=== PATIENT | male | born 1960 | race Caucasian/White ===

== ENCOUNTER 2018-10-09 14:29 | Inpatient (IN) | payer MEDICARE ==
[2018-10-09 15:14] LABS: Influenza A Molecular POSITIVE (Negative)
[2018-10-09] MEDS ORDERED: Ondansetron ODT TAB* 4 MG SL ONE (16:23)
[2018-10-09] MEDS ORDERED: Acetaminophen TAB* 325 MG PO ONE (16:23)
[2018-10-09] MEDS ORDERED: Oseltamivir CAP* 75 MG CAP PO ONE (16:23)
[2018-10-09 17:51] LABS: ABS Basophils 0 10^3/ul (0-0.2); ABS Eosinophils 0 10^3/ul (0-0.6); ABS Lymphocytes 0.5 10^3/ul (1.0-4.8); ABS Monocytes 0.5 10^3/ul (0-0.8); ABS Neutrophils 2.5 10^3/ul (1.5-7.7); ABS Nucleated RBC 0 10^3/ul; Eosinophil % 0 %; Hematocrit 50 % (42-52); Hemoglobin 17.3 g/dl (14.0-18.0); Lymphocyte % 14.4 %; Mean Corpuscular HGB Conc 35 g/dl (31-36); Mean Corpuscular Hemoglobin 32 pg (27-31); Mean Corpuscular Volume 93 fL (80-94); Mean Platelet Volume 8.9 fL (7.4-10.4); Nucleated Red Blood Cells % 0.2; Platelet Count 100 10^3/ul (150-450); Red Cell Distribution Width 14 % (10.5-15); White Blood Count 3.6 10^3/ul (3.5-10.8)
[2018-10-09] MEDS ORDERED: NS 0.9% 1000 ML** 1,000 ML IV ONE (17:59)
[2018-10-09] MEDS ORDERED: LORazepam TAB(*) 1 MG PO ONE (17:59)
[2018-10-09 18:01] LABS: Activated Partial Thrombo Time 34.2 seconds (26.0-36.3); INR 0.93 (0.77-1.02)
[2018-10-09 18:04] LABS: Albumin 4.7 g/dL (3.2-5.2); Albumin/Globulin Ratio 1.2 (1-3); BUN/Creatinine Ratio 9.1 (8-20); C Reactive Protein 59.81 mg/L (<8.01); Calcium 9.3 mg/dL (8.6-10.3); EGFR African American 94.6 (>60); EGFR Non-African American 78.2 (>60); Globulin 3.8 g/dL (2-4); Potassium 3.8 mmol/L (3.5-5.0); Total Bilirubin 0.6 mg/dL (0.2-1.0); Total Protein 8.5 g/dL (6.4-8.9); Troponin I 0.01 ng/mL (<0.04)
[2018-10-09 18:06] LABS: CKMB ng/mL 2.7 ng/mL (0.6-6.3)
[2018-10-09] MEDS ORDERED: Thiamine IV* 100 MG, Folic Acid IV* 1 MG, Multiple Vitamin IV ADULT* 10 ML in NS 0.9% 1... IV ONE (18:19)
[2018-10-09] MEDS ORDERED: LORazepam INJ* 2 MG/ML 1 ML VIAL IV PUSH ONE (18:21)
[2018-10-09] MEDS ORDERED: Multiple Vitamin IV ADULT* 10 ML VIAL ONE (18:27)
[2018-10-09] MEDS ORDERED: Folic Acid IV* 50 MG/10 ML VIAL ONE (18:27)
[2018-10-09] MEDS ORDERED: NS 0.9% 1000 ML** 1,000 ML ONE (18:27)
[2018-10-09] MEDS ORDERED: cefTRIAXone(*) 1 GM in NS 0.9% 50 ML* 50 ML IVPB ONE (18:31)
[2018-10-09] MEDS ORDERED: Albuterol/Ipratropium NEB.SOL* Albuterol 2.5 MG/Ipratropium 0.5 MG 3 ML INH ONE (18:33)
[2018-10-09] MEDS ORDERED: Azithromycin IV(*) 500 MG in NS 0.9% 250 ML* 250 ML IVPB SCH (19:00)
[2018-10-09] MEDS ORDERED: ED Azithromycn 500 mg/250 ml 500 MG/250 ML PREMIX.SET IVPB ONE (19:37)
[2018-10-09] MEDS: LORazepam INJ* 2 MG/ML 1 ML VIAL IV PUSH ONE ×2 (19:51→22:30)
--- NOTE | 2018-10-09 19:55 | ED ---
Respiratory - HPI Summary HPI Summary: 58 year old male presents with cough and shortness of breath for the past week. He admits to fever, tremors, and diaphoresis. He states today was not able to drink his normal amount of ETOH which claims 4-6 drinks a day. has history of ETOH withdrawal seizures. He states his chest feels tight but denies any chest pain. He denies any bowel pain. No sore throat. Denies any headache. States that he feels very weak. He is a smoker. He denies any history asthma or COPD. states that his symptoms have become worst over the past week. - History of Current Complaint Chief Complaint: EDFluSymptoms Stated Complaint: FLU Time Seen by Provider: 10/09/18 17:58 Pain Intensity: 8 Sputum Amount: None - Allergy/Home Medications Allergies/Adverse Reactions: Allergies Allergy/AdvReac Type Severity Reaction Status Date / Time No Known Allergies Allergy Verified 09/04/14 13:22 Home Medications: Home Medications Ibuprofen TAB* [Motrin TAB* 400 MG] 400 mg PO Q6H PRN 10/09/18 [History Confirmed 10/09/18] Multivitamins/Minerals TAB* [Theragran/minerals TAB*] 1 tab PO DAILY 10/09/18 [ History Confirmed 10/09/18] PMH/Surg Hx/FS Hx/Imm Hx Endocrine/Hematology History: Denies: Hx Anticoagulant Therapy, Hx Diabetes, Hx Thyroid Disease Cardiovascular History: Denies: Hx Hypertension, Hx Pacemaker/ICD Respiratory History: Denies: Hx Asthma, Hx Chronic Obstructive Pulmonary Disease (COPD) History: Reports: Hx Kidney Stones - RIGHT URETERAL CALCULUS 08/2014, RT URETERAL STENT Denies: Hx Renal Disease Neurological History: Denies: Hx Dementia, Hx Seizures Infectious Disease History: No Infectious Disease History: Denies: Hx Hepatitis, Hx Human Immunodeficiency Virus (HIV), Traveled Outside the [place] in Last 30 Days - Social History Alcohol Use: Daily Alcohol Amount: 3-4 daily Substance Use Type: Reports: None Smoking Status (MU): Current Every Day Smoker Review of Systems Positive: Fever, Chills, Skin Diaphoresis Positive: Chest Pain Positive: Shortness Of Breath, Cough Negative: Abdominal Pain All Other Systems Reviewed And Are Negative: Yes Physical Exam Triage Information Reviewed: Yes Vital Signs On Initial Exam: Initial Vitals Temp Pulse Resp BP Pulse Ox 99.9 F 128 24 164/95 96 10/09/18 14:33 10/09/18 14:33 10/09/18 14:33 10/09/18 14:33 10/09/18 14:33 Vital Signs Reviewed: Yes Appearance: Positive: Ill-Appearing Skin: Positive: Warm, Dry Head/Face: Positive: Normal Head/Face Inspection Eyes: Positive: Normal, EOMI, FRANCES, Conjunctiva Clear ENT: Positive: Normal ENT inspection, Pharynx normal, TMs normal Respiratory/Lung Sounds: Positive: Breath Sounds Present, Decreased Breath Sounds Cardiovascular: Positive: Normal, RRR Abdomen Description: Positive: Nontender, Soft Bowel Sounds: Positive: Present Musculoskeletal: Positive: Normal Neurological: Positive: Normal Psychiatric: Positive: Normal Diagnostics - Vital Signs Vital Signs Temp Pulse Resp BP Pulse Ox 10/09/18 19:51 17 10/09/18 19:00 120 25 99 10/09/18 18:55 102 20 99 10/09/18 18:49 102 21 161/98 97 10/09/18 18:32 16 10/09/18 18:19 107 28 140/91 91 10/09/18 18:11 16 10/09/18 18:10 91 10/09/18 18:00 105 20 88 10/09/18 17:50 115 23 118/81 91 10/09/18 17:48 112 19 91 10/09/18 16:29 99.8 F 114 24 144/103 98 10/09/18 14:33 99.9 F 128 24 164/95 96 - Laboratory Lab Results: Lab Results 10/09/18 10/09/18 10/09/18 Range/Units 15:08 17:24 17:24 WBC 3.6 (3.5-10.8) 10^3/ul RBC 5.40 (4.00-5.40) 10^6/ul Hgb 17.3 (14.0-18.0) g/dl Hct 50 (42-52) % MCV 93 (80-94) fL MCH 32 H (27-31) pg MCHC 35 (31-36) g/dl RDW 14 (10.5-15) % Plt Count 100 L (150-450) 10^3/ul MPV 8.9 (7.4-10.4) fL Neut % (Auto) 69.7 % Lymph % (Auto) 14.4 % [place] % (Auto) 15.1 % Eos % (Auto) 0 % Baso % (Auto) 0.8 % Absolute Neuts (auto) 2.5 (1.5-7.7) 10^3/ul Absolute Lymphs (auto) 0.5 L (1.0-4.8) 10^3/ul Absolute Monos (auto) 0.5 (0-0.8) 10^3/ul Absolute Eos (auto) 0 (0-0.6) 10^3/ul Absolute Basos (auto) 0 (0-0.2) 10^3/ul Absolute Nucleated RBC 0 10^3/ul Nucleated RBC % 0.2 INR (Anticoag Therapy) (0.77-1.02) APTT (26.0-36.3) seconds Sodium 130 L (135-145) mmol/L Potassium 3.8 (3.5-5.0) mmol/L Chloride 92 L (101-111) mmol/L Carbon Dioxide 26 (22-32) mmol/L Anion Gap 12 H (2-11) mmol/L BUN 9 (6-24) mg/dL Creatinine 0.99 (0.67-1.17) mg/dL Est GFR ( Amer) 94.6 (>60) Est GFR (Non-Af Amer) 78.2 (>60) BUN/Creatinine Ratio 9.1 (8-20) Glucose 116 H (70-100) mg/dL Lactic Acid (0.5-2.0) mmol/L Calcium 9.3 (8.6-10.3) mg/dL Total Bilirubin 0.60 (0.2-1.0) mg/dL AST 265 H (13-39) U/L ALT 138 H (7-52) U/L Alkaline Phosphatase 130 H (34-104) U/L Total Creatine Kinase 1204 H (10-223) U/L CK-MB (CK-2) 2.7 (0.6-6.3) ng/mL Troponin I 0.01 (<0.04) ng/mL C-Reactive Protein 59.81 H (<8.01) mg/L B-Natriuretic Peptide (<=100) pg/mL Total Protein 8.5 (6.4-8.9) g/dL Albumin 4.7 (3.2-5.2) g/dL Globulin 3.8 (2-4) g/dL Albumin/Globulin Ratio 1.2 (1-3) Influenza A (Rapid) Positive A (Negative) 10/09/18 10/09/18 10/09/18 Range/Units 17:24 17:25 17:25 WBC (3.5-10.8) 10^3/ul RBC (4.00-5.40) 10^6/ul Hgb (14.0-18.0) g/dl Hct (42-52) % MCV (80-94) fL MCH (27-31) pg MCHC (31-36) g/dl RDW (10.5-15) % Plt Count (150-450) 10^3/ul MPV (7.4-10.4) fL Neut % (Auto) % Lymph % (Auto) % [place] % (Auto) % Eos % (Auto) % Baso % (Auto) % Absolute Neuts (auto) (1.5-7.7) 10^3/ul Absolute Lymphs (auto) (1.0-4.8) 10^3/ul Absolute Monos (auto) (0-0.8) 10^3/ul Absolute Eos (auto) (0-0.6) 10^3/ul Absolute Basos (auto) (0-0.2) 10^3/ul Absolute Nucleated RBC 10^3/ul Nucleated RBC % INR (Anticoag Therapy) 0.93 (0.77-1.02) APTT 34.2 (26.0-36.3) seconds Sodium (135-145) mmol/L Potassium (3.5-5.0) mmol/L Chloride (101-111) mmol/L Carbon Dioxide (22-32) mmol/L Anion Gap (2-11) mmol/L BUN (6-24) mg/dL Creatinine (0.67-1.17) mg/dL Est GFR ( Amer) (>60) Est GFR (Non-Af Amer) (>60) BUN/Creatinine Ratio (8-20) Glucose (70-100) mg/dL Lactic Acid 1.5 (0.5-2.0) mmol/L Calcium (8.6-10.3) mg/dL Total Bilirubin (0.2-1.0) mg/dL AST (13-39) U/L ALT (7-52) U/L Alkaline Phosphatase (34-104) U/L Total Creatine Kinase (10-223) U/L CK-MB (CK-2) (0.6-6.3) ng/mL Troponin I (<0.04) ng/mL C-Reactive Protein (<8.01) mg/L B-Natriuretic Peptide 64 (<=100) pg/mL Total Protein (6.4-8.9) g/dL Albumin (3.2-5.2) g/dL Globulin (2-4) g/dL Albumin/Globulin Ratio (1-3) Influenza A (Rapid) (Negative) Result Diagrams: 10/09/18 17:24 10/09/18 17:24 Lab Statement: Any lab studies that have been ordered have been reviewed, and results considered in the medical decision making process. - Radiology chest Radiology Interpretation Completed By: Radiologist Summary of Radiographic Findings: IMPRESSION: #. Bronchopneumonia. - EKG No standard instances Cardiac Rate: Tachycardia EKG Rhythm: Sinus Tachycardia Re-Evaluation - Re-Evaluation First Eval Re-Evaluation Time: 19:59 Change: Worse Comment: again is tremolous, tachycardia and o2 dropped to 88 required oxygen Disposition - Course Course Of Treatment: 58 year old male presents with cough and shortness of breath for the past week. He admits to fever, tremors, and diaphoresis. He states today was not able to drink his normal amount of ETOH which claims 4-6 drinks a day. has history of ETOH withdrawal seizures. On exam decreased breath sounds heard. Abdomen soft nontender. Patient is tremulous. He gave dosed Ativan and patient's tremors improved. Flu A was positive. White blood cell count normal. Chest x-ray shows pneumonia. LFTs elevated likely due to alcohol. Gave banana bag. Will treat pneumonia with Rocephin and azithromycin. Patient became tremulous and O2 sats dropped required further dose Ativan and supplementary oxygen. Discussed patient feels too weak to go home. Discussed with Dr. Powell who agrees to admit patient. - Differential Dx - Cardiopulmonary Differential Diagnoses - Cardiopulmonary: Bronchitis, Laryngitis, Lower Resp Infection - Diagnoses Provider Diagnoses: Influenza, Pneumonia, Alcohol withdrawal Discharge - Sign-Out/Discharge Documenting (check all that apply): Patient Departure - Discharge Plan Condition: Stable Disposition: ADMITTED TO [facility] Referrals: No Primary Care Phys,NOPCP [Primary Care Provider] - - Billing Disposition and Condition Condition: STABLE Disposition: Admitted to [facility]
[2018-10-09] MEDS ORDERED: LORazepam TAB(*) 0.5 MG PO PRN (21:46)
[2018-10-09] MEDS ORDERED: Ondansetron INJ* 2 MG/ML VIAL IV PRN (21:46)
[2018-10-09] MEDS ORDERED: Morphine INJ* 2 MG/ML 1 ML SYRINGE (TWO MG - NEW SYRINGE VERSION) IV PRN (21:46)
[2018-10-09] MEDS ORDERED: Albuterol 2.5 MG/3 ML NEB.SOL* (0.083%) INH PRN (21:54)
[2018-10-09] MEDS ORDERED: LORazepam INJ* 2 MG/ML 1 ML VIAL ONE (22:29)
[2018-10-09] MEDS: Pantoprazole IV* 40 MG IV SCH (23:12)
[2018-10-09] MEDS: Oseltamivir CAP* 75 MG CAP PO SCH (23:12)
[2018-10-09] MEDS: NS 0.9% 1000 ML** 1,000 ML IV SCH (23:16)
--- NOTE | 2018-10-09 23:53 | HP ---
HISTORY AND PHYSICAL: DATE OF ADMISSION: 10/09/18 PRIMARY CARE PROVIDER: None. CHIEF COMPLAINT: Shortness of breath, cough, and weakness. HISTORY OF PRESENT ILLNESS: Mr. Gill is a 58-year-old male who is a poor historian and not able to provide any specific details regarding his symptoms. He does state that his symptoms were very similar to his granddaughter who was diagnosed with strep throat last week. He thought perhaps that is what he had and therefore he presented to the emergency room. He complains of feeling run down, short of breath, having increased cough, but no sputum production, drenching sweats and fevers over the last few days at least, though again he is unable to tell me how long this has been going on. He also states that he has had mild chest discomfort with coughing as well as upper abdominal pain that hurts all the time in the left upper quadrant, epigastrium and slightly in the right upper quadrant, though this pain is dramatically worse with coughing. The patient also typically drinks 15 beers per day, however, has cut back with being ill. He has noticed increased shaking in his arms and hands as of today. He did not have a flu shot. PAST MEDICAL HISTORY: History of nephrolithiasis. PAST SURGICAL HISTORY: 1. Ureteral stent placement. 2. Right foot surgery. MEDICATIONS: 1. Multivitamin one tab p.o. daily. 2. Ibuprofen 400 mg p.o. twice daily p.r.n. pain. ALLERGIES: No known drug allergies. FAMILY HISTORY: Mom is living. She reportedly has no medical problems. Dad of complications from diabetes. SOCIAL HISTORY: The patient smokes one pack per day, but has again cut back over the last few days. He drinks alcohol as above. 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 He is not . He does have a termite treater helper girlfriend, though he does not live with her. He has no children of his own. REVIEW OF SYSTEMS: The patient admits to fevers, and drenching sweats as above. He states that he has not eaten anything since last Saturday. He has chest discomfort as noted above. No lower extremity edema. He admits to cough and shortness of breath as above. He has vomited three times in the emergency room. He states he has had 15 episodes of diarrhea just today. He admits to the abdominal pain as above. No blood in the stool though. He was not specifically looking for it. No hematuria, no dysuria. 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 No sudden change or loss of vision. He does complain of dysphagia intermittently. He feels achy all over. He has no rashes, no anxiety, no depression. PHYSICAL EXAMINATION GENERAL: The patient is a well-developed, middle age male, seen lying in a stretcher, appearing to be acutely ill, but in no acute distress. VITAL SIGNS: Blood pressure is 106/76, pulse 109, respirations 12, temp 99.8, O2 sat 93% on 3 L. HEENT: There is anisocoria with the right pupil being greater than the left. Both react to light. . Extraocular muscles are intact. Oropharynx is clear. The posterior pharynx is generally erythematous. There is no exudate. There is no submandibular, cervical or supraclavicular adenopathy. Thyroid not enlarged. No thyroid nodules noted. NECK: Exam is unrevealing due to the patient having very thick neck. PULMONARY: Breath sounds are diminished throughout. I do not appreciate any wheezing or crackles at this time. CARDIAC: Normal S1, S2. Heart rate is tachycardiac and regular. There is no lower extremity edema. ABDOMEN: Bowel sounds are present. Abdomen is soft, nondistended. He is mildly tender to palpation in the left upper quadrant and epigastrium. MUSCULOSKELETAL: There is no cyanosis or clubbing of the digits except for the left first finger which had trauma, now appears to be a clubbed digit. There is full active range of motion of all 4 extremities. NEURO: Cranial nerves II through XII are grossly intact. Sensation is intact to light touch throughout. Strength is 5/5 and symmetric in both upper and lower extremities bilaterally. PSYCH: The patient is alert. He is oriented x3. Again, he is a poor historian. He is tremulous and appears to potentially be in alcohol withdrawal. SKIN: Warm and dry. There are no rashes. He does have a scabbed over lesions on the right anterior leg, which was result of an injury. DIAGNOSTIC STUDIES/LAB DATA: WBC 3.6, hemoglobin 17.3, hematocrit 50, platelets 100. INR 0.93. Sodium 130, potassium 3.8, chloride 92, CO2 26, BUN 9 , creatinine 0.99. Glucose 116, lactic acid 1.5, calcium 9.3, bilirubin 0.6, AST 265, ALT 138, alk phos 130. CPK 1204, CK-MB 2.7. Troponin 0.01. CRP 59.81. BNP 64. Albumin 4.7. Influenza A positive. EKG reveals sinus tachycardia without any acute ST-T wave abnormalities. Chest x-ray reveals patchy bilateral alveolar opacities superimposed on mild chronic prominence of the interstitial markings. This is suboptimal inspiration for this patient compared with prior exam documenting hyperinflation. The impression is bronchopneumonia. ASSESSMENT AND PLAN: Mr. Gill is a 58-year-old male with a history of alcoholism, who presents to the emergency room with complaints of being rundown , short of breath and coughing and is diagnosed with influenza. 1. Sepsis secondary to influenza. The patient has been tachycardiac and tachypneic related to being positive for influenza A. I do not believe he has a bacterial pneumonia superimposed on this. The patient again has had increased cough, but there has been no sputum production. At this point, I am going to hold off on any further antibiotic therapy. He did receive ceftriaxone and azithromycin in the emergency room. He will continue on Tamiflu 75 mg p.o. twice daily. He has received 1 L of normal saline and 1 L of banana bag in the emergency room. He will continue on normal saline at 125 mL per hour. 2. Alcohol withdrawal. At this point, the patient does appear to be in alcohol withdrawal likely from cutting back on the amount of alcohol he has been taking in over the last few days. He will be placed on the [place] protocol every two hours. 3. Abdominal pain. I suspect this is possibly a combination of gastritis, given the location of his pain and alcohol intake as well as musculoskeletal pain from the harsh coughing that he has been doing recently. The patient will be started on Protonix 40 mg IV twice daily. He will have Tylenol and morphine available for pain control. I am going to hold off on ibuprofen which he had been using on routine basis at home. 4. Alcoholic hepatitis. The patient's LFTs are elevated in a roughly 2:1 ratio. I suspect this is from his alcohol intake. These can be followed intermittently. I am not going to obtain right upper quadrant ultrasound at this point. 5. Mild rhabdomyolysis. The patient's CPK level is mildly elevated at 1204. We have no priors to compare to. I suspect this is just from being acutely ill. I will get a follow up level tomorrow. 6. Hyponatremia. The patient is mildly hyponatremic with a sodium of 130. This is likely from being acutely ill from the flu and possibly related to his alcohol intake. Followup basic metabolic panel will be obtained tomorrow morning. 7. DVT prophylaxis. According to the Adult Thrombosis Prophylaxis Risk Factor Assessment Guide, the patient has a total risk factor score of 1, making him low risk. Heparin 5000 units subcutaneous q.12 hours will be utilized as DVT prophylaxis. 8. Code status is DNR. The patient indicates that his girlfriend, Shaneka, is his healthcare proxy. TIME SPENT: 65 minutes was spent admitting this patient. [id number]/CPS #: [id number] MTDD
[2018-10-10] MEDS: LORazepam INJ* 2 MG/ML 1 ML VIAL IV PUSH PRN ×8 (03:43→23:17)
[2018-10-10] MEDS ORDERED: Albuterol 2.5 MG/3 ML NEB.SOL* (0.083%) INH PRN (07:34)
[2018-10-10] MEDS: Albuterol 2.5 MG/3 ML NEB.SOL* (0.083%) INH SCH ×2 (07:34→08:11)
[2018-10-10] MEDS: NS 0.9% 1000 ML** 1,000 ML IV SCH ×2 (07:35→15:50)
[2018-10-10] MEDS: Pantoprazole IV* 40 MG IV SCH ×2 (07:37→20:08)
[2018-10-10] MEDS: Heparin VIAL(*) 5000 UNITS/ML VIAL (FIVE THOUSAND) SUBCUT SCH ×2 (07:38→20:08)
[2018-10-10] MEDS: Folic Acid TAB* 1 MG PO SCH (07:42)
[2018-10-10] MEDS: predniSONE TAB* 20 MG PO SCH (07:42)
[2018-10-10] MEDS: Thiamine TAB* 100 MG TAB PO SCH (07:42)
[2018-10-10] MEDS: Oseltamivir CAP* 75 MG CAP PO SCH ×2 (07:42→20:08)
[2018-10-10 08:19] LABS: Calcium 8.3 mg/dL (8.6-10.3); EGFR African American 124.6 (>60); Potassium 3.3 mmol/L (3.5-5.0)
--- NOTE | 2018-10-10 12:12 | PN ---
Subjective Date of Service: 10/10/18 Interval History: Pt seen and examined. Meds and labs reviewed. CC: N/A ROS: Unable to obtain a reliable 14 point ROS given pt is actively withdrawing PHYSICAL EXAM: GEN APPEARANCE: Asleep, arousable, but mumbles unintelligible words, then goes right back to sleep, not in acute distress HEENT: NC/AT, PERRLA, moist oral mucosa, (-) throat erythema NECK: Soft, supple, (-) cervical LAD, (-)JVD HEART: S1S2 WNL, RRR, No MRG CHEST: CTA, BL, GAE, No W/R/R ABD: Soft, ND/NT, NABS 4x Q EXT: No C/C/E SKIN: Warm to touch PSYCH: No active psychosis, hallucinations, depression, SI/HI Objective Active Medications: Acetaminophen (Tylenol Tab*) 650 mg PO Q4H PRN PRN Reason: PAIN Albuterol (Ventolin 2.5 Mg/3 Ml Neb.Janessa*) 2.5 mg INH [id number] AWAKE PRN PRN Reason: SOB/WHEEZING Folic Acid (Folvite Tab*) 1 mg PO DAILY [facility] Last Admin: 10/10/18 07:42 Dose: 1 mg Heparin Sodium (Porcine) (Heparin Vial(*)) 5,000 units SUBCUT Q12HR [facility] Last Admin: 10/10/18 07:38 Dose: 5,000 units Sodium Chloride (Ns 0.9% 1000 Ml) 1,000 mls @ 125 mls/hr IV PER RATE [facility] Last Admin: 10/10/18 07:35 Dose: 125 mls/hr Azithromycin 500 mg/ Sodium (Chloride) 250 mls @ 250 mls/hr IVPB 1800 [facility] Lorazepam (Ativan Inj*) 0 mg IV PUSH Q2H PRN; Protocol PRN Reason: alcohol withdrawal Last Admin: 10/10/18 11:44 Dose: 2 mg Morphine Sulfate (Morphine Inj ((Syringe))*) 4 mg IV Q4H PRN PRN Reason: PAIN - MILD Ondansetron HCl (Zofran Inj*) 4 mg IV Q6H PRN PRN Reason: NAUSEA Oseltamivir Phosphate (Tamiflu Cap*) 75 mg PO BID [facility] Stop: 10/14/18 09:01 Last Admin: 10/10/18 07:42 Dose: 75 mg Pantoprazole Sodium (Protonix Iv*) 40 mg IV BID [facility] Last Admin: 10/10/18 07:37 Dose: 40 mg Prednisone (Deltasone Tab*) 40 mg PO DAILY [facility] Last Admin: 10/10/18 07:42 Dose: 40 mg Thiamine HCl (Vitamin B-1 Tab*) 100 mg PO DAILY [facility] Last Admin: 10/10/18 07:42 Dose: 100 mg Vital Signs - 8 hr 10/10/18 10/10/18 10/10/18 05:05 05:09 05:32 Temperature 100.3 F Pulse Rate 113 Respiratory 20 20 Rate Blood Pressure 154/89 (mmHg) O2 Sat by Pulse 99 Oximetry 10/10/18 10/10/18 10/10/18 05:38 07:09 07:37 Temperature 98.9 F Pulse Rate 116 Respiratory 18 32 Rate Blood Pressure 144/80 (mmHg) O2 Sat by Pulse Oximetry 10/10/18 10/10/18 10/10/18 08:00 09:05 09:42 Temperature 101.5 F Pulse Rate 110 Respiratory 32 30 30 Rate Blood Pressure 149/98 (mmHg) O2 Sat by Pulse 97 Oximetry 10/10/18 10/10/18 10/10/18 10:55 11:02 11:44 Temperature 101.0 F Pulse Rate 99 Respiratory 30 30 30 Rate Blood Pressure 160/92 (mmHg) O2 Sat by Pulse 93 Oximetry Oxygen Devices in Use Now: None Result Diagrams: 10/09/18 17:24 10/10/18 07:48 Additional Lab and Data: Lab Results 10/09/18 10/09/18 10/09/18 Range/Units 15:08 17:24 17:24 WBC 3.6 (3.5-10.8) 10^3/ul RBC 5.40 (4.00-5.40) 10^6/ul Hgb 17.3 (14.0-18.0) g/dl Hct 50 (42-52) % MCV 93 (80-94) fL MCH 32 H (27-31) pg MCHC 35 (31-36) g/dl RDW 14 (10.5-15) % Plt Count 100 L (150-450) 10^3/ul MPV 8.9 (7.4-10.4) fL Neut % (Auto) 69.7 % Lymph % (Auto) 14.4 % [place] % (Auto) 15.1 % Eos % (Auto) 0 % Baso % (Auto) 0.8 % Absolute Neuts (auto) 2.5 (1.5-7.7) 10^3/ul Absolute Lymphs (auto) 0.5 L (1.0-4.8) 10^3/ul Absolute Monos (auto) 0.5 (0-0.8) 10^3/ul Absolute Eos (auto) 0 (0-0.6) 10^3/ul Absolute Basos (auto) 0 (0-0.2) 10^3/ul Absolute Nucleated RBC 0 10^3/ul Nucleated RBC % 0.2 INR (Anticoag Therapy) (0.77-1.02) APTT (26.0-36.3) seconds Sodium 130 L (135-145) mmol/L Potassium 3.8 (3.5-5.0) mmol/L Chloride 92 L (101-111) mmol/L Carbon Dioxide 26 (22-32) mmol/L Anion Gap 12 H (2-11) mmol/L BUN 9 (6-24) mg/dL Creatinine 0.99 (0.67-1.17) mg/dL Est GFR ( Amer) 94.6 (>60) Est GFR (Non-Af Amer) 78.2 (>60) BUN/Creatinine Ratio 9.1 (8-20) Glucose 116 H (70-100) mg/dL Lactic Acid (0.5-2.0) mmol/L Calcium 9.3 (8.6-10.3) mg/dL Total Bilirubin 0.60 (0.2-1.0) mg/dL AST 265 H (13-39) U/L ALT 138 H (7-52) U/L Alkaline Phosphatase 130 H (34-104) U/L Total Creatine Kinase 1204 H (10-223) U/L CK-MB (CK-2) 2.7 (0.6-6.3) ng/mL Troponin I 0.01 (<0.04) ng/mL C-Reactive Protein 59.81 H (<8.01) mg/L B-Natriuretic Peptide (<=100) pg/mL Total Protein 8.5 (6.4-8.9) g/dL Albumin 4.7 (3.2-5.2) g/dL Globulin 3.8 (2-4) g/dL Albumin/Globulin Ratio 1.2 (1-3) Influenza A (Rapid) Positive A (Negative) 10/09/18 10/09/18 10/09/18 Range/Units 17:24 17:25 17:25 WBC (3.5-10.8) 10^3/ul RBC (4.00-5.40) 10^6/ul Hgb (14.0-18.0) g/dl Hct (42-52) % MCV (80-94) fL MCH (27-31) pg MCHC (31-36) g/dl RDW (10.5-15) % Plt Count (150-450) 10^3/ul MPV (7.4-10.4) fL Neut % (Auto) % Lymph % (Auto) % [place] % (Auto) % Eos % (Auto) % Baso % (Auto) % Absolute Neuts (auto) (1.5-7.7) 10^3/ul Absolute Lymphs (auto) (1.0-4.8) 10^3/ul Absolute Monos (auto) (0-0.8) 10^3/ul Absolute Eos (auto) (0-0.6) 10^3/ul Absolute Basos (auto) (0-0.2) 10^3/ul Absolute Nucleated RBC 10^3/ul Nucleated RBC % INR (Anticoag Therapy) 0.93 (0.77-1.02) APTT 34.2 (26.0-36.3) seconds Sodium (135-145) mmol/L Potassium (3.5-5.0) mmol/L Chloride (101-111) mmol/L Carbon Dioxide (22-32) mmol/L Anion Gap (2-11) mmol/L BUN (6-24) mg/dL Creatinine (0.67-1.17) mg/dL Est GFR ( Amer) (>60) Est GFR (Non-Af Amer) (>60) BUN/Creatinine Ratio (8-20) Glucose (70-100) mg/dL Lactic Acid 1.5 (0.5-2.0) mmol/L Calcium (8.6-10.3) mg/dL Total Bilirubin (0.2-1.0) mg/dL AST (13-39) U/L ALT (7-52) U/L Alkaline Phosphatase (34-104) U/L Total Creatine Kinase (10-223) U/L CK-MB (CK-2) (0.6-6.3) ng/mL Troponin I (<0.04) ng/mL C-Reactive Protein (<8.01) mg/L B-Natriuretic Peptide 64 (<=100) pg/mL Total Protein (6.4-8.9) g/dL Albumin (3.2-5.2) g/dL Globulin (2-4) g/dL Albumin/Globulin Ratio (1-3) Influenza A (Rapid) (Negative) Microbiology and Other Data: Microbiology 10/09/18 14:47 Influenza Types A,B Antigen - Final Nasal Specimen received for Influenza A/B Molecular testing Assess/Plan/Problems-Billing Assessment: - Patient Problems (1) Influenza Current Visit: Yes Status: Acute Code(s): J11.1 - FLU DUE TO UNIDENTIFIED INFLUENZA VIRUS W OTH RESP MANIFEST SNOMED Code(s): 7779475 Comment: -With sepsis -Continue Tamiflu as ordered -Continue IVFs and supportive therapy -Received Rocephin and Azithromycin last night and was not continued due to low suspicion of bacterial PNA -Continue to follow CRP (2) Alcohol withdrawal Current Visit: Yes Status: Acute Code(s): F10.239 - ALCOHOL DEPENDENCE WITH WITHDRAWAL, UNSPECIFIED SNOMED Code(s): 359022955 Comment: -Continue [place] protocol (3) Abdominal pain Current Visit: Yes Status: Acute Code(s): R10.9 - UNSPECIFIED ABDOMINAL PAIN SNOMED Code(s): 58670337 Comment: -Unclear if persistent given pt lethargic and confused today -Likely multifactorial from ETOH hepatitis, flu, and presumed gastritis -Continue Protonix and PRN Tylenol (4) Alcoholic hepatitis Current Visit: Yes Status: Acute Code(s): K70.10 - ALCOHOLIC HEPATITIS WITHOUT ASCITES SNOMED Code(s): 206432070 Comment: -Mild -Continue watchful waiting (5) Rhabdomyolysis Current Visit: Yes Status: Acute Code(s): M62.82 - RHABDOMYOLYSIS SNOMED Code(s): 758545562 Comment: #Mild rhabdomyolysis: -Continue IVFs (6) DVT prophylaxis Current Visit: Yes Status: Acute Code(s): ENB7623 - SNOMED Code(s): 670268510 Comment: -Continue Heparin [id number] Status and Disposition: -As above
[2018-10-10 12:25] LABS: C Reactive Protein 30.97 mg/L (<8.01)
[2018-10-10] MEDS: Azithromycin IV(*) 500 MG in NS 0.9% 250 ML* 250 ML IVPB SCH (17:10)
[2018-10-11] MEDS: NS 0.9% 1000 ML** 1,000 ML IV SCH ×3 (01:23→21:34)
[2018-10-11] MEDS: Acetaminophen TAB* 325 MG PO PRN ×2 (03:06→07:41)
[2018-10-11] MEDS: LORazepam INJ* 2 MG/ML 1 ML VIAL IV PUSH PRN ×6 (03:07→13:31)
[2018-10-11 07:21] LABS: ABS Basophils 0 10^3/ul (0-0.2); ABS Eosinophils 0 10^3/ul (0-0.6); ABS Lymphocytes 1.5 10^3/ul (1.0-4.8); ABS Monocytes 0.9 10^3/ul (0-0.8); ABS Neutrophils 2.8 10^3/ul (1.5-7.7); ABS Nucleated RBC 0 10^3/ul; Eosinophil % 0.1 %; Hematocrit 43 % (42-52); Hemoglobin 14.7 g/dl (14.0-18.0); Lymphocyte % 28.1 %; Mean Corpuscular HGB Conc 34 g/dl (31-36); Mean Corpuscular Hemoglobin 32 pg (27-31); Mean Corpuscular Volume 92 fL (80-94); Mean Platelet Volume 8.3 fL (7.4-10.4); Nucleated Red Blood Cells % 0.1; Platelet Count 87 10^3/ul (150-450); Red Blood Count 4.62 10^6/ul (4.00-5.40); Red Cell Distribution Width 14 % (10.5-15); White Blood Count 5.2 10^3/ul (3.5-10.8)
[2018-10-11 07:27] LABS: Albumin 3.4 g/dL (3.2-5.2); Albumin/Globulin Ratio 1.2 (1-3); BUN/Creatinine Ratio 16.7 (8-20); Calcium 8.2 mg/dL (8.6-10.3); EGFR African American 151.1 (>60); EGFR Non-African American 124.9 (>60); Globulin 2.9 g/dL (2-4); HDL Cholesterol 30.2 mg/dL; Magnesium 1.8 mg/dL (1.9-2.7); Phosphorus 1.9 mg/dL (2.5-5.0); Total Bilirubin 0.5 mg/dL (0.2-1.0); Total Protein 6.3 g/dL (6.4-8.9)
[2018-10-11] MEDS: Pantoprazole IV* 40 MG IV SCH ×2 (07:37→20:18)
[2018-10-11 07:38] LABS: TSH (Thyroid Stimulating Horm) 2.11 mcIU/mL (0.34-5.60)
[2018-10-11] MEDS: Heparin VIAL(*) 5000 UNITS/ML VIAL (FIVE THOUSAND) SUBCUT SCH ×2 (07:38→20:19)
[2018-10-11] MEDS: Oseltamivir CAP* 75 MG CAP PO SCH ×2 (07:41→20:22)
[2018-10-11] MEDS: predniSONE TAB* 20 MG PO SCH (07:41)
[2018-10-11] MEDS: Folic Acid TAB* 1 MG PO SCH (07:42)
[2018-10-11] MEDS: Thiamine TAB* 100 MG TAB PO SCH (07:42)
[2018-10-11] MEDS ORDERED: Albuterol 2.5 MG/3 ML NEB.SOL* (0.083%) INH PRN ×2 (11:43→19:49)
[2018-10-11] MEDS: Albuterol 2.5 MG/3 ML NEB.SOL* (0.083%) INH SCH ×2 (12:37→19:33)
--- NOTE | 2018-10-11 14:52 | PN ---
Subjective Date of Service: 10/11/18 Interval History: Pt seen and examined. Pt reported to be delirius and got up and mentioned to the RN that he is going home early afternoon. Tmax = 100.2 o/n. RN reported pt to have intermittent tachypnea. Meds and labs reviewed. CC: N/A ROS: Denied ROBLEDO/dizziness, F/C, N/V, CP, SOB, increased cough, sputum production , abd pain, diarrhea, constipation, dysuria, myalgias, arthralgias, throat pain , and new skin lesions. The rest of the 14 point ROS are unremarkable. PHYSICAL EXAM: GEN APPEARANCE: Asleep, more arousable and more interactive today than yesterday , not in acute distress, not oriented x 3 HEENT: NC/AT, PERRLA, moist oral mucosa, (-) throat erythema NECK: Soft, supple, (-) cervical LAD, (-)JVD HEART: S1S2 WNL, RRR, No MRG CHEST: Minor wheezing, GAE, No W/R/R ABD: Soft, ND/NT, NABS 4x Q EXT: No C/C/E SKIN: Warm to touch PSYCH: No active psychosis, hallucinations, depression, SI/HI Objective Active Medications: Acetaminophen (Tylenol Tab*) 650 mg PO Q4H PRN PRN Reason: PAIN Last Admin: 10/11/18 07:41 Dose: 650 mg Albuterol (Ventolin 2.5 Mg/3 Ml Neb.Janessa*) 2.5 mg INH Q2H PRN PRN Reason: SOB/WHEEZING Albuterol (Ventolin 2.5 Mg/3 Ml Neb.Janessa*) 2.5 mg INH RT.S8MG-M[facility] Last Admin: 10/11/18 12:37 Dose: 2.5 mg Folic Acid (Folvite Tab*) 1 mg PO DAILY [facility] Last Admin: 10/11/18 07:42 Dose: 1 mg Heparin Sodium (Porcine) (Heparin Vial(*)) 5,000 units SUBCUT Q12HR [facility] Last Admin: 10/11/18 07:38 Dose: 5,000 units Sodium Chloride (Ns 0.9% 1000 Ml) 1,000 mls @ 125 mls/hr IV PER RATE [facility] Last Admin: 10/11/18 11:39 Dose: 125 mls/hr Azithromycin 500 mg/ Sodium (Chloride) 250 mls @ 250 mls/hr IVPB 1800 [facility] Last Admin: 10/10/18 17:10 Dose: 250 mls/hr Lorazepam (Ativan Inj*) 0 - [address] .[address] [facility] PROTOCOL JANINA; Protocol Morphine Sulfate (Morphine Inj ((Syringe))*) 4 mg IV Q4H PRN PRN Reason: PAIN - MILD Ondansetron HCl (Zofran Inj*) 4 mg IV Q6H PRN PRN Reason: NAUSEA Oseltamivir Phosphate (Tamiflu Cap*) 75 mg PO BID [facility] Stop: 10/14/18 09:01 Last Admin: 10/11/18 07:41 Dose: 75 mg Pantoprazole Sodium (Protonix Iv*) 40 mg IV BID [facility] Last Admin: 10/11/18 07:37 Dose: 40 mg Prednisone (Deltasone Tab*) 40 mg PO DAILY [facility] Last Admin: 10/11/18 07:41 Dose: 40 mg Thiamine HCl (Vitamin B-1 Tab*) 100 mg PO DAILY [facility] Last Admin: 10/11/18 07:42 Dose: 100 mg Vital Signs - 8 hr 10/11/18 10/11/18 10/11/18 07:00 07:07 07:37 Temperature 100.1 F Pulse Rate 97 Respiratory 30 20 30 Rate Blood Pressure 150/98 (mmHg) O2 Sat by Pulse 93 Oximetry 10/11/18 10/11/18 10/11/18 08:58 09:00 09:03 Temperature 99.6 F Pulse Rate 92 Respiratory 24 24 24 Rate Blood Pressure 140/89 (mmHg) O2 Sat by Pulse 93 Oximetry 10/11/18 10/11/18 10/11/18 09:27 11:15 11:38 Temperature 98.5 F Pulse Rate 85 Respiratory 24 30 28 Rate Blood Pressure 159/101 (mmHg) O2 Sat by Pulse 93 Oximetry 10/11/18 10/11/18 10/11/18 11:39 12:39 13:00 Temperature Pulse Rate 94 Respiratory 28 17 28 Rate Blood Pressure (mmHg) O2 Sat by Pulse 96 Oximetry 10/11/18 10/11/18 10/11/18 13:14 13:31 13:32 Temperature 98.3 F Pulse Rate 90 Respiratory 28 24 24 Rate Blood Pressure 134/78 (mmHg) O2 Sat by Pulse 94 Oximetry 10/11/18 14:44 Temperature Pulse Rate Respiratory 24 Rate Blood Pressure (mmHg) O2 Sat by Pulse Oximetry Oxygen Devices in Use Now: None Result Diagrams: 10/11/18 06:16 10/11/18 06:16 Additional Lab and Data: Lab Results 10/09/18 10/09/18 10/09/18 Range/Units 15:08 17:24 17:24 WBC 3.6 (3.5-10.8) 10^3/ul RBC 5.40 (4.00-5.40) 10^6/ul Hgb 17.3 (14.0-18.0) g/dl Hct 50 (42-52) % MCV 93 (80-94) fL MCH 32 H (27-31) pg MCHC 35 (31-36) g/dl RDW 14 (10.5-15) % Plt Count 100 L (150-450) 10^3/ul MPV 8.9 (7.4-10.4) fL Neut % (Auto) 69.7 % Lymph % (Auto) 14.4 % [place] % (Auto) 15.1 % Eos % (Auto) 0 % Baso % (Auto) 0.8 % Absolute Neuts (auto) 2.5 (1.5-7.7) 10^3/ul Absolute Lymphs (auto) 0.5 L (1.0-4.8) 10^3/ul Absolute Monos (auto) 0.5 (0-0.8) 10^3/ul Absolute Eos (auto) 0 (0-0.6) 10^3/ul Absolute Basos (auto) 0 (0-0.2) 10^3/ul Absolute Nucleated RBC 0 10^3/ul Nucleated RBC % 0.2 INR (Anticoag Therapy) (0.77-1.02) APTT (26.0-36.3) seconds Sodium 130 L (135-145) mmol/L Potassium 3.8 (3.5-5.0) mmol/L Chloride 92 L (101-111) mmol/L Carbon Dioxide 26 (22-32) mmol/L Anion Gap 12 H (2-11) mmol/L BUN 9 (6-24) mg/dL Creatinine 0.99 (0.67-1.17) mg/dL Est GFR ( Amer) 94.6 (>60) Est GFR (Non-Af Amer) 78.2 (>60) BUN/Creatinine Ratio 9.1 (8-20) Glucose 116 H (70-100) mg/dL Lactic Acid (0.5-2.0) mmol/L Calcium 9.3 (8.6-10.3) mg/dL Total Bilirubin 0.60 (0.2-1.0) mg/dL AST 265 H (13-39) U/L ALT 138 H (7-52) U/L Alkaline Phosphatase 130 H (34-104) U/L Total Creatine Kinase 1204 H (10-223) U/L CK-MB (CK-2) 2.7 (0.6-6.3) ng/mL Troponin I 0.01 (<0.04) ng/mL C-Reactive Protein 59.81 H (<8.01) mg/L B-Natriuretic Peptide (<=100) pg/mL Total Protein 8.5 (6.4-8.9) g/dL Albumin 4.7 (3.2-5.2) g/dL Globulin 3.8 (2-4) g/dL Albumin/Globulin Ratio 1.2 (1-3) Influenza A (Rapid) Positive A (Negative) 10/09/18 10/09/18 10/09/18 Range/Units 17:24 17:25 17:25 WBC (3.5-10.8) 10^3/ul RBC (4.00-5.40) 10^6/ul Hgb (14.0-18.0) g/dl Hct (42-52) % MCV (80-94) fL MCH (27-31) pg MCHC (31-36) g/dl RDW (10.5-15) % Plt Count (150-450) 10^3/ul MPV (7.4-10.4) fL Neut % (Auto) % Lymph % (Auto) % [place] % (Auto) % Eos % (Auto) % Baso % (Auto) % Absolute Neuts (auto) (1.5-7.7) 10^3/ul Absolute Lymphs (auto) (1.0-4.8) 10^3/ul Absolute Monos (auto) (0-0.8) 10^3/ul Absolute Eos (auto) (0-0.6) 10^3/ul Absolute Basos (auto) (0-0.2) 10^3/ul Absolute Nucleated RBC 10^3/ul Nucleated RBC % INR (Anticoag Therapy) 0.93 (0.77-1.02) APTT 34.2 (26.0-36.3) seconds Sodium (135-145) mmol/L Potassium (3.5-5.0) mmol/L Chloride (101-111) mmol/L Carbon Dioxide (22-32) mmol/L Anion Gap (2-11) mmol/L BUN (6-24) mg/dL Creatinine (0.67-1.17) mg/dL Est GFR ( Amer) (>60) Est GFR (Non-Af Amer) (>60) BUN/Creatinine Ratio (8-20) Glucose (70-100) mg/dL Lactic Acid 1.5 (0.5-2.0) mmol/L Calcium (8.6-10.3) mg/dL Total Bilirubin (0.2-1.0) mg/dL AST (13-39) U/L ALT (7-52) U/L Alkaline Phosphatase (34-104) U/L Total Creatine Kinase (10-223) U/L CK-MB (CK-2) (0.6-6.3) ng/mL Troponin I (<0.04) ng/mL C-Reactive Protein (<8.01) mg/L B-Natriuretic Peptide 64 (<=100) pg/mL Total Protein (6.4-8.9) g/dL Albumin (3.2-5.2) g/dL Globulin (2-4) g/dL Albumin/Globulin Ratio (1-3) Influenza A (Rapid) (Negative) Microbiology and Other Data: Microbiology 10/09/18 14:47 Influenza Types A,B Antigen - Final Nasal Specimen received for Influenza A/B Molecular testing Assess/Plan/Problems-Billing Assessment: - Patient Problems (1) Influenza Current Visit: Yes Status: Acute Code(s): J11.1 - FLU DUE TO UNIDENTIFIED INFLUENZA VIRUS W OTH RESP MANIFEST SNOMED Code(s): 5374091 Comment: #Influenza: -Likely cause of mild temp elevation last night -With sepsis -Continue Tamiflu as ordered -Continue IVFs and supportive therapy -Continue to follow CRP -Likely causing RAD causing wheezing -Will place pt on Duonebs q6H ATC WA and q2H OF Albuterol PRN (2) Alcohol withdrawal Current Visit: Yes Status: Acute Code(s): F10.239 - ALCOHOL DEPENDENCE WITH WITHDRAWAL, UNSPECIFIED SNOMED Code(s): 972290237 Comment: -Adjusted IV WAM protocol given increasing needs (3) Abdominal pain Current Visit: Yes Status: Acute Code(s): R10.9 - UNSPECIFIED ABDOMINAL PAIN SNOMED Code(s): 72339954 Comment: -Likely multifactorial from ETOH hepatitis, flu, and presumed gastritis -Continue Protonix and PRN Tylenol (4) Alcoholic hepatitis Current Visit: Yes Status: Acute Code(s): K70.10 - ALCOHOLIC HEPATITIS WITHOUT ASCITES SNOMED Code(s): 002393648 Comment: -Mild -Continues to improve -Continue watchful waiting (5) Rhabdomyolysis Current Visit: Yes Status: Acute Code(s): M62.82 - RHABDOMYOLYSIS SNOMED Code(s): 317543812 Comment: #Mild rhabdomyolysis: -Will check CPKs in AM; likely WNL -Continue IVFs (6) DVT prophylaxis Current Visit: Yes Status: Acute Code(s): GTV8292 - SNOMED Code(s): 284175934 Comment: -Continue Heparin SQq12H Status and Disposition: -As above
[2018-10-11] MEDS ORDERED: LORazepam INJ* 2 MG/ML 1 ML VIAL IV PUSH SCH (15:00)
[2018-10-11] MEDS: LORazepam INJ* 2 MG/ML 1 ML VIAL IV PUSH SCH ×6 (15:40→23:58)
[2018-10-11] MEDS: Azithromycin IV(*) 500 MG in NS 0.9% 250 ML* 250 ML IVPB SCH (17:27)
[2018-10-11] MEDS ORDERED: Mouth Piece, Nicotine* 1 EACH CARTRIDGE INH ONE (23:00)
[2018-10-11] MEDS ORDERED: Nicotine Inhaler* 10 MG AMP INH PRN (23:30)
[2018-10-12] MEDS ORDERED: Haloperidol INJ IV/IM* 5 MG/ML AMP IV SLOW PU PRN (01:07)
[2018-10-12] MEDS: LORazepam INJ* 2 MG/ML 1 ML VIAL IV PUSH SCH ×10 (01:59→22:28)
[2018-10-12 07:28] LABS: ABS Basophils 0 10^3/ul (0-0.2); ABS Eosinophils 0 10^3/ul (0-0.6); ABS Lymphocytes 1.8 10^3/ul (1.0-4.8); ABS Monocytes 1.3 10^3/ul (0-0.8); ABS Nucleated RBC 0 10^3/ul; Eosinophil % 0.1 %; Hematocrit 44 % (42-52); Hemoglobin 15.2 g/dl (14.0-18.0); Lymphocyte % 24.9 %; Mean Corpuscular HGB Conc 35 g/dl (31-36); Mean Corpuscular Hemoglobin 32 pg (27-31); Mean Corpuscular Volume 92 fL (80-94); Mean Platelet Volume 7.9 fL (7.4-10.4); Nucleated Red Blood Cells % 0.1; Platelet Count 99 10^3/ul (150-450); Red Blood Count 4.77 10^6/ul (4.00-5.40); Red Cell Distribution Width 14 % (10.5-15)
[2018-10-12 07:40] LABS: Albumin 3.5 g/dL (3.2-5.2); Albumin/Globulin Ratio 1.2 (1-3); BUN/Creatinine Ratio 13.2 (8-20); Calcium 8.6 mg/dL (8.6-10.3); EGFR Non-African American 120.6 (>60); Magnesium 1.7 mg/dL (1.9-2.7); Potassium 2.9 mmol/L (3.5-5.0); Total Bilirubin 0.7 mg/dL (0.2-1.0); Total Protein 6.5 g/dL (6.4-8.9)
[2018-10-12] MEDS: Acetaminophen TAB* 325 MG PO PRN (07:41)
[2018-10-12] MEDS: D5W 1/2 NS KCl 20 Meq 1000 ML* 1,000 ML IV SCH (08:37)
[2018-10-12] MEDS: Thiamine TAB* 100 MG TAB PO SCH (08:38)
[2018-10-12] MEDS: Folic Acid TAB* 1 MG PO SCH (08:38)
[2018-10-12] MEDS: Heparin VIAL(*) 5000 UNITS/ML VIAL (FIVE THOUSAND) SUBCUT SCH ×2 (08:38→22:03)
[2018-10-12] MEDS: Oseltamivir CAP* 75 MG CAP PO SCH (08:38)
[2018-10-12] MEDS: Pantoprazole IV* 40 MG IV SCH ×2 (08:38→22:03)
[2018-10-12] MEDS: predniSONE TAB* 20 MG PO SCH (08:39)
[2018-10-12 08:48] LABS: C Reactive Protein 16.21 mg/L (<8.01)
[2018-10-12] MEDS ORDERED: Potassium Chlor TAB* 20 MEQ TAB.ER PO STA (09:21)
[2018-10-12 09:23] LABS: INR 0.9 (0.77-1.02)
[2018-10-12] MEDS ORDERED: Dexmedetomidine* 400 MCG in NS 0.9% 100 ML* 96 ML IVPB SCH (09:30)
[2018-10-12] MEDS ORDERED: Magnesium Sulfate IV* 3 GM in NS 0.9% 100 ML* 100 ML IVPB ONE (09:30)
[2018-10-12] MEDS ORDERED: Potassium Phosphate IV* 15 MMOLE in NS 0.9% 250 ML* 250 ML IVPB ONE (09:30)
[2018-10-12] MEDS ORDERED: Potassium Chloride LIQUID* 20 MEQ PACKET PO ONE (11:00)
[2018-10-12] MEDS: Albuterol 2.5 MG/3 ML NEB.SOL* (0.083%) INH PRN (12:22)
--- NOTE | 2018-10-12 14:26 | PN ---
Subjective Date of Service: 10/12/18 Interval History: Pt seen and examined. Meds and labs reviewed. D/W Dr. Toussaint who mentioned that pts WAMs score>14. A few minutes later, RN called me for another high WAM score and is getting harder to re-direct pt and to keep calm. Pt transferred to ICU for Precedex gtt protocol ordered. TMax = 100.3 CC: N/A ROS: Unable to obtain reliable ROS given pt is actively withdrawing, confused, and agitated PHYSICAL EXAM: GEN APPEARANCE: Lethargic, arousable, agitated and confused HEENT: NC/AT, PERRLA, moist oral mucosa, (-) throat erythema NECK: Soft, supple, (-) cervical LAD, (-)JVD HEART: S1S2 WNL, RRR, No MRG CHEST: CTA, BL, GAE, No W/R/R ABD: Soft, ND/NT, NABS 4x Q EXT: No C/C/E SKIN: Warm to touch PSYCH: No active psychosis, hallucinations, depression, SI/HI Objective Active Medications: Acetaminophen (Tylenol Tab*) 650 mg PO Q4H PRN PRN Reason: PAIN Last Admin: 10/12/18 07:41 Dose: 650 mg Albuterol (Ventolin 2.5 Mg/3 Ml Neb.Janessa*) 2.5 mg INH Q2H PRN PRN Reason: SOB/WHEEZING Last Admin: 10/12/18 12:22 Dose: 2.5 mg Folic Acid (Folvite Tab*) 1 mg PO DAILY [facility] Last Admin: 10/12/18 08:38 Dose: Not Given Heparin Sodium (Porcine) (Heparin Vial(*)) 5,000 units SUBCUT Q12HR [facility] Last Admin: 10/12/18 08:38 Dose: 5,000 units Azithromycin 500 mg/ Sodium (Chloride) 250 mls @ 250 mls/hr IVPB 1800 [facility] Last Admin: 10/11/18 17:27 Dose: 250 mls/hr Potassium Chloride/Dextrose (D5w 1/2 Ns Kcl 20 Meq 1000 Ml*) 1,000 mls @ 75 mls /hr IV PER RATE [facility] Stop: 10/13/18 22:19 Last Admin: 10/12/18 08:37 Dose: 75 mls/hr Dexmedetomidine HCl 400 mcg/ (Sodium Chloride) 100 mls @ 3.78 mls/hr IVPB Q24H ON [facility] OF [facility]; Protocol Last Admin: 10/12/18 10:14 Dose: 7.5 mls/hr Potassium Phosphate 15 mmole/ (Sodium Chloride) 255 mls @ 42 mls/hr IVPB ONCE ONE Stop: 10/12/18 15:34 Last Admin: 10/12/18 10:18 Dose: 42 mls/hr Lorazepam (Ativan Inj*) 0 - 10 mg IV PUSH .PER [facility] PROTOCOL ON LICENSE OF [facility]; Protocol Last Admin: 10/12/18 10:58 Dose: 6 mg Morphine Sulfate (Morphine Inj ((Syringe))*) 4 mg IV Q4H PRN PRN Reason: PAIN - MILD Nicotine (Nicotine Inhaler*) 10 mg INH Q2H PRN PRN Reason: CRAVING Last Admin: 10/12/18 00:06 Dose: 10 mg Ondansetron HCl (Zofran Inj*) 4 mg IV Q6H PRN PRN Reason: NAUSEA Last Admin: 10/12/18 05:19 Dose: 4 mg Oseltamivir Phosphate (Tamiflu Cap*) 75 mg PO BID [facility] Stop: 10/14/18 09:01 Last Admin: 10/12/18 08:38 Dose: 75 mg Pantoprazole Sodium (Protonix Iv*) 40 mg IV BID [facility] Last Admin: 10/12/18 08:38 Dose: 40 mg Prednisone (Deltasone Tab*) 40 mg PO DAILY [facility] Last Admin: 10/12/18 08:39 Dose: 40 mg Thiamine HCl (Vitamin B-1 Tab*) 100 mg PO DAILY [facility] Last Admin: 10/12/18 08:38 Dose: Not Given Vital Signs - 8 hr 10/12/18 10/12/18 10/12/18 06:45 07:00 07:22 Temperature 100.3 F Pulse Rate 124 Respiratory 30 20 24 Rate Blood Pressure 119/70 (mmHg) O2 Sat by Pulse 92 Oximetry 10/12/18 10/12/18 10/12/18 07:41 08:00 09:00 Temperature Pulse Rate Respiratory 28 30 30 Rate Blood Pressure (mmHg) O2 Sat by Pulse Oximetry 10/12/18 10/12/18 10/12/18 09:09 09:11 09:23 Temperature 99.6 F Pulse Rate 87 Respiratory 24 28 26 Rate Blood Pressure 144/76 (mmHg) O2 Sat by Pulse 93 Oximetry 10/12/18 10/12/18 10/12/18 09:57 10:00 10:01 Temperature Pulse Rate 86 83 81 Respiratory 33 27 29 Rate Blood Pressure 144/95 145/95 (mmHg) O2 Sat by Pulse 89 89 93 Oximetry 10/12/18 10/12/18 10/12/18 10:16 10:21 10:31 Temperature 99.9 F Pulse Rate 82 78 91 Respiratory 37 28 20 Rate Blood Pressure 134/82 134/82 131/112 (mmHg) O2 Sat by Pulse 94 94 93 Oximetry 10/12/18 10/12/18 10/12/18 10:45 10:58 11:00 Temperature Pulse Rate 79 72 Respiratory 28 30 24 Rate Blood Pressure 133/85 (mmHg) O2 Sat by Pulse 92 95 Oximetry 10/12/18 10/12/18 10/12/18 11:02 11:16 11:31 Temperature Pulse Rate 97 70 64 Respiratory 31 30 28 Rate Blood Pressure 147/98 165/99 179/100 (mmHg) O2 Sat by Pulse 92 93 92 Oximetry 10/12/18 10/12/18 10/12/18 11:47 11:57 12:00 Temperature 99.1 F Pulse Rate 72 61 Respiratory 27 25 33 Rate Blood Pressure 166/111 (mmHg) O2 Sat by Pulse 91 93 Oximetry 10/12/18 10/12/18 10/12/18 12:01 12:15 12:16 Temperature Pulse Rate 59 61 54 Respiratory 23 25 20 Rate Blood Pressure 153/114 178/102 (mmHg) O2 Sat by Pulse 93 95 92 Oximetry 10/12/18 10/12/18 10/12/18 12:31 13:00 13:02 Temperature Pulse Rate 60 60 58 Respiratory 24 22 21 Rate Blood Pressure 150/96 161/93 (mmHg) O2 Sat by Pulse 93 91 91 Oximetry 10/12/18 10/12/18 13:15 13:31 Temperature Pulse Rate 59 58 Respiratory 22 19 Rate Blood Pressure 164/88 160/95 (mmHg) O2 Sat by Pulse 91 91 Oximetry Oxygen Devices in Use Now: Nasal Cannula Result Diagrams: 10/12/18 06:56 10/12/18 06:56 Additional Lab and Data: Lab Results 10/09/18 10/09/18 10/09/18 Range/Units 15:08 17:24 17:24 WBC 3.6 (3.5-10.8) 10^3/ul RBC 5.40 (4.00-5.40) 10^6/ul Hgb 17.3 (14.0-18.0) g/dl Hct 50 (42-52) % MCV 93 (80-94) fL MCH 32 H (27-31) pg MCHC 35 (31-36) g/dl RDW 14 (10.5-15) % Plt Count 100 L (150-450) 10^3/ul MPV 8.9 (7.4-10.4) fL Neut % (Auto) 69.7 % Lymph % (Auto) 14.4 % [place] % (Auto) 15.1 % Eos % (Auto) 0 % Baso % (Auto) 0.8 % Absolute Neuts (auto) 2.5 (1.5-7.7) 10^3/ul Absolute Lymphs (auto) 0.5 L (1.0-4.8) 10^3/ul Absolute Monos (auto) 0.5 (0-0.8) 10^3/ul Absolute Eos (auto) 0 (0-0.6) 10^3/ul Absolute Basos (auto) 0 (0-0.2) 10^3/ul Absolute Nucleated RBC 0 10^3/ul Nucleated RBC % 0.2 INR (Anticoag Therapy) (0.77-1.02) APTT (26.0-36.3) seconds Sodium 130 L (135-145) mmol/L Potassium 3.8 (3.5-5.0) mmol/L Chloride 92 L (101-111) mmol/L Carbon Dioxide 26 (22-32) mmol/L Anion Gap 12 H (2-11) mmol/L BUN 9 (6-24) mg/dL Creatinine 0.99 (0.67-1.17) mg/dL Est GFR ( Amer) 94.6 (>60) Est GFR (Non-Af Amer) 78.2 (>60) BUN/Creatinine Ratio 9.1 (8-20) Glucose 116 H (70-100) mg/dL Lactic Acid (0.5-2.0) mmol/L Calcium 9.3 (8.6-10.3) mg/dL Total Bilirubin 0.60 (0.2-1.0) mg/dL AST 265 H (13-39) U/L ALT 138 H (7-52) U/L Alkaline Phosphatase 130 H (34-104) U/L Total Creatine Kinase 1204 H (10-223) U/L CK-MB (CK-2) 2.7 (0.6-6.3) ng/mL Troponin I 0.01 (<0.04) ng/mL C-Reactive Protein 59.81 H (<8.01) mg/L B-Natriuretic Peptide (<=100) pg/mL Total Protein 8.5 (6.4-8.9) g/dL Albumin 4.7 (3.2-5.2) g/dL Globulin 3.8 (2-4) g/dL Albumin/Globulin Ratio 1.2 (1-3) Influenza A (Rapid) Positive A (Negative) 10/09/18 10/09/18 10/09/18 Range/Units 17:24 17:25 17:25 WBC (3.5-10.8) 10^3/ul RBC (4.00-5.40) 10^6/ul Hgb (14.0-18.0) g/dl Hct (42-52) % MCV (80-94) fL MCH (27-31) pg MCHC (31-36) g/dl RDW (10.5-15) % Plt Count (150-450) 10^3/ul MPV (7.4-10.4) fL Neut % (Auto) % Lymph % (Auto) % [place] % (Auto) % Eos % (Auto) % Baso % (Auto) % Absolute Neuts (auto) (1.5-7.7) 10^3/ul Absolute Lymphs (auto) (1.0-4.8) 10^3/ul Absolute Monos (auto) (0-0.8) 10^3/ul Absolute Eos (auto) (0-0.6) 10^3/ul Absolute Basos (auto) (0-0.2) 10^3/ul Absolute Nucleated RBC 10^3/ul Nucleated RBC % INR (Anticoag Therapy) 0.93 (0.77-1.02) APTT 34.2 (26.0-36.3) seconds Sodium (135-145) mmol/L Potassium (3.5-5.0) mmol/L Chloride (101-111) mmol/L Carbon Dioxide (22-32) mmol/L Anion Gap (2-11) mmol/L BUN (6-24) mg/dL Creatinine (0.67-1.17) mg/dL Est GFR ( Amer) (>60) Est GFR (Non-Af Amer) (>60) BUN/Creatinine Ratio (8-20) Glucose (70-100) mg/dL Lactic Acid 1.5 (0.5-2.0) mmol/L Calcium (8.6-10.3) mg/dL Total Bilirubin (0.2-1.0) mg/dL AST (13-39) U/L ALT (7-52) U/L Alkaline Phosphatase (34-104) U/L Total Creatine Kinase (10-223) U/L CK-MB (CK-2) (0.6-6.3) ng/mL Troponin I (<0.04) ng/mL C-Reactive Protein (<8.01) mg/L B-Natriuretic Peptide 64 (<=100) pg/mL Total Protein (6.4-8.9) g/dL Albumin (3.2-5.2) g/dL Globulin (2-4) g/dL Albumin/Globulin Ratio (1-3) Influenza A (Rapid) (Negative) Microbiology and Other Data: Microbiology 10/09/18 14:47 Influenza Types A,B Antigen - Final Nasal Specimen received for Influenza A/B Molecular testing Assess/Plan/Problems-Billing Assessment: - Patient Problems (1) Alcohol withdrawal Current Visit: Yes Status: Acute Code(s): F10.239 - ALCOHOL DEPENDENCE WITH WITHDRAWAL, UNSPECIFIED SNOMED Code(s): 096665869 Comment: -Continue Lorazepam IV PRN -Placed pt on Precedex gtt protocol and transferred to ICU for closer monitoring (2) Influenza Current Visit: Yes Status: Acute Code(s): J11.1 - FLU DUE TO UNIDENTIFIED INFLUENZA VIRUS W OTH RESP MANIFEST SNOMED Code(s): 4862576 Comment: #Influenza: -With sepsis -Continue Tamiflu, day #3/5 -Continue IVFs and supportive therapy -CRP continues to improve -Likely causing RAD causing wheezing -Continue Albuterol PRN (3) Abdominal pain Current Visit: Yes Status: Acute Code(s): R10.9 - UNSPECIFIED ABDOMINAL PAIN SNOMED Code(s): 31068194 Comment: -Likely multifactorial from ETOH hepatitis, flu, and presumed gastritis -Continue Protonix and PRN Tylenol (4) Alcoholic hepatitis Current Visit: Yes Status: Acute Code(s): K70.10 - ALCOHOLIC HEPATITIS WITHOUT ASCITES SNOMED Code(s): 702143844 Comment: -Mild; stable -Continue watchful waiting (5) Rhabdomyolysis Current Visit: Yes Status: Acute Code(s): M62.82 - RHABDOMYOLYSIS SNOMED Code(s): 079570820 Comment: #Mild rhabdomyolysis: -CPKs continue to decrease -D/C previous IVF and place pt on D5W 1/2NS (6) DVT prophylaxis Current Visit: Yes Status: Acute Code(s): JDA0207 - SNOMED Code(s): 268801521 Comment: -Continue Heparin SQq12H Status and Disposition: -Corrected Magnesium and phosphate levels; continue to follow -As above
[2018-10-12] MEDS: KCL 20 MEQ/100 ML IVPREMIX* 20 MEQ/100 ML BAG IV SCH ×2 (15:36→17:54)
[2018-10-12] MEDS ORDERED: hydrALAZINE IV* 20 MG/ML VIAL IV SLOW PU PRN ×2 (16:16→19:04)
[2018-10-12] MEDS: Dexmedetomidine* 400 MCG in NS 0.9% 100 ML* 96 ML IVPB SCH ×2 (16:48→22:09)
[2018-10-12] MEDS ORDERED: Piperacillin/Tazobac ADVAN(*) 3.375 GM in NS 0.9% 100 ML* 100 ML IVPB ONE (17:22)
[2018-10-12] MEDS ORDERED: Zosyn per Pharmacy* NOTE FOLLOW UP SCH (18:00)
[2018-10-12] MEDS: Azithromycin IV(*) 500 MG in NS 0.9% 250 ML* 250 ML IVPB SCH (19:59)
[2018-10-12] MEDS: ZOSYN 3.375 GM Q8H per EXTENDED INFUSION IVPB SCH ×2 (22:14)
[2018-10-12] MEDS ORDERED: niCARdipine 0.1MG/ML IVPREMIX* 20 MG/200 ML BAG IV ONE (23:17)
[2018-10-12 23:24] LABS: Albumin 3.8 g/dL (3.2-5.2); Albumin/Globulin Ratio 1.2 (1-3); BUN/Creatinine Ratio 17.5 (8-20); Calcium 8.3 mg/dL (8.6-10.3); EGFR African American 178.9 (>60); EGFR Non-African American 147.9 (>60); Globulin 3.3 g/dL (2-4); Magnesium 2.2 mg/dL (1.9-2.7); Potassium 3.9 mmol/L (3.5-5.0); Total Protein 7.1 g/dL (6.4-8.9)
[2018-10-12] MEDS ORDERED: Midazolam IV for DRIP* 100 MG in NS 0.9% 100 ML* 80 ML IV SCH (23:45)
[2018-10-12] MEDS ORDERED: niCARdipine 0.1MG/ML IVPREMIX* 20 MG/200 ML BAG IV SCH (23:45)
[2018-10-12] MEDS: Midazolam BAG 1 MG/ML* 100 MG/100 ML BAG IV ONE (23:55)
[2018-10-13] MEDS: Oseltamivir CAP* 75 MG CAP PO SCH ×2 (00:05→09:03)
[2018-10-13] MEDS: D5W 1/2 NS KCl 20 Meq 1000 ML* 1,000 ML IV SCH (00:06)
[2018-10-13] MEDS: Midazolam BAG 1 MG/ML* 100 MG/100 ML BAG IV ONE (00:11)
[2018-10-13] MEDS ORDERED: PHENOBARBITAL IVPB ONE (02:00)
[2018-10-13] MEDS ORDERED: NS 0.9% IVPB ONE ×2 (02:00→10:00)
[2018-10-13] MEDS: Albuterol 2.5 MG/3 ML NEB.SOL* (0.083%) INH PRN (04:18)
[2018-10-13 05:24] LABS: ABS Basophils 0 10^3/ul (0-0.2); ABS Eosinophils 0 10^3/ul (0-0.6); ABS Lymphocytes 0.8 10^3/ul (1.0-4.8); ABS Monocytes 1.1 10^3/ul (0-0.8); ABS Neutrophils 3.1 10^3/ul (1.5-7.7); ABS Nucleated RBC 0 10^3/ul; Eosinophil % 0 %; Hematocrit 46 % (42-52); Hemoglobin 15.6 g/dl (14.0-18.0); Lymphocyte % 16.4 %; Mean Corpuscular HGB Conc 34 g/dl (31-36); Mean Corpuscular Hemoglobin 32 pg (27-31); Mean Corpuscular Volume 93 fL (80-94); Mean Platelet Volume 8.3 fL (7.4-10.4); Nucleated Red Blood Cells % 0.1; Platelet Count 126 10^3/ul (150-450); Red Blood Count 4.88 10^6/ul (4.00-5.40); Red Cell Distribution Width 15 % (10.5-15)
[2018-10-13 05:46] LABS: Albumin 3.7 g/dL (3.2-5.2); Albumin/Globulin Ratio 1.2 (1-3); BUN/Creatinine Ratio 20.3 (8-20); Calcium 8.3 mg/dL (8.6-10.3); EGFR African American 143.5 (>60); EGFR Non-African American 118.6 (>60); Phosphorus 2.8 mg/dL (2.5-5.0); Potassium 3.6 mmol/L (3.5-5.0); Total Bilirubin 0.9 mg/dL (0.2-1.0); Total Protein 6.7 g/dL (6.4-8.9)
[2018-10-13 05:53] LABS: INR 0.91 (0.77-1.02)
[2018-10-13] MEDS: ZOSYN 3.375 GM Q8H per EXTENDED INFUSION IVPB SCH ×6 (06:06→23:25)
[2018-10-13] MEDS: Azithromycin IV(*) 500 MG in NS 0.9% 250 ML* 250 ML IVPB SCH ×2 (07:50→19:43)
[2018-10-13] MEDS: Heparin VIAL(*) 5000 UNITS/ML VIAL (FIVE THOUSAND) SUBCUT SCH ×2 (08:11→22:17)
[2018-10-13] MEDS: Pantoprazole IV* 40 MG IV SCH ×2 (08:11→22:17)
[2018-10-13] MEDS: Folic Acid TAB* 1 MG PO SCH (09:02)
[2018-10-13] MEDS: predniSONE TAB* 20 MG PO SCH (09:03)
[2018-10-13] MEDS: Thiamine TAB* 100 MG TAB PO SCH (09:03)
[2018-10-13] MEDS ORDERED: Vancomycin(*) 1,000 MG in NS 0.9% 250 ML* 250 ML IVPB ONE (09:14)
[2018-10-13] MEDS ORDERED: Calcium Gluconate INJ* 2 GM in NS 0.9% 100 ML* 100 ML IV ONE (09:15)
[2018-10-13] MEDS ORDERED: Thiamine IV 100 MG, Folic Acid IV* 1 MG, Multiple Vitamin IV ADULT* 10 ML in D5NS 0.9% ... IV ONE (09:22)
[2018-10-13] MEDS ORDERED: Vancomycin per Pharmacy* NOTE FOLLOW UP PRN (09:27)
[2018-10-13] MEDS ORDERED: Midazolam* 1 MG/ML 2 ML VIAL (2 MG) IV ONE (10:00)
[2018-10-13] MEDS ORDERED: DEXMEDETOMIDINE IVPB ONE (10:00)
[2018-10-13] MEDS ORDERED: Dexmedetomidine* 400 MCG in NS 0.9% 100 ML* 96 ML IVPB SCH (10:00)
[2018-10-13] MEDS ORDERED: Midazolam IV for DRIP* 100 MG in NS 0.9% 100 ML* 80 ML IV SCH (10:00)
[2018-10-13] MEDS ORDERED: LORazepam INJ* 2 MG/ML 1 ML VIAL ONE (10:08)
[2018-10-13] MEDS: LORazepam INJ* 2 MG/ML 1 ML VIAL IV PUSH ONE ×2 (11:22→14:16)
[2018-10-13] MEDS ORDERED: LORazepam VIAL (for drip)* 200 MG in D5W 100 ML BAG* 100 ML IVPB SCH (12:00)
[2018-10-13] MEDS ORDERED: LORazepam INJ* 2 MG/ML 1 ML VIAL IV PUSH ONE (12:00)
[2018-10-13] MEDS ORDERED: Lidocaine 2% JELLY* 6 ML JELLY TOPICAL ONE ×2 (13:35→14:00)
[2018-10-13] MEDS ORDERED: fentaNYL* 50 MCG/ML 2 ML VIAL (100 MCG VIAL) ONE (14:02)
[2018-10-13] MEDS ORDERED: Succinylcholine* 20 MG/ML 10 ML VIAL ONE (14:05)
[2018-10-13] MEDS ORDERED: Propofol* 100 ML ONE (14:11)
[2018-10-13] MEDS ORDERED: fentaNYL* 50 MCG/ML 5 ML VIAL (250 MCG VIAL) ONE (14:30)
[2018-10-13] MEDS ORDERED: Etomidate* 2 MG/ML 20 ML VIAL (40 MG) ONE (14:30)
[2018-10-13] MEDS ORDERED: Midazolam* 1 MG/ML 10 ML VIAL (10 MG) ONE (14:30)
[2018-10-13] MEDS: Propofol* 1000 MG (10 MG/ML 100 ml) @ Per Protocol (in ICU Pyxis) IV SCH (16:57)
[2018-10-13] MEDS: Chlorhexidine MOUTHWASH 0.12%* 15 ML UDC SWISH SPIT SCH ×2 (17:38→22:17)
--- NOTE | 2018-10-13 17:42 | PN ---
Date of Service: 10/13/18 Critical Care Services: Patient was transferred to the ICU service overnight for treatment of alcohol withdrawal. In the morning when I evaluated the patient he was agitated and had withdrawal symptoms. He was also diagnosed with influenza. During the course of the daypatient continues to require higher amount of sedation, subsequently requiring intubation. Prior to intubation he was following some commands and moving all 4 extremities. There was no focal deficits noted. Vital Signs: Temp Pulse Resp BP SpO2 FiO2 98 F 58 16 171/104 98 50 10/13/18 15:50 10/13/18 17:01 10/13/18 17:00 10/13/18 17:00 10/13/18 17:01 10/13 17:25 Physical Exam: Gen: Middle-aged male in obvious distress and agitation HEENT: mucous membranes with his were dry Lungs: rhonchi bilaterally Cardiac: S1 and S2 regular Abdomen: soft nontender Extremities: no edema Neuro: moving all extremitieshowever agitated Fluid Balance (Past 24 Hours): I= O= Net Intake & Output 10/11/18 10/12/18 10/13/18 10/14/18 06:59 06:59 06:59 06:59 Intake Total 3620 1119 2538.4 1521 Output Total 375 800 675 Balance 3620 744 1738.4 846 Weight 154 lb 12.232 oz Intake: IV Fluids 3140 999 1489.8 1411 Banana bag 981 D5W 1/2 NS 20 meq KCL 1446 NS (0.9%) 3140 999 43.8 430 IVPB 925 ABX - AZITHROMYCIN 591 Magnesium sulfate 110 Potassium Phosphate 224 Medicated IV 123.6 93 CC - Dexmedetomidine/ 123.6 83 Precedex CC - Propofol/Diprivan 10 IV Narcotic Infusion 17 Versed 17 Oral 480 120 0 0 Output: Urine 375 800 400 [place] 275 Other: Estimated Void Large Medium Large Large # Bowel Movements 0 1 Estimated Stool Amount Medium Small # Voids 1 5 1 1 Labs: Laboratory Results - last 24 hr 10/12/18 10/12/18 10/13/18 22:39 22:54 05:05 WBC 5.0 RBC 4.88 Hgb 15.6 Hct 46 MCV 93 MCH 32 H MCHC 34 RDW 15 Plt Count 126 L MPV 8.3 Neut % (Auto) 61.6 Lymph % (Auto) 16.4 [place] % (Auto) 21.8 Eos % (Auto) 0 Baso % (Auto) 0.2 Absolute Neuts (auto) 3.1 Absolute Lymphs (auto) 0.8 L Absolute Monos (auto) 1.1 H Absolute Eos (auto) 0 Absolute Basos (auto) 0 Absolute Nucleated RBC 0 Nucleated RBC % 0.1 INR (Anticoag Therapy) Patient Temperature ABG pH ABG pH (Temp Correct) ABG pCO2 ABG pCO2 (Temp Corrct ABG pO2 ABG pO2 (Temp Correct ABG HCO3 ABG O2 Saturation ABG Base Excess Respiration Rate O2 Delivery Device Ventilator Type Vent Mode FiO2 Inspiratory Time PEEP Pressure Support Pressure Control EPAP IPAP BiPAP Sodium 138 Potassium 3.9 Chloride 107 Carbon Dioxide 23 Anion Gap 8 BUN 10 Creatinine 0.57 L Est GFR ( Amer) 178.9 Est GFR (Non-Af Amer) 147.9 BUN/Creatinine Ratio 17.5 Glucose 170 H Calcium 8.3 L Phosphorus Magnesium 2.2 Total Bilirubin 1.00 AST 195 H ALT 169 H Alkaline Phosphatase 86 Ammonia 89 H B-Natriuretic Peptide Total Protein 7.1 Albumin 3.8 Globulin 3.3 Albumin/Globulin Ratio 1.2 10/13/18 10/13/18 10/13/18 05:05 05:20 05:20 WBC RBC Hgb Hct MCV MCH MCHC RDW Plt Count MPV Neut % (Auto) Lymph % (Auto) [place] % (Auto) Eos % (Auto) Baso % (Auto) Absolute Neuts (auto) Absolute Lymphs (auto) Absolute Monos (auto) Absolute Eos (auto) Absolute Basos (auto) Absolute Nucleated RBC Nucleated RBC % INR (Anticoag Therapy) 0.91 Patient Temperature ABG pH ABG pH (Temp Correct) ABG pCO2 ABG pCO2 (Temp Corrct ABG pO2 ABG pO2 (Temp Correct ABG HCO3 ABG O2 Saturation ABG Base Excess Respiration Rate O2 Delivery Device Ventilator Type Vent Mode FiO2 Inspiratory Time PEEP Pressure Support Pressure Control EPAP IPAP BiPAP Sodium 139 Potassium 3.6 Chloride 108 Carbon Dioxide 22 Anion Gap 9 BUN 14 Creatinine 0.69 Est GFR ( Amer) 143.5 Est GFR (Non-Af Amer) 118.6 BUN/Creatinine Ratio 20.3 H Glucose 138 H Calcium 8.3 L Phosphorus 2.8 Magnesium 2.0 Total Bilirubin 0.90 AST 156 H ALT 154 H Alkaline Phosphatase 82 Ammonia B-Natriuretic Peptide 518 H Total Protein 6.7 Albumin 3.7 Globulin 3.0 Albumin/Globulin Ratio 1.2 10/13/18 15:55 WBC RBC Hgb Hct MCV MCH MCHC RDW Plt Count MPV Neut % (Auto) Lymph % (Auto) [place] % (Auto) Eos % (Auto) Baso % (Auto) Absolute Neuts (auto) Absolute Lymphs (auto) Absolute Monos (auto) Absolute Eos (auto) Absolute Basos (auto) Absolute Nucleated RBC Nucleated RBC % INR (Anticoag Therapy) Patient Temperature Not Reportable ABG pH 7.39 ABG pH (Temp Correct) Not Reportable ABG pCO2 41 ABG pCO2 (Temp Corrct Not Reportable ABG pO2 157 H ABG pO2 (Temp Correct Not Reportable ABG HCO3 24.8 ABG O2 Saturation 100.0 H ABG Base Excess -0.2 Respiration Rate Not Reportable O2 Delivery Device vent Ventilator Type Not Reportable Vent Mode Not Reportable FiO2 50 Inspiratory Time Not Reportable PEEP Not Reportable Pressure Support Not Reportable Pressure Control Not Reportable EPAP Not Reportable IPAP Not Reportable BiPAP Not Reportable Sodium Potassium Chloride Carbon Dioxide Anion Gap BUN Creatinine Est GFR ( Amer) Est GFR (Non-Af Amer) BUN/Creatinine Ratio Glucose Calcium Phosphorus Magnesium Total Bilirubin AST ALT Alkaline Phosphatase Ammonia B-Natriuretic Peptide Total Protein Albumin Globulin Albumin/Globulin Ratio Studies: chest x-ray consistent with bilateral airspace Nutrition: will initiate tube feeds Impression: 1.Acute Alcohol Withdrawal patient known to drink heavily, presented to the hospital with increasing shortness of breath, found to have influenza and pneumonia. Continue treatment with IV Ativan, and Precedex. When necessarypropofol added in case of extreme agitation. We'll initiate chlordiazepoxide via NG continue banana bag daily 2.pneumonia/sepsis continue Tamiflu, vancomycin and initiated Zosyn alcoholic hepatitis continue to follow LFTs rhabdomyolysis continue follow CPK andadequate urine output Delgado placed GI and DVT prophylaxis respiratory failure continue vent support with sedation ABG with adequate ventilation and oxygenation Plan: Critical Care Time: 70
[2018-10-13] MEDS ORDERED: NS 0.9% 250 ML* 250 ML ONE ×2 (19:34→19:52)
[2018-10-13] MEDS: Dexmedetomidine* 400 MCG in NS 0.9% 100 ML* 96 ML IVPB SCH (19:41)
[2018-10-13] MEDS: Vancomycin(*) 1,000 MG in NS 0.9% 250 ML* 250 ML IVPB SCH (19:58)
[2018-10-13] MEDS: Oseltamivir SUSP 75 MG dose* 75 MG/12.5 ML ORAL.SYRIN PO SCH (22:17)
[2018-10-14] MEDS: Propofol* 1000 MG (10 MG/ML 100 ml) @ Per Protocol (in ICU Pyxis) IV SCH ×3 (01:13→17:58)
[2018-10-14] MEDS: LORazepam VIAL (for drip)* 200 MG in D5W 100 ML BAG* 100 ML IVPB SCH ×2 (02:26→16:42)
[2018-10-14] MEDS: Dexmedetomidine* 400 MCG in NS 0.9% 100 ML* 96 ML IVPB SCH ×3 (03:39→19:54)
[2018-10-14] MEDS: Vancomycin(*) 1,000 MG in NS 0.9% 250 ML* 250 ML IVPB SCH ×3 (04:05→19:55)
[2018-10-14] MEDS: ZOSYN 3.375 GM Q8H per EXTENDED INFUSION IVPB SCH ×6 (06:08→21:46)
[2018-10-14 06:48] LABS: Hematocrit 48 % (42-52); Hemoglobin 16.2 g/dl (14.0-18.0); Mean Corpuscular HGB Conc 34 g/dl (31-36); Mean Corpuscular Hemoglobin 32 pg (27-31); Mean Corpuscular Volume 95 fL (80-94); Mean Platelet Volume 8.6 fL (7.4-10.4); Platelet Count 133 10^3/ul (150-450); Red Blood Count 5.01 10^6/ul (4.00-5.40); Red Cell Distribution Width 15 % (10.5-15); White Blood Count 6.2 10^3/ul (3.5-10.8)
[2018-10-14 07:12] LABS: Albumin 3.2 g/dL (3.2-5.2); BUN/Creatinine Ratio 12.2 (8-20); Calcium 8.2 mg/dL (8.6-10.3); EGFR African American 132.4 (>60); EGFR Non-African American 109.4 (>60); Globulin 3.1 g/dL (2-4); Potassium 3.1 mmol/L (3.5-5.0); Total Bilirubin 0.9 mg/dL (0.2-1.0); Total Protein 6.3 g/dL (6.4-8.9)
[2018-10-14] MEDS ORDERED: Thiamine IV 100 MG, Folic Acid IV* 1 MG, Multiple Vitamin IV ADULT* 10 ML in NS 0.9% 10... IV ONE (08:18)
--- NOTE | 2018-10-14 08:21 | PN ---
Date of Service: 10/14/18 Critical Care Services: pt was examined in am moving all ext off sedation not follow in commands Vital Signs: Temp Pulse Resp BP SpO2 FiO2 99.7 F 68 21 130/86 95 40 10/14/18 07:45 10/14/18 07:45 10/14/18 07:00 10/14/18 07:45 10/14/18 07:45 10/14 04:00 Physical Exam: Gen: No acute distress on sedation and vent support HEENT: poor oral dent MM moist Lungs: good air entry Cardiac: s1 s2 regular Abdomen: soft NT ND +BS Extremities: No edema Neuro: sedated, pupils are slugish off sedation moving all ext Fluid Balance (Past 24 Hours): I= O= Net Intake & Output 10/12/18 10/13/18 10/14/18 10/15/18 06:59 06:59 06:59 06:59 Intake Total 1119 2538.4 2805.4 0 Output Total 385 446 9465 Balance 744 1738.4 1405.4 0 Weight 154 lb 12.232 oz 161 lb 6.054 oz Intake: IV Fluids 999 1489.8 1411 Banana bag 981 D5W 1/2 NS 20 meq KCL 1446 NS (0.9%) 999 43.8 430 IVPB 925 1083 ABX - AZITHROMYCIN 591 1083 Magnesium sulfate 110 Potassium Phosphate 224 Medicated IV 123.6 294.4 CC - Dexmedetomidine/ 123.6 185 Precedex CC - Propofol/Diprivan 109.4 IV Narcotic Infusion 17 Versed 17 Oral 120 0 0 0 Output: Urine 375 800 400 Delgado 1000 Other: Estimated Void Medium Large Large # Bowel Movements 1 Estimated Stool Amount Small # Voids 5 1 1 Albuterol (Ventolin 2.5 Mg/3 Ml Neb.Janessa*) 2.5 mg INH Q2H PRN PRN Reason: SOB/WHEEZING Last Admin: 10/13/18 04:18 Dose: 2.5 mg Chlorhexidine Gluconate (Peridex Mouth Wash 0.12%*) 15 ml SWISH SPIT QID [facility] Last Admin: 10/14/18 12:27 Dose: 15 ml Heparin Sodium (Porcine) (Heparin Vial(*)) 5,000 units SUBCUT Q12HR [facility] Last Admin: 10/14/18 09:31 Dose: 5,000 units Piperacillin Sod/Tazobactam (Sod 3.375 gm/ Sodium Chloride) 100 mls @ 25 mls/ hr IVPB Q8H [facility] Last Admin: 10/14/18 14:17 Dose: 25 mls/hr Azithromycin 500 mg/ Sodium (Chloride) 250 mls @ 250 mls/hr IVPB Q24HR@2000 [facility] Last Admin: 10/13/18 19:43 Dose: 250 mls/hr Vancomycin HCl 1,000 mg/ (Sodium Chloride) 250 mls @ 166.667 mls/hr IVPB Q8H [facility] Last Admin: 10/14/18 12:25 Dose: 166.667 mls/hr Propofol (Diprivan*) 100 mls @ 0 mls/hr IV .(Initial Rate) [facility]; Protocol Last Admin: 10/14/18 12:34 Dose: 16.8 mls/hr Dexmedetomidine HCl 400 mcg/ (Sodium Chloride) 100 mls @ 0 mls/hr IVPB Q8H [facility] ; Protocol Last Admin: 10/14/18 12:17 Dose: 12.3 mls/hr Lorazepam 200 mg/ Dextrose 200 mls @ 14 mls/hr IVPB Q14H [facility]; Protocol Last Admin: 10/14/18 02:26 Dose: 14 mls/hr Potassium Chloride (Potassium Chloride 20 Meq/100 Ml Ivpremix*) 20 meq in 100 mls @ 50 mls/hr IV Q2H [facility] Stop: 10/14/18 16:44 Last Admin: 10/14/18 14:45 Dose: 50 mls/hr Thiamine HCl 100 mg/ Folic Acid 1 mg/ Multivitamins 10 ml / Sodium Chloride 1, 011.2 mls @ 100 mls/hr IV ONCE ONE Stop: 10/14/18 18:24 Last Admin: 10/14/18 09:25 Dose: 100 mls/hr Multivitamins 10 ml/ Folic Acid 1 mg/ Dextrose/Sodium Chloride 1,010.2 mls @ 100 mls/hr IVPB Q24H [facility] Lactulose (Lactulose*) 30 ml NG TUBE TID [facility] Stop: 10/15/18 23:59 Last Admin: 10/14/18 12:27 Dose: 30 ml Ondansetron HCl (Zofran Inj*) 4 mg IV Q6H PRN PRN Reason: NAUSEA Last Admin: 10/12/18 05:19 Dose: 4 mg Oseltamivir Phosphate (Tamiflu Susp 75 Mg Dose*) 75 mg PO BID [facility] Stop: 10/15/18 09:01 Last Admin: 10/14/18 09:31 Dose: 75 mg Oxazepam (Serax Cap*) 30 mg PO TID [facility] Last Admin: 10/14/18 14:58 Dose: 30 mg Pantoprazole Sodium (Protonix Iv*) 40 mg IV BID [facility] Last Admin: 10/14/18 09:31 Dose: 40 mg Pharmacy Consult (Zosyn Per Pharmacy*) 1 note FOLLOW UP .ZOSYN PER PHARMACY [facility] Pharmacy Consult (Vancomycin Per Pharmacy*) 1 note FOLLOW UP . PRN PRN Reason: PER PROTOCOL Pharmacy Profile Note (Vancomycin Trough Check) 1 note FOLLOW UP ONCE ONE Stop: 10/15/18 11:31 Thiamine HCl (Vitamin B-1 Tab*) 100 mg G TUBE DAILY [facility] Labs: Laboratory Results - last 24 hr 10/13/18 10/14/18 10/14/18 15:55 06:15 06:15 WBC 6.2 RBC 5.01 Hgb 16.2 Hct 48 MCV 95 H MCH 32 H MCHC 34 RDW 15 Plt Count 133 L MPV 8.6 Patient Temperature Not Reportable ABG pH 7.39 ABG pH (Temp Correct) Not Reportable ABG pCO2 41 ABG pCO2 (Temp Corrct Not Reportable ABG pO2 157 H ABG pO2 (Temp Correct Not Reportable ABG HCO3 24.8 ABG O2 Saturation 100.0 H ABG Base Excess -0.2 Respiration Rate Not Reportable O2 Delivery Device vent Ventilator Type Not Reportable Vent Mode Not Reportable FiO2 50 Inspiratory Time Not Reportable PEEP Not Reportable Pressure Support Not Reportable Pressure Control Not Reportable EPAP Not Reportable IPAP Not Reportable BiPAP Not Reportable Sodium 141 Potassium 3.1 L Chloride 110 Carbon Dioxide 23 Anion Gap 8 BUN 9 Creatinine 0.74 Est GFR ( Amer) 132.4 Est GFR (Non-Af Amer) 109.4 BUN/Creatinine Ratio 12.2 Glucose 118 H Calcium 8.2 L Total Bilirubin 0.90 AST 308 H ALT 292 H Alkaline Phosphatase 83 Ammonia Total Creatine Kinase 430 H Total Protein 6.3 L Albumin 3.2 Globulin 3.1 Albumin/Globulin Ratio 1.0 10/14/18 06:15 WBC RBC Hgb Hct MCV MCH MCHC RDW Plt Count MPV Patient Temperature ABG pH ABG pH (Temp Correct) ABG pCO2 ABG pCO2 (Temp Corrct ABG pO2 ABG pO2 (Temp Correct ABG HCO3 ABG O2 Saturation ABG Base Excess Respiration Rate O2 Delivery Device Ventilator Type Vent Mode FiO2 Inspiratory Time PEEP Pressure Support Pressure Control EPAP IPAP BiPAP Sodium Potassium Chloride Carbon Dioxide Anion Gap BUN Creatinine Est GFR ( Amer) Est GFR (Non-Af Amer) BUN/Creatinine Ratio Glucose Calcium Total Bilirubin AST ALT Alkaline Phosphatase Ammonia 100 H Total Creatine Kinase Total Protein Albumin Globulin Albumin/Globulin Ratio Nutrition: tube feeds started Impression: ETOH withdrawal Currently sedated ativan and precedex Propofol being titrated down started on oxazepam 30 tid and will con't to taper iv meds Banana Bag with multivit Hepatic encephalopathy elevation in ammonia likely due to alcohol hepatitis start lactulose and correct hypokalemia Influenza Con't tamiful Pneumonia sputum cult pending con't zosyn and vanco Respiratory failure current on vent attempt weaning once more awake hypokalemia IV potassium replacememt GI Start tube feeds. protonix for prophylaxis DVT Prophylaxis Renal stable Disposition spoke to the patients family and updated them on his condition Plan: Critical Care Time:
[2018-10-14] MEDS: Heparin VIAL(*) 5000 UNITS/ML VIAL (FIVE THOUSAND) SUBCUT SCH ×2 (09:31→20:49)
[2018-10-14] MEDS: Chlorhexidine MOUTHWASH 0.12%* 15 ML UDC SWISH SPIT SCH ×4 (09:31→20:50)
[2018-10-14] MEDS: Pantoprazole IV* 40 MG IV SCH ×2 (09:31→20:49)
[2018-10-14] MEDS: Oseltamivir SUSP 75 MG dose* 75 MG/12.5 ML ORAL.SYRIN PO SCH ×2 (09:31→20:49)
[2018-10-14] MEDS: Thiamine TAB* 100 MG TAB PO SCH (09:41)
[2018-10-14] MEDS ORDERED: Oxazepam CAP* 15 MG PO SCH (10:00)
[2018-10-14] MEDS: KCL 20 MEQ/100 ML IVPREMIX* 20 MEQ/100 ML BAG IV SCH ×3 (10:27→14:45)
[2018-10-14] MEDS ORDERED: fentaNYL* 50 MCG/ML 2 ML VIAL (100 MCG VIAL) ONE (10:53)
[2018-10-14] MEDS: Oxazepam CAP* 10 MG PO SCH ×3 (12:22→20:50)
[2018-10-14] MEDS ORDERED: fentaNYL* 50 MCG/ML 2 ML VIAL (100 MCG VIAL) IV STA (13:33)
[2018-10-14 17:20] LABS: BUN/Creatinine Ratio 9.6 (8-20); Blood Urea Nitrogen 9 mg/dL (6-24); CO2 Carbon Dioxide 23 mmol/L (22-32); Calcium 7.5 mg/dL (8.6-10.3); EGFR African American 100.5 (>60); Glucose 119 mg/dL (70-100); Sodium 139 mmol/L (135-145)
[2018-10-14 17:22] LABS: Chloride 112 mmol/L (101-111)
[2018-10-14 18:40] LABS: Anion Gap 4 mmol/L (2-11)
[2018-10-14] MEDS: Azithromycin IV(*) 500 MG in NS 0.9% 250 ML* 250 ML IVPB SCH (19:55)
[2018-10-15] MEDS: Propofol* 1000 MG (10 MG/ML 100 ml) @ Per Protocol (in ICU Pyxis) IV SCH ×3 (02:36→20:02)
[2018-10-15] MEDS: Vancomycin(*) 1,000 MG in NS 0.9% 250 ML* 250 ML IVPB SCH ×2 (03:43→12:55)
[2018-10-15] MEDS: Dexmedetomidine* 400 MCG in NS 0.9% 100 ML* 96 ML IVPB SCH ×4 (03:43→20:02)
[2018-10-15 06:36] LABS: ABS Basophils 0 10^3/ul (0-0.2); ABS Eosinophils 0.1 10^3/ul (0-0.6); ABS Lymphocytes 1.6 10^3/ul (1.0-4.8); ABS Monocytes 1.1 10^3/ul (0-0.8); ABS Neutrophils 3.5 10^3/ul (1.5-7.7); ABS Nucleated RBC 0 10^3/ul; Eosinophil % 0.8 %; Hematocrit 46 % (42-52); Hemoglobin 15.3 g/dl (14.0-18.0); Lymphocyte % 25.9 %; Mean Corpuscular HGB Conc 33 g/dl (31-36); Mean Corpuscular Hemoglobin 32 pg (27-31); Mean Corpuscular Volume 95 fL (80-94); Mean Platelet Volume 8.4 fL (7.4-10.4); Nucleated Red Blood Cells % 0.1; Platelet Count 174 10^3/ul (150-450); Red Blood Count 4.83 10^6/ul (4.00-5.40); Red Cell Distribution Width 15 % (10.5-15); White Blood Count 6.2 10^3/ul (3.5-10.8)
[2018-10-15 06:41] LABS: INR 0.96 (0.77-1.02)
[2018-10-15] MEDS: LORazepam VIAL (for drip)* 200 MG in D5W 100 ML BAG* 100 ML IVPB SCH ×2 (06:42→21:23)
[2018-10-15 06:51] LABS: Albumin/Globulin Ratio 1.1 (1-3); BUN/Creatinine Ratio 8.4 (8-20); Calcium 7.9 mg/dL (8.6-10.3); EGFR Non-African American 95.8 (>60); Globulin 2.7 g/dL (2-4); Indirect Bilirubin 0.4 mg/dL (0.3-1.0); Potassium 3.4 mmol/L (3.5-5.0); Total Bilirubin 0.6 mg/dL (0.2-1.0); Total Protein 5.7 g/dL (6.4-8.9)
[2018-10-15] MEDS: ZOSYN 3.375 GM Q8H per EXTENDED INFUSION IVPB SCH ×6 (07:50→23:02)
[2018-10-15] MEDS: Pantoprazole IV* 40 MG IV SCH ×2 (07:52→21:15)
[2018-10-15] MEDS: Chlorhexidine MOUTHWASH 0.12%* 15 ML UDC SWISH SPIT SCH ×4 (07:52→21:13)
[2018-10-15] MEDS: Thiamine TAB* 100 MG TAB G TUBE SCH (07:53)
[2018-10-15] MEDS: Heparin VIAL(*) 5000 UNITS/ML VIAL (FIVE THOUSAND) SUBCUT SCH ×2 (07:53→21:19)
[2018-10-15] MEDS: Oseltamivir SUSP 75 MG dose* 75 MG/12.5 ML ORAL.SYRIN PO SCH (07:54)
[2018-10-15] MEDS: [UNRECOGNIZED DRUG - OTHER] IVPB SCH (08:04)
[2018-10-15] MEDS: MULTIPLE VITAMIN IVPB SCH (08:04)
[2018-10-15] MEDS: FOLIC ACID IVPB SCH (08:04)
[2018-10-15 08:43] LABS: Magnesium 1.8 mg/dL (1.9-2.7)
[2018-10-15 08:49] LABS: Phosphorus 3.1 mg/dL (2.5-5.0)
[2018-10-15] MEDS: Oxazepam CAP* 10 MG PO SCH ×3 (09:46→21:26)
[2018-10-15] MEDS ORDERED: Vancomycin Trough Check NOTE FOLLOW UP ONE (11:30)
--- NOTE | 2018-10-15 14:32 | PN ---
Date of Service: 10/15/18 Critical Care Services: overnight con't to be sedated on meds Vital Signs: Temp Pulse Resp BP SpO2 FiO2 98.1 F 71 20 166/103 95 30 10/15/18 12:00 10/15/18 12:00 10/15/18 12:00 10/15/18 12:00 10/15/18 12:00 10/15 12:00 Physical Exam: Gen: sedated HEENT: mm pink Lungs: good air entry b/l Cardiac: s1 s2 rrr Abdomen: soft Extremities: no edema or cynosis neuro moving all ext off sedation still not following commands Fluid Balance (Past 24 Hours): I= O= Net Intake & Output 10/13/18 10/14/18 10/15/18 10/16/18 06:59 06:59 06:59 06:59 Intake Total 2538.4 2805.4 4060.5 285 Output Total 800 1400 1430 1320 Balance 1738.4 1405.4 2630.5 -1035 Weight 154 lb 12.232 oz 161 lb 6.054 oz 163 lb 12.855 oz Intake: IV Fluids 1489.8 1411 2159 Banana bag 981 1124 D5W 1/2 NS 20 meq KCL 1446 NS (0.9%) 43.8 430 1035 IVPB 925 1083 719 ABX - AZITHROMYCIN 591 1083 D5W 1/2 NS 20 meq KCL 189 Magnesium sulfate 110 NS (0.9%) 530 Potassium Phosphate 224 Medicated IV 123.6 294.4 564.5 CC - Dexmedetomidine/ 123.6 185 292.5 Precedex CC - Propofol/Diprivan 109.4 272 IV Narcotic Infusion 17 388 Ativan 388 Versed 17 Oral 0 0 0 0 Tube Feeding 150 224 Tube Feeding Flush Amount 20 61 NG Tube Irrigate Amount 60 Output: Urine 800 400 100 Delgado 1000 1330 645 Tube Feeding Residual 675 Amount Wasted Other: Estimated Void Large Large Date of Last Bowel 10/14/17 Movement # Bowel Movements 1 Estimated Stool Amount Large # Voids 1 1 Albuterol (Ventolin 2.5 Mg/3 Ml Neb.Janessa*) 2.5 mg INH Q2H PRN PRN Reason: SOB/WHEEZING Last Admin: 10/13/18 04:18 Dose: 2.5 mg Chlorhexidine Gluconate (Peridex Mouth Wash 0.12%*) 15 ml SWISH SPIT QID [facility] Last Admin: 10/15/18 07:52 Dose: 15 ml Heparin Sodium (Porcine) (Heparin Vial(*)) 5,000 units SUBCUT Q12HR [facility] Last Admin: 10/15/18 07:53 Dose: 5,000 units Piperacillin Sod/Tazobactam (Sod 3.375 gm/ Sodium Chloride) 100 mls @ 25 mls/ hr IVPB Q8H [facility] Last Admin: 10/15/18 07:50 Dose: 25 mls/hr Azithromycin 500 mg/ Sodium (Chloride) 250 mls @ 250 mls/hr IVPB Q24HR@2000 [facility] Last Admin: 10/14/18 19:55 Dose: 250 mls/hr Vancomycin HCl 1,000 mg/ (Sodium Chloride) 250 mls @ 166.667 mls/hr IVPB Q8H [facility] Last Admin: 10/15/18 12:55 Dose: 166.667 mls/hr Propofol (Diprivan*) 100 mls @ 0 mls/hr IV .(Initial Rate) [facility]; Protocol Last Admin: 10/15/18 09:27 Dose: 8.4 mls/hr Dexmedetomidine HCl 400 mcg/ (Sodium Chloride) 100 mls @ 0 mls/hr IVPB Q8H [facility] ; Protocol Last Admin: 10/15/18 11:33 Dose: 17.6 mls/hr Lorazepam 200 mg/ Dextrose 200 mls @ 14 mls/hr IVPB Q14H [facility]; Protocol Last Admin: 10/15/18 06:42 Dose: 14 mls/hr Multivitamins 10 ml/ Folic Acid 1 mg/ Dextrose/Sodium Chloride 1,010.2 mls @ 100 mls/hr IVPB Q24H [facility] Last Admin: 10/15/18 08:04 Dose: 100 mls/hr Lactulose (Lactulose*) 30 ml NG TUBE TID [facility] Stop: 10/15/18 23:59 Last Admin: 10/15/18 07:54 Dose: 30 ml Ondansetron HCl (Zofran Inj*) 4 mg IV Q6H PRN PRN Reason: NAUSEA Last Admin: 10/12/18 05:19 Dose: 4 mg Oxazepam (Serax Cap*) 30 mg PO TID [facility] Last Admin: 10/15/18 09:46 Dose: 30 mg Pantoprazole Sodium (Protonix Iv*) 40 mg IV BID [facility] Last Admin: 10/15/18 07:52 Dose: 40 mg Pharmacy Consult (Zosyn Per Pharmacy*) 1 note FOLLOW UP .ZOSYN PER PHARMACY [facility] Pharmacy Consult (Vancomycin Per Pharmacy*) 1 note FOLLOW UP . PRN PRN Reason: PER PROTOCOL Thiamine HCl (Vitamin B-1 Tab*) 100 mg G TUBE DAILY [facility] Last Admin: 10/15/18 07:53 Dose: 100 mg Labs: Laboratory Results - last 24 hr 10/14/18 10/15/18 10/15/18 16:51 06:00 06:10 WBC RBC Hgb Hct MCV MCH MCHC RDW Plt Count MPV Neut % (Auto) Lymph % (Auto) [place] % (Auto) Eos % (Auto) Baso % (Auto) Absolute Neuts (auto) Absolute Lymphs (auto) Absolute Monos (auto) Absolute Eos (auto) Absolute Basos (auto) Absolute Nucleated RBC Nucleated RBC % INR (Anticoag Therapy) Sodium 139 Potassium TNP Chloride 112 H Carbon Dioxide 23 Anion Gap 4 BUN 9 Creatinine 0.94 Est GFR ( Amer) 100.5 Est GFR (Non-Af Amer) 83.0 BUN/Creatinine Ratio 9.6 Glucose 119 H Calcium 7.5 L Ionized Calcium 1.02 L Phosphorus Magnesium Total Bilirubin Direct Bilirubin Indirect Bilirubin AST ALT Alkaline Phosphatase Ammonia 71 H Total Protein Albumin Globulin Albumin/Globulin Ratio Vancomycin Trough 10/15/18 10/15/18 10/15/18 06:10 06:10 06:10 WBC 6.2 RBC 4.83 Hgb 15.3 Hct 46 MCV 95 H MCH 32 H MCHC 33 RDW 15 Plt Count 174 MPV 8.4 Neut % (Auto) 55.6 Lymph % (Auto) 25.9 [place] % (Auto) 17.0 Eos % (Auto) 0.8 Baso % (Auto) 0.7 Absolute Neuts (auto) 3.5 Absolute Lymphs (auto) 1.6 Absolute Monos (auto) 1.1 H Absolute Eos (auto) 0.1 Absolute Basos (auto) 0 Absolute Nucleated RBC 0 Nucleated RBC % 0.1 INR (Anticoag Therapy) 0.96 Sodium 142 Potassium 3.4 L Chloride 114 H Carbon Dioxide 22 Anion Gap 6 BUN 7 Creatinine 0.83 Est GFR ( Amer) 116.0 Est GFR (Non-Af Amer) 95.8 BUN/Creatinine Ratio 8.4 Glucose 118 H Calcium 7.9 L Ionized Calcium Phosphorus 3.1 Magnesium 1.8 L Total Bilirubin 0.60 Direct Bilirubin 0.20 H Indirect Bilirubin 0.4 AST 95 H ALT 191 H Alkaline Phosphatase 79 Ammonia Total Protein 5.7 L Albumin 3.0 L Globulin 2.7 Albumin/Globulin Ratio 1.1 Vancomycin Trough 10/15/18 11:33 WBC RBC Hgb Hct MCV MCH MCHC RDW Plt Count MPV Neut % (Auto) Lymph % (Auto) [place] % (Auto) Eos % (Auto) Baso % (Auto) Absolute Neuts (auto) Absolute Lymphs (auto) Absolute Monos (auto) Absolute Eos (auto) Absolute Basos (auto) Absolute Nucleated RBC Nucleated RBC % INR (Anticoag Therapy) Sodium Potassium Chloride Carbon Dioxide Anion Gap BUN Creatinine Est GFR ( Amer) Est GFR (Non-Af Amer) BUN/Creatinine Ratio Glucose Calcium Ionized Calcium Phosphorus Magnesium Total Bilirubin Direct Bilirubin Indirect Bilirubin AST ALT Alkaline Phosphatase Ammonia Total Protein Albumin Globulin Albumin/Globulin Ratio Vancomycin Trough 11.4 Studies: abd xray no obstruction or ileus Nutrition: cont tube feeds Impression: ETOH withdrawal Currently sedated ativan and precedex Propofol being titrated down started on oxazepam 30 tid and will con't to taper iv meds Banana Bag with multivit Hepatic encephalopathy elevation in ammonia likely due to alcohol hepatitis start lactulose and correct hypokalemia ammonia trending down Influenza Con't tamiful Pneumonia sputum cult pending con't zosyn and vanco Respiratory failure current on vent attempt weaning once more awake hypokalemia IV potassium replacememt GI Start tube feeds. protonix for prophylaxis DVT Prophylaxis Renal stable Plan: Critical Care Time:
[2018-10-15] MEDS: Azithromycin IV(*) 500 MG in NS 0.9% 250 ML* 250 ML IVPB SCH (20:00)
[2018-10-16] MEDS: Dexmedetomidine* 400 MCG in NS 0.9% 100 ML* 96 ML IVPB SCH ×8 (00:09→23:24)
[2018-10-16] MEDS ORDERED: hydrALAZINE IV* 20 MG/ML VIAL IV SLOW PU ONE (00:31)
[2018-10-16] MEDS: Propofol* 1000 MG (10 MG/ML 100 ml) @ Per Protocol (in ICU Pyxis) IV SCH (01:18)
[2018-10-16 05:25] LABS: Hematocrit 43 % (42-52); Hemoglobin 14.4 g/dl (14.0-18.0); Mean Corpuscular HGB Conc 34 g/dl (31-36); Mean Corpuscular Hemoglobin 32 pg (27-31); Mean Corpuscular Volume 95 fL (80-94); Mean Platelet Volume 8.7 fL (7.4-10.4); Platelet Count 221 10^3/ul (150-450); Red Blood Count 4.54 10^6/ul (4.00-5.40); Red Cell Distribution Width 15 % (10.5-15); White Blood Count 7.6 10^3/ul (3.5-10.8)
[2018-10-16] MEDS: ZOSYN 3.375 GM Q8H per EXTENDED INFUSION IVPB SCH ×6 (05:34→22:23)
[2018-10-16 05:39] LABS: Magnesium 1.9 mg/dL (1.9-2.7); Phosphorus 2.7 mg/dL (2.5-5.0)
[2018-10-16 05:46] LABS: BNP 119 pg/mL (<=100)
[2018-10-16 05:51] LABS: ABS Basophils 0.1 10^3/ul (0-0.2); ABS Eosinophils 0.1 10^3/ul (0-0.6); ABS Lymphocytes 1.6 10^3/ul (1.0-4.8); ABS Monocytes 1.2 10^3/ul (0-0.8); ABS Neutrophils 4.6 10^3/ul (1.5-7.7); ABS Nucleated RBC 0 10^3/ul; Eosinophil % 1.1 %; Large Platelets Present; Lymphocyte % 21.3 %; Nucleated Red Blood Cells % 0
[2018-10-16 08:25] LABS: BUN/Creatinine Ratio 5.6 (8-20); Calcium 8.1 mg/dL (8.6-10.3); EGFR Non-African American 88.4 (>60); Potassium 3.1 mmol/L (3.5-5.0)
[2018-10-16] MEDS: Pantoprazole IV* 40 MG IV SCH ×2 (09:25→22:32)
[2018-10-16] MEDS: Heparin VIAL(*) 5000 UNITS/ML VIAL (FIVE THOUSAND) SUBCUT SCH ×2 (09:35→22:31)
[2018-10-16] MEDS: Chlorhexidine MOUTHWASH 0.12%* 15 ML UDC SWISH SPIT SCH ×4 (09:36→22:40)
[2018-10-16] MEDS: Thiamine TAB* 100 MG TAB G TUBE SCH (09:36)
[2018-10-16] MEDS: MULTIPLE VITAMIN IVPB SCH (09:58)
[2018-10-16] MEDS: FOLIC ACID IVPB SCH (09:58)
[2018-10-16] MEDS: [UNRECOGNIZED DRUG - OTHER] IVPB SCH (09:58)
--- NOTE | 2018-10-16 09:59 | PN ---
Progress Note - Progress Note Date of Service: 10/13/18 Note: Due to Resp distress the patient was intubated started on MV Intubation Procedure Note Preprocedure given versed 2 mg and fentanyl 50mcq [place] scoped used to place size 8 ETT , with 1st attempt vocal cords seen no complication during the procedure tube placement verified with b/l bs and CO detector CXR requested.
[2018-10-16] MEDS: Oxazepam CAP* 10 MG PO SCH ×3 (10:22→22:44)
[2018-10-16] MEDS: KCL 20 MEQ/100 ML IVPREMIX* 20 MEQ/100 ML BAG IV SCH ×3 (10:22→13:54)
[2018-10-16] MEDS: LORazepam VIAL (for drip)* 200 MG in D5W 100 ML BAG* 100 ML IVPB SCH ×2 (10:23→12:34)
--- NOTE | 2018-10-16 11:31 | PN ---
Date of Service: 10/16/18 Critical Care Services: Over night con't to be agitated and requiring sedative. Vital Signs: Temp Pulse Resp BP SpO2 FiO2 97.7 F 88 24 132/98 94 30 10/16/18 11:01 10/16/18 11:01 10/16/18 10:23 10/16/18 11:01 10/16/18 11:01 10/16 04:00 Physical Exam: HEENT: MM pink and mosit Lungs: CTA b/l Cardiac: S1 s2 Abdomen: soft diminished bs Extremities: no edema Neuro: off sedation not moving his rt arm Fluid Balance (Past 24 Hours): I= O= Net Intake & Output 10/14/18 10/15/18 10/16/18 10/17/18 06:59 06:59 06:59 06:59 Intake Total 2805.4 4060.5 3888.7 90 Output Total 1400 1430 3370 440 Balance 1405.4 2630.5 518.7 -350 Weight 161 lb 6.054 oz 163 lb 12.855 oz 168 lb 13.985 oz Intake: IV Fluids 1411 2159 1041.7 ABX - AZITHROMYCIN 111 Banana bag 981 1124 740 NS (0.9%) 430 1035 132 abx 58.7 IVPB 1083 719 991 ABX - AZITHROMYCIN 1083 269 D5W 1/2 NS 20 meq KCL 189 NS (0.9%) 530 92 abx 630 Medicated IV 294.4 564.5 631 CC - Dexmedetomidine/ 185 292.5 379 Precedex CC - Propofol/Diprivan 109.4 272 252 IV Narcotic Infusion 17 388 433 Ativan 388 433 Versed 17 Oral 0 0 0 Tube Feeding 150 550 Tube Feeding Flush Amount 20 122 90 NG Tube Irrigate Amount 60 120 Output: Urine 400 100 Delgado 1000 1330 2320 440 Tube Feeding Residual 1050 Amount Wasted Other: Estimated Void Large Date of Last Bowel 10/14/17 Movement # Bowel Movements 1 Estimated Stool Amount Large # Voids 1 Labs: Laboratory Results - last 24 hr 10/15/18 10/15/18 10/16/18 11:33 18:11 00:24 WBC RBC Hgb Hct MCV MCH MCHC RDW Plt Count MPV Neut % (Auto) Lymph % (Auto) [place] % (Auto) Eos % (Auto) Baso % (Auto) Absolute Neuts (auto) Absolute Lymphs (auto) Absolute Monos (auto) Absolute Eos (auto) Absolute Basos (auto) Absolute Nucleated RBC Nucleated RBC % Large Platelets Sodium Potassium Chloride Carbon Dioxide Anion Gap BUN Creatinine Est GFR ( Amer) Est GFR (Non-Af Amer) BUN/Creatinine Ratio Glucose POC Glucose (mg/dL) 105 H 131 H Calcium Phosphorus Magnesium Ammonia B-Natriuretic Peptide Vancomycin Trough 11.4 10/16/18 10/16/18 10/16/18 05:10 05:10 05:10 WBC 7.6 RBC 4.54 Hgb 14.4 Hct 43 MCV 95 H MCH 32 H MCHC 34 RDW 15 Plt Count 221 MPV 8.7 Neut % (Auto) 60.8 Lymph % (Auto) 21.3 [place] % (Auto) 16.0 Eos % (Auto) 1.1 Baso % (Auto) 0.8 Absolute Neuts (auto) 4.6 Absolute Lymphs (auto) 1.6 Absolute Monos (auto) 1.2 H Absolute Eos (auto) 0.1 Absolute Basos (auto) 0.1 Absolute Nucleated RBC 0 Nucleated RBC % 0 Large Platelets Present Sodium 142 Potassium 3.1 L Chloride 112 H Carbon Dioxide 22 Anion Gap 8 BUN 5 L Creatinine 0.89 Est GFR ( Amer) 107.0 Est GFR (Non-Af Amer) 88.4 BUN/Creatinine Ratio 5.6 L Glucose 122 H POC Glucose (mg/dL) Calcium 8.1 L Phosphorus 2.7 Magnesium 1.9 Ammonia 55 H B-Natriuretic Peptide 119 H Vancomycin Trough Nutrition: tubs Impression: ETOH withdrawal with severe agitation Currently sedated ativan and precedex Propofol being titrated down started on oxazepam 30 tid and will con't to taper iv meds Banana Bag with multivit Hepatic encephalopathy elevation in ammonia likely due to alcohol hepatitis start lactulose and correct hypokalemia ammonia trending down Influenza Con't tamiful Pneumonia sputum cult pending con't zosyn and vanco Respiratory failure current on vent attempt weaning once more awake hypokalemia IV potassium replacememt GI Start tube feeds. protonix for prophylaxis DVT Prophylaxis Renal stable Neuro deficit with weakness of rt arm likely due to sedation CT scan of the head requested will consult neurology if deficit does not improve. Plan: Critical Care Time:
--- NOTE | 2018-10-16 16:32 | ECHO ---
Patient: PATO BUSBY [facility] Rec#: [id number] : 1960 Date: 10/16/2018 Age: 58y Height: 170 cm / 66.9 in Weight: 77 kg / 169.7 lbs Sex: M BSA: 1.88 Room#: [id number] Admit Date#: 10/09/2018 Type: Inpatient Referring: Cruz Gaspar Reading: Akiko Cruz MD Production Generalist: Stephany Birmingham RD Transthoracic Echocardiogram Indication: CVA BP: 168/74 HR: 91 Rhythm: NSR Findings History: Smoker, ETOH abuse. Patient was sedated, intubated, and mechanically ventilated during this study. Technical Comments: The study quality is fair. The study is technically limited due to poor parasternal windows. The study is technically limited due to patient being intubated and on a ventilator. Completed at 1600. Left Ventricle: The left ventricular chamber size is normal. There is no left ventricular hypertrophy. Left ventricular systolic function is at the lower limits of normal. The estimated ejection fraction is 50-55%. There is septal flattening of the interventricular septum consistent with right ventricular volume or pressure overload. Abnormal left ventricular diastolic function is observed. There is an E to A reversal in the mitral valve flow pattern suggestive of diastolic dysfunction. Left Atrium: The left atrial chamber size is normal. Right Ventricle: Moderator Band present. The right ventricle is mild to moderately dilated. The right ventricular global systolic function is mildly reduced. Right Atrium: The right atrium is mildly dilated. Interatrial septum appears intact without evidence of shunting. The bubble study is negative. A patent foramen ovale is not demonstrated with color Doppler and agitated contrast. Aortic Valve: The aortic valve is trileaflet. The aortic valve leaflets are mildly thickened. There is a trace of aortic regurgitation. There is no evidence of aortic stenosis. Mitral Valve: The mitral valve leaflets are mildly thickened. There is a trace of mitral regurgitation. There is no evidence of mitral stenosis. Tricuspid Valve: The tricuspid valve leaflets are normal. There is trace tricuspid regurgitation. Unable to estimate the right ventricular systolic pressure. There is no tricuspid stenosis. Pulmonic Valve: The pulmonic valve structure is not well visualized. There is no pulmonic stenosis. Pericardium: There is no significant pericardial effusion. A pericardial fat pad is visualized. Aorta: The ascending aorta is not well visualized. There is no dilatation of the aortic arch. The aortic root is normal in size. Pulmonary Artery: The main pulmonary artery appears normal. Venous: Unable to accurately comment on the size collapsibility of the IVC as the patient in known to be on mechanical ventilation. Contrast: Intravenous agitated saline contrast was used to assess intracardiac shunting. Images 83 and 84. Summary: There was not any prior study for comparison. Conclusions The left ventricular chamber size is normal. The estimated ejection fraction is 50-55%. There is septal flattening of the interventricular septum consistent with right ventricular volume or pressure overload. Abnormal left ventricular diastolic function is observed. There is an E to A reversal in the mitral valve flow pattern suggestive of diastolic dysfunction. The right atrium is mildly dilated. The bubble study is negative. A patent foramen ovale is not demonstrated with color Doppler and agitated contrast. There is a trace of aortic regurgitation. There is trace tricuspid regurgitation. Unable to estimate the right ventricular systolic pressure. Measurements Name Value Normal Range RVIDd (AP) 2D 3.1 cm (0.9 - 2.6) RVDdMajor (2D) 5.3 cm (2.2 - 4.4) RAd ISD 4CH 5.1 cm (3.4 - 4.9) RA (A4C)W 5 cm (2.9 - 4.6) IVSd (2D) 1 cm (0.6 - 1) LVPWd (2D) 1 cm (0.6 - 1) LVIDd (2D) 4.2 cm (3.6 - 5.4) LVIDs (2D) 3.6 cm - LV FS (2D) 14 % (25 - 45) Aortic Annulus 1.9 cm (1.4 - 2.6) Ao root diameter (2D) 3.3 cm (2.1 - 3.5) Ascending Ao 3.3 cm (2.1 - 3.4) Aortic arch 2.2 cm (1.8 - 3.4) LA dimension (AP) 2D 3.7 cm (2.3 - 3.8) LAd ISD 4CH 5.1 cm (2.9 - 5.3) LA ISD 4CH W 4.3 cm (2.5 - 4.5) Name Value Normal Range LA ESV BP (A/L) index 29 ml/m2 - Name Value Normal Range MV E-wave Vmax 0.8 m/sec - MV deceleration time 225 msec - MV A-wave Vmax 0.9 m/sec - MV E:A ratio 0.8 ratio - LV septal e' Vmax 0.1 m/sec - LV lateral e' Vmax 0.1 m/sec - LV E:e' septal ratio 8 ratio - LV E:e' lateral ratio 8 ratio - Name Value Normal Range AV Vmax 1.1 m/sec - AV VTI 23 cm - AV peak gradient 5 mmHg - AV mean gradient 3 mmHg - LVOT Vmax 1 m/sec - LVOT VTI 19 cm - LVOT peak gradient 4 mmHg - LVOT mean gradient 2 mmHg - BONNIE Vmax 0.7 m/sec - Name Value Normal Range PV Vmax 0.7 m/sec - PV peak gradient 2 mmHg -
[2018-10-16] MEDS: amLODIPine TAB* 5 MG PO SCH (18:01)
[2018-10-16] MEDS: cloNIDine 0.3 MG PATCH* 0.3 MG/24 HR 7 DAY PATCH TRANSDERM SCH (18:09)
[2018-10-16] MEDS: Azithromycin IV(*) 500 MG in NS 0.9% 250 ML* 250 ML IVPB SCH ×2 (22:23→22:34)
--- NOTE | 2018-10-16 23:03 | CONS ---
CONSULTATION REPORT: DATE OF CONSULT: 10/16/18 PATIENT OF: The ICU attending with no primary medical provider. HISTORY: I was asked to consult on Mr. Gill for new onset of right-sided weakness. He came in on 10/09/18 with shortness of breath, cough, and global weakness and he has had pneumonia. He has significant alcohol consumption, minimally 15 beers per day, and has been going through withdrawal and he has been significantly sedated. When the sedation has lightened this morning, he was noted to have significant right arm weakness. It is unclear to the ICU attending when this began. When I spoke to him this afternoon, he said it could easily be 24 hours of weakness. He also told me that the weakness this afternoon was significantly improved from what was noticed this morning. PAST MEDICAL HISTORY: Nephrolithiasis. PAST SURGICAL HISTORY: Ureteral stent placement and right foot surgery. MEDICATIONS: Include: 1. Multivitamins. 2. Ibuprofen p.r.n. ALLERGIES: He has no known drug allergies. FAMILY HISTORY: His mom is living and has no medical problems. Dad of complications from diabetes. SOCIAL HISTORY: He smokes 1 pack a day and drinks alcohol as above. 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 Has a long-term girlfriend. REVIEW OF SYSTEMS: He had some fevers and sweats when he came in and had some diarrhea. 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 When he initially presented, he had some mild rhabdomyolysis and hyponatremia. CURRENT MEDICATIONS IN HOSPITAL: 1. Albuterol 2.5 mg inhaled q.2 hours p.r.n. wheezing. 2. Azithromycin 500 mg q.24 hours. 3. Dexmedetomidine 400 mcg q.5 hours. 4. Lorazepam 200 mg per hour IV push q.48 hours. 5. Zofran 4 mg IV q.6 hours p.r.n. nausea. 6. Protonix 40 mg b.i.d. 7. Piperacillin 3.375 g q.8 hours. 8. Propofol drip. PHYSICAL EXAM: Vital Signs: Temperature 99.3, pulse 89, respirations 15, blood pressure 200/101. He was sedated but would arouse and move and have facial expression. He had clear right Paul's palsy, but would open both eyes. Red reflex was present bilaterally. Neck appeared supple but he was sedated. He moved both the right and left extremities. His legs, he moved symmetrically. His left arm he moved more than his right arm but he was able to move his right arm now which apparently represents improvement. He was able to resist when I moved his arm in one direction, he would push against me; for instance, he would activate his biceps when I pushed his arm down, and he would activate his triceps when I pushed his forearm up with at least 5-/5 strength on the right. Reflexes were trace to 1 symmetrically. He reacted to noxious stimuli both sides. Chest: Clear. Cardiovascular: Regular rate and rhythm. Abdomen: Soft. DIAGNOSTIC STUDIES/LAB DATA: His brain CT did not show any evidence of bleed or acute stroke. There was some mild sinus disease. Labs include white count 7.6, hematocrit 43, platelets 221,000. Normal INR and PTT 34. Blood gas from ; pH 7.39, pCO2 of 31, pO2 of 157. Ammonia was 55, BNP was 119. BMP from today had a potassium 3.1, BUN 5, creatinine 0.89, glucose 122, calcium 8.1. He was positive for influenza A. IMPRESSION: Rony has focal neurological deficit that has appeared when his sedation has lightened and it was still present, but improved. It is possible that this could be a stroke and a CT scan may not pick it up at this point. He should be on a rectal aspirin, fasting lipids should be checked, as well as carotid Dopplers and echo. When he is stable the next day or so, it would be reasonable to check an MRI scan to see if we can document the potential of stroke. Thank you for sharing his case. [id number]/[facility] #: [id number] [facility]ICLesley
[2018-10-17] MEDS ORDERED: hydrALAZINE IV* 20 MG/ML VIAL IV SLOW PU ONE (03:10)
[2018-10-17] MEDS: Dexmedetomidine* 400 MCG in NS 0.9% 100 ML* 96 ML IVPB SCH ×4 (04:06→14:55)
[2018-10-17] MEDS: LORazepam VIAL (for drip)* 200 MG in D5W 100 ML BAG* 100 ML IVPB SCH ×2 (04:09→22:47)
[2018-10-17] MEDS: ZOSYN 3.375 GM Q8H per EXTENDED INFUSION IVPB SCH ×6 (06:22→22:54)
[2018-10-17] MEDS: amLODIPine TAB* 5 MG PO SCH (08:02)
[2018-10-17] MEDS: Heparin VIAL(*) 5000 UNITS/ML VIAL (FIVE THOUSAND) SUBCUT SCH ×2 (08:02→21:29)
[2018-10-17] MEDS: Oxazepam CAP* 10 MG PO SCH ×3 (08:02→21:28)
[2018-10-17] MEDS: Pantoprazole IV* 40 MG IV SCH ×2 (08:03→21:28)
[2018-10-17] MEDS: Chlorhexidine MOUTHWASH 0.12%* 15 ML UDC SWISH SPIT SCH ×4 (08:03→21:30)
[2018-10-17] MEDS: Thiamine TAB* 100 MG TAB G TUBE SCH (08:04)
[2018-10-17] MEDS: MULTIPLE VITAMIN IVPB SCH (10:03)
[2018-10-17] MEDS: FOLIC ACID IVPB SCH (10:03)
[2018-10-17] MEDS: [UNRECOGNIZED DRUG - OTHER] IVPB SCH (10:03)
--- NOTE | 2018-10-17 11:36 | PN ---
Critical Care Services: overnight started having BM Vital Signs: Temp Pulse Resp BP SpO2 FiO2 98.4 F 93 29 191/93 94 30 10/17/18 06:02 10/17/18 06:02 10/17/18 06:00 10/17/18 06:02 10/17/18 06:02 10/17 04:00 Physical Exam: HEENT: MM pink and moist Lungs: good airentry Cardiac: s1 s2 rrr Abdomen: soft NT ND +BS Extremities: No edema Neuro: moving all ext with propofol off Fluid Balance (Past 24 Hours): I= O= Net Intake & Output 10/15/18 10/16/18 10/17/18 10/18/18 06:59 06:59 06:59 06:59 Intake Total 4060.5 3888.7 3277.7 Output Total 1430 3370 3110 Balance 2630.5 518.7 167.7 Weight 163 lb 12.855 oz 168 lb 13.985 oz 166 lb 7.184 oz Intake: IV Fluids 2159 1041.7 1393.7 ABX - AZITHROMYCIN 111 Banana bag 4945 574 0797 NS (0.9%) 1035 132 abx 58.7 149.7 IVPB 719 991 570 ABX - AZITHROMYCIN 269 Banana bag 110 D5W 1/2 NS 20 meq KCL 189 NS (0.9%) 530 92 100 abx 630 360 Medicated IV 564.5 631 464 CC - Dexmedetomidine/ 292.5 379 431 Precedex CC - Propofol/Diprivan 272 252 33 IV Narcotic Infusion 388 433 Ativan 388 433 Oral 0 0 Tube Feeding 150 550 540 Tube Feeding Flush Amount 20 122 310 NG Tube Irrigate Amount 60 120 Output: Urine 100 Delgado 1330 2320 3110 Tube Feeding Residual 1050 Amount Wasted Other: Date of Last Bowel 10/14/17 Movement # Bowel Movements 1 Estimated Stool Amount Large Albuterol (Ventolin 2.5 Mg/3 Ml Neb.Janessa*) 2.5 mg INH Q2H PRN PRN Reason: SOB/WHEEZING Last Admin: 10/13/18 04:18 Dose: 2.5 mg Amlodipine Besylate (Norvasc Tab*) 10 mg PO DAILY [facility] Last Admin: 10/17/18 08:02 Dose: 10 mg Chlorhexidine Gluconate (Peridex Mouth Wash 0.12%*) 15 ml SWISH SPIT QID [facility] Last Admin: 10/17/18 08:03 Dose: 15 ml Clonidine HCl (Xlxuqjoa-Rxi-5 0.3 Mg Patch*) 0.3 mg TRANSDERM Q7D [facility] Last Admin: 10/16/18 18:09 Dose: 0.3 mg Heparin Sodium (Porcine) (Heparin Vial(*)) 5,000 units SUBCUT Q12HR [facility] Last Admin: 10/17/18 08:02 Dose: 5,000 units Heparin Sodium (Porcine) (Heparin Flush Picc/Ml/Cvc(*)) 1 - 3 ml FLUSH 0600, 1800 [facility]; Protocol Last Admin: 10/17/18 04:28 Dose: Not Given Piperacillin Sod/Tazobactam (Sod 3.375 gm/ Sodium Chloride) 100 mls @ 25 mls/ hr IVPB Q8H [facility] Last Admin: 10/17/18 06:22 Dose: 25 mls/hr Azithromycin 500 mg/ Sodium (Chloride) 250 mls @ 250 mls/hr IVPB Q24HR@2000 [facility] Last Admin: 10/16/18 22:23 Dose: 250 mls/hr Propofol (Diprivan*) 100 mls @ 0 mls/hr IV .(Initial Rate) [facility]; Protocol Last Admin: 10/16/18 01:18 Dose: 4.2 mls/hr Lorazepam 200 mg/ Dextrose 200 mls @ 14 mls/hr IVPB Q14H [facility]; Protocol Last Admin: 10/17/18 04:09 Dose: 14 mls/hr Multivitamins 10 ml/ Folic Acid 1 mg/ Dextrose/Sodium Chloride 1,010.2 mls @ 100 mls/hr IVPB Q24H [facility] Last Admin: 10/17/18 10:03 Dose: 100 mls/hr Dexmedetomidine HCl 400 mcg/ (Sodium Chloride) 100 mls @ 13 mls/hr IVPB Q7H [facility] ; Protocol Last Admin: 10/17/18 10:10 Dose: 21 mls/hr Ondansetron HCl (Zofran Inj*) 4 mg IV Q6H PRN PRN Reason: NAUSEA Last Admin: 10/12/18 05:19 Dose: 4 mg Oxazepam (Serax Cap*) 30 mg PO TID [facility] Last Admin: 10/17/18 08:02 Dose: 30 mg Pantoprazole Sodium (Protonix Iv*) 40 mg IV BID [facility] Last Admin: 10/17/18 08:03 Dose: 40 mg Pharmacy Consult (Zosyn Per Pharmacy*) 1 note FOLLOW UP .ZOSYN PER PHARMACY [facility] Thiamine HCl (Vitamin B-1 Tab*) 100 mg G TUBE DAILY [facility] Last Admin: 10/17/18 08:04 Dose: 100 mg Labs: Laboratory Results - last 24 hr 10/16/18 10/16/18 10/16/18 06:11 12:00 17:59 POC Glucose (mg/dL) 122 H 130 H 160 H 10/17/18 10/17/18 01:34 06:20 POC Glucose (mg/dL) 91 127 H Nutrition: tube feeds Impression: ETOH withdrawal with severe agitation Currently sedated ativan and precedex Propofol being titrated down started on oxazepam 30 tid and will con't to taper iv meds Banana Bag with multivit Hepatic encephalopathy improving with lactulose Influenza Con't tamiful Pneumonia sputum cult pending con't zosyn and vanco Respiratory failure current on vent attempt weaning once more awake GI Start tube feeds. protonix for prophylaxis DVT Prophylaxis Renal stable Neuro moving all ext Plan: Critical Care Time:
[2018-10-17 13:58] LABS: Hematocrit 41 % (42-52); Hemoglobin 13.8 g/dl (14.0-18.0); Mean Corpuscular HGB Conc 34 g/dl (31-36); Mean Corpuscular Hemoglobin 31 pg (27-31); Mean Corpuscular Volume 93 fL (80-94); Mean Platelet Volume 8.8 fL (7.4-10.4); Platelet Count 308 10^3/ul (150-450); Red Blood Count 4.41 10^6/ul (4.00-5.40); Red Cell Distribution Width 14 % (10.5-15); White Blood Count 9.2 10^3/ul (3.5-10.8)
[2018-10-17 14:16] LABS: BUN/Creatinine Ratio 6.8 (8-20); EGFR African American 134.5 (>60); EGFR Non-African American 111.1 (>60); Potassium 2.8 mmol/L (3.5-5.0)
[2018-10-17 14:25] LABS: ABS Basophils 0.1 10^3/ul (0-0.2); ABS Eosinophils 0.1 10^3/ul (0-0.6); ABS Lymphocytes 1.5 10^3/ul (1.0-4.8); ABS Monocytes 1.7 10^3/ul (0-0.8); ABS Neutrophils 5.9 10^3/ul (1.5-7.7); ABS Nucleated RBC 0 10^3/ul; Eosinophil % 0.7 %; Lymphocyte % 16.2 %; Nucleated Red Blood Cells % 0
[2018-10-17] MEDS ORDERED: KCL 20 MEQ/100 ML IVPREMIX* 20 MEQ/100 ML BAG ONE (15:12)
[2018-10-17] MEDS: Aspirin TAB* 325 MG PO SCH (17:43)
[2018-10-17] MEDS: KCL 20 MEQ/100 ML IVPREMIX* 20 MEQ/100 ML BAG IV SCH ×3 (17:43→21:28)
[2018-10-17] MEDS: NS 0.9% IVPB SCH (18:45)
[2018-10-17] MEDS: DEXMEDETOMIDINE IVPB SCH (18:45)
--- NOTE | 2018-10-17 21:19 | PN ---
NEUROLOGICAL FOLLOWUP: DATE OF SERVICE: 10/17/18 PATIENT OF: Dr. Gaspar. HISTORY: This is a neurological followup of this 58-year-old man, who had some right-sided weakness yesterday. Nurses did not notice any deficit. He is still sedated but when he gets rolled over, he fully wakes up and moves all extremities with full power. They are beginning to wean his sedation. MEDICATIONS: His medicines currently included: 1. His thiamine 100 mg per G-tube. 2. His piperacillin as before. 3. Zosyn. 4. Protonix. 5. Lorazepam at a decreasing dose. 6. His dexmedetomidine. 7. His Catapres patch. 8. Norvasc 10 mg daily. PHYSICAL EXAMINATION: Temperature 98.4, pulse 93, respirations 27, blood pressure 191/93. He is intubated and sedated. He is arousable but quickly closes his eyes. He resists movement on both sides with good strength, at least 4+/5, but he did not cooperate with the formal strength testing with me. Chest : Clear. Cardiovascular: Regular rate and rhythm. DIAGNOSTIC STUDIES: His carotid Doppler showed no significant carotid stenosis. His transthoracic echo showed normal ejection fraction with negative bubble study. Septal flattening of the interventricular septum consistent with mild right ventricular volume or pressure overload. ASSESSMENT AND PLAN: He should be on a rectal aspirin, I will tell Dr. Gaspar of this, as well as checking his fasting lipids. Dr. Bernstein is nylon winder after 5 if he has further neurological problems. Thank you for sharing his case. [id number]/[facility] #: [id number] [facility]ENTERLesley
[2018-10-17] MEDS: Azithromycin IV(*) 500 MG in NS 0.9% 250 ML* 250 ML IVPB SCH (21:28)
[2018-10-17] MEDS ORDERED: Metoprolol Tartrate IV* 1 MG/ML 5 ML VIAL ONE (23:34)
[2018-10-17] MEDS: Metoprolol Tartrate IV* 1 MG/ML 5 ML VIAL IV PRN (23:39)
[2018-10-18] MEDS: hydrALAZINE IV* 20 MG/ML VIAL IV SLOW PU PRN (01:16)
[2018-10-18] MEDS: DEXMEDETOMIDINE IVPB SCH ×3 (04:12→21:08)
[2018-10-18] MEDS: NS 0.9% IVPB SCH ×3 (04:12→21:08)
[2018-10-18] MEDS: LORazepam VIAL (for drip)* 200 MG in D5W 100 ML BAG* 100 ML IVPB SCH (04:13)
[2018-10-18 06:44] LABS: HDL Cholesterol 41.5 mg/dL
[2018-10-18] MEDS: ZOSYN 3.375 GM Q8H per EXTENDED INFUSION IVPB SCH ×6 (06:46→21:10)
[2018-10-18 07:50] LABS: BUN/Creatinine Ratio 8.5 (8-20); Calcium 8.2 mg/dL (8.6-10.3); EGFR African American 138.9 (>60); EGFR Non-African American 114.8 (>60); Potassium 3.4 mmol/L (3.5-5.0)
[2018-10-18] MEDS: Aspirin TAB* 325 MG PO SCH (08:41)
[2018-10-18] MEDS: amLODIPine TAB* 5 MG PO SCH (08:41)
[2018-10-18] MEDS: Oxazepam CAP* 10 MG PO SCH ×3 (08:41→21:09)
[2018-10-18] MEDS: Thiamine TAB* 100 MG TAB G TUBE SCH (08:41)
[2018-10-18] MEDS: Heparin VIAL(*) 5000 UNITS/ML VIAL (FIVE THOUSAND) SUBCUT SCH ×2 (08:42→21:10)
[2018-10-18] MEDS: Pantoprazole IV* 40 MG IV SCH ×2 (08:42→21:09)
[2018-10-18] MEDS: Chlorhexidine MOUTHWASH 0.12%* 15 ML UDC SWISH SPIT SCH ×4 (08:43→21:09)
--- NOTE | 2018-10-18 08:51 | PN ---
Date of Service: 10/18/18 Critical Care Services: overnight no significant change Vital Signs: Temp Pulse Resp BP SpO2 FiO2 99.3 F 80 24 182/96 93 30 10/18/18 06:00 10/18/18 06:00 10/18/18 06:00 10/18/18 06:00 10/18/18 06:00 10/18 04:52 Physical Exam: Gen: middle age male HEENT: mm pink and moist Lungs: good airentry Cardiac: s 1 s2 Abdomen: soft NT ND Extremities: minimal edema Neuro: wakes up off sedation Fluid Balance (Past 24 Hours): I= O= Net Intake & Output 10/16/18 10/17/18 10/18/18 10/19/18 06:59 06:59 06:59 06:59 Intake Total 3888.7 3277.7 3180 Output Total 3370 3110 3960 Balance 518.7 167.7 -780 Weight 168 lb 13.985 oz 166 lb 7.184 oz 162 lb 0.636 oz Intake: IV Fluids 1041.7 1393.7 1073 ABX - AZITHROMYCIN 111 Banana bag 740 1244 979 NS (0.9%) 132 36 abx 58.7 149.7 58 IVPB 991 570 572 ABX - AZITHROMYCIN 269 Banana bag 110 NS (0.9%) 92 100 117 abx 630 360 455 Medicated IV 631 464 763 CC - Dexmedetomidine/ 379 431 541 Precedex CC - Propofol/Diprivan 252 33 potassium 222 IV Narcotic Infusion 433 Ativan 433 Oral 0 Tube Feeding 550 540 672 Tube Feeding Flush Amount 122 310 100 NG Tube Irrigate Amount 120 Output: Delgado 2320 3110 3960 Tube Feeding Residual 1050 0 Amount Wasted Labs: Laboratory Results - last 24 hr 10/17/18 10/17/18 10/17/18 12:14 13:30 13:30 WBC 9.2 RBC 4.41 Hgb 13.8 L Hct 41 L MCV 93 MCH 31 MCHC 34 RDW 14 Plt Count 308 MPV 8.8 Neut % (Auto) 64.0 Lymph % (Auto) 16.2 [place] % (Auto) 18.3 Eos % (Auto) 0.7 Baso % (Auto) 0.8 Absolute Neuts (auto) 5.9 Absolute Lymphs (auto) 1.5 Absolute Monos (auto) 1.7 H Absolute Eos (auto) 0.1 Absolute Basos (auto) 0.1 Absolute Nucleated RBC 0 Nucleated RBC % 0 Sodium 139 Potassium 2.8 L Chloride 105 Carbon Dioxide 28 Anion Gap 6 BUN 5 L Creatinine 0.73 Est GFR ( Amer) 134.5 Est GFR (Non-Af Amer) 111.1 BUN/Creatinine Ratio 6.8 L Glucose 166 H POC Glucose (mg/dL) 151 H Calcium 8.0 L Triglycerides Cholesterol LDL Cholesterol HDL Cholesterol 10/17/18 10/17/18 10/18/18 18:23 23:38 04:00 WBC RBC Hgb Hct MCV MCH MCHC RDW Plt Count MPV Neut % (Auto) Lymph % (Auto) [place] % (Auto) Eos % (Auto) Baso % (Auto) Absolute Neuts (auto) Absolute Lymphs (auto) Absolute Monos (auto) Absolute Eos (auto) Absolute Basos (auto) Absolute Nucleated RBC Nucleated RBC % Sodium Potassium Chloride Carbon Dioxide Anion Gap BUN Creatinine Est GFR ( Amer) Est GFR (Non-Af Amer) BUN/Creatinine Ratio Glucose POC Glucose (mg/dL) 129 H 128 H 121 H Calcium Triglycerides Cholesterol LDL Cholesterol HDL Cholesterol 10/18/18 06:20 WBC RBC Hgb Hct MCV MCH MCHC RDW Plt Count MPV Neut % (Auto) Lymph % (Auto) [place] % (Auto) Eos % (Auto) Baso % (Auto) Absolute Neuts (auto) Absolute Lymphs (auto) Absolute Monos (auto) Absolute Eos (auto) Absolute Basos (auto) Absolute Nucleated RBC Nucleated RBC % Sodium 138 Potassium 3.4 L Chloride 106 Carbon Dioxide 24 Anion Gap 8 BUN 6 Creatinine 0.71 Est GFR ( Amer) 138.9 Est GFR (Non-Af Amer) 114.8 BUN/Creatinine Ratio 8.5 Glucose 127 H POC Glucose (mg/dL) Calcium 8.2 L Triglycerides 83 Cholesterol 92 LDL Cholesterol 34 HDL Cholesterol 41.5 Impression: ETOH withdrawal with severe agitation Currently sedated ativan and precedex Propofol being titrated down started on oxazepam 30 tid and will con't to taper iv meds Banana Bag with multivit Hepatic encephalopathy improving Influenza Con't tamiful Pneumonia con't zosyn Respiratory failure current on vent attempt weaning once more awake GI Start tube feeds. protonix for prophylaxis Having diarrhea likely due to lactulose, which was D/C DVT Prophylaxis Renal stable Neuro moving all ext HTN on clonidine, norvac and will start ameena inhibitor hydralazine and metoprolol PRN Plan: Critical Care Time:
[2018-10-18] MEDS: KCL 20 MEQ/100 ML IVPREMIX* 20 MEQ/100 ML BAG IV SCH ×3 (10:27→15:01)
[2018-10-18] MEDS: MULTIPLE VITAMIN IVPB SCH (11:08)
[2018-10-18] MEDS: FOLIC ACID IVPB SCH (11:08)
[2018-10-18] MEDS: [UNRECOGNIZED DRUG - OTHER] IVPB SCH (11:08)
[2018-10-18] MEDS: Lisinopril TAB* 10 MG PO SCH (14:25)
[2018-10-18] MEDS ORDERED: LORazepam VIAL (for drip)* 200 MG in D5W 100 ML BAG* 100 ML IVPB SCH (15:50)
[2018-10-18 18:55] LABS: BUN/Creatinine Ratio 7.5 (8-20); Calcium 8.2 mg/dL (8.6-10.3); Potassium 3.7 mmol/L (3.5-5.0)
[2018-10-19] MEDS: LORazepam VIAL (for drip)* 100 MG in D5W 50 ML BAG* 50 ML IVPB SCH ×2 (05:03→15:49)
[2018-10-19] MEDS: DEXMEDETOMIDINE IVPB SCH ×3 (05:16→22:01)
[2018-10-19] MEDS: NS 0.9% IVPB SCH ×3 (05:16→22:01)
[2018-10-19] MEDS: ZOSYN 3.375 GM Q8H per EXTENDED INFUSION IVPB SCH ×6 (05:17→21:02)
[2018-10-19 05:22] LABS: Hematocrit 40 % (42-52); Hemoglobin 13.8 g/dl (14.0-18.0); Mean Corpuscular HGB Conc 34 g/dl (31-36); Mean Corpuscular Hemoglobin 32 pg (27-31); Mean Corpuscular Volume 93 fL (80-94); Mean Platelet Volume 8.5 fL (7.4-10.4); Platelet Count 363 10^3/ul (150-450); Red Blood Count 4.34 10^6/ul (4.00-5.40); Red Cell Distribution Width 15 % (10.5-15); White Blood Count 9.3 10^3/ul (3.5-10.8)
[2018-10-19 05:23] LABS: ABS Basophils 0.2 10^3/ul (0-0.2); ABS Eosinophils 0.1 10^3/ul (0-0.6); ABS Lymphocytes 2.3 10^3/ul (1.0-4.8); ABS Monocytes 1.9 10^3/ul (0-0.8); ABS Neutrophils 4.8 10^3/ul (1.5-7.7); ABS Nucleated RBC 0 10^3/ul; Eosinophil % 0.9 %; Lymphocyte % 24.3 %; Nucleated Red Blood Cells % 0.1
[2018-10-19 05:42] LABS: Albumin/Globulin Ratio 0.9 (1-3); BUN/Creatinine Ratio 10.3 (8-20); Calcium 8.5 mg/dL (8.6-10.3); EGFR Non-African American 120.6 (>60); Globulin 3.4 g/dL (2-4); Potassium 3.5 mmol/L (3.5-5.0); Total Bilirubin 0.6 mg/dL (0.2-1.0); Total Protein 6.4 g/dL (6.4-8.9)
[2018-10-19] MEDS: Aspirin TAB* 325 MG PO SCH (08:09)
[2018-10-19] MEDS: Lisinopril TAB* 10 MG PO SCH ×3 (08:09→08:43)
[2018-10-19] MEDS: Oxazepam CAP* 10 MG PO SCH ×3 (08:09→22:01)
[2018-10-19] MEDS: Thiamine TAB* 100 MG TAB G TUBE SCH (08:09)
[2018-10-19] MEDS: amLODIPine TAB* 5 MG PO SCH (08:09)
[2018-10-19] MEDS: Pantoprazole IV* 40 MG IV SCH ×2 (08:20→20:53)
[2018-10-19] MEDS: Heparin VIAL(*) 5000 UNITS/ML VIAL (FIVE THOUSAND) SUBCUT SCH ×2 (08:22→20:53)
[2018-10-19] MEDS: Chlorhexidine MOUTHWASH 0.12%* 15 ML UDC SWISH SPIT SCH ×4 (08:23→20:53)
[2018-10-19] MEDS: hydrALAZINE IV* 20 MG/ML VIAL IV SLOW PU PRN ×2 (08:41→22:15)
--- NOTE | 2018-10-19 09:15 | PN ---
Date of Service: 10/19/18 Critical Care Services: overnight no sig change con't to titrated down the sedation off the ativan in am Vital Signs: Temp Pulse Resp BP SpO2 FiO2 98.8 F 86 27 180/96 93 30 10/19/18 07:17 10/19/18 07:17 10/19/18 07:00 10/19/18 07:17 10/19/18 07:17 10/19 04:00 Physical Exam: Gen: no acute distress HEENT: pink and moist Lungs: CTA Cardiac: s1 s2 rrr Abdomen: abd soft Extremities: mild edema Neuro: sedated opens eyes to voice Fluid Balance (Past 24 Hours): I= O= Net Intake & Output 10/17/18 10/18/18 10/19/18 10/20/18 06:59 06:59 06:59 06:59 Intake Total 3277.7 3180 2961 Output Total 3110 3960 2775 325 Balance 167.7 -780 186 -325 Weight 166 lb 7.184 oz 162 lb 0.636 oz 162 lb 0.636 oz Intake: IV Fluids 1393.7 1073 1145 Banana bag 8418 321 4581 NS (0.9%) 36 40 abx 149.7 58 52 IVPB 570 572 578 Banana bag 110 240 NS (0.9%) 100 117 120 abx 360 455 218 Medicated IV 464 763 623 CC - Dexmedetomidine/ 431 541 623 Precedex CC - Propofol/Diprivan 33 potassium 222 Tube Feeding 540 672 445 Tube Feeding Flush Amount 310 100 170 Output: Delgado 3110 3960 2285 325 Tube Feeding Residual 0 490 Amount Wasted Albuterol (Ventolin 2.5 Mg/3 Ml Neb.Janessa*) 2.5 mg INH Q2H PRN PRN Reason: SOB/WHEEZING Last Admin: 10/13/18 04:18 Dose: 2.5 mg Amlodipine Besylate (Norvasc Tab*) 10 mg PO DAILY [facility] Last Admin: 10/19/18 08:09 Dose: 10 mg Aspirin (Aspirin Tab*) 325 mg PO DAILY [facility] Last Admin: 10/19/18 08:09 Dose: 325 mg Chlorhexidine Gluconate (Peridex Mouth Wash 0.12%*) 15 ml SWISH SPIT QID [facility] Last Admin: 10/19/18 08:23 Dose: 15 ml Clonidine HCl (Vwifmgdk-Hwl-5 0.3 Mg Patch*) 0.3 mg TRANSDERM Q7D [facility] Last Admin: 10/16/18 18:09 Dose: 0.3 mg Heparin Sodium (Porcine) (Heparin Vial(*)) 5,000 units SUBCUT Q12HR [facility] Last Admin: 10/19/18 08:22 Dose: 5,000 units Heparin Sodium (Porcine) (Heparin Flush Picc/Ml/Cvc(*)) 1 - 3 ml FLUSH 0600, 1800 [facility]; Protocol Last Admin: 10/19/18 07:02 Dose: Not Given Hydralazine HCl (Apresoline Iv*) 10 mg IV SLOW PU Q6H PRN PRN Reason: SBP>170 Last Admin: 10/19/18 08:41 Dose: 10 mg Piperacillin Sod/Tazobactam (Sod 3.375 gm/ Sodium Chloride) 100 mls @ 25 mls/ hr IVPB Q8H [facility] Last Admin: 10/19/18 05:17 Dose: 25 mls/hr Propofol (Diprivan*) 100 mls @ 0 mls/hr IV .(Initial Rate) [facility]; Protocol Last Admin: 10/16/18 01:18 Dose: 4.2 mls/hr Multivitamins 10 ml/ Folic Acid 1 mg/ Dextrose/Sodium Chloride 1,010.2 mls @ 100 mls/hr IVPB Q24H [facility] Last Admin: 10/18/18 11:08 Dose: 100 mls/hr Dexmedetomidine HCl 800 mcg/ (Sodium Chloride) 200 mls @ 26 mls/hr IVPB Q8H [facility] ; Protocol Last Admin: 10/19/18 05:16 Dose: 25.9 mls/hr Lorazepam 100 mg/ Dextrose 100 mls @ 0 mls/hr IVPB Q20H [facility]; Protocol Last Admin: 10/19/18 05:03 Dose: Not Given Lisinopril (Prinivil Tab*) 20 mg PO DAILY [facility] Last Admin: 10/19/18 08:43 Dose: Not Given Metoprolol Tartrate (Lopressor Iv*) 5 mg IV Q6H PRN PRN Reason: SBP>170 Last Admin: 10/17/18 23:39 Dose: 5 mg Ondansetron HCl (Zofran Inj*) 4 mg IV Q6H PRN PRN Reason: NAUSEA Last Admin: 10/12/18 05:19 Dose: 4 mg Oxazepam (Serax Cap*) 30 mg PO TID [facility] Last Admin: 10/19/18 08:09 Dose: 30 mg Pantoprazole Sodium (Protonix Iv*) 40 mg IV BID [facility] Last Admin: 10/19/18 08:20 Dose: 40 mg Pharmacy Consult (Zosyn Per Pharmacy*) 1 note FOLLOW UP .ZOSYN PER PHARMACY [facility] Thiamine HCl (Vitamin B-1 Tab*) 100 mg G TUBE DAILY [facility] Last Admin: 10/19/18 08:09 Dose: 100 mg Labs: Laboratory Results - last 24 hr 10/18/18 10/18/18 10/18/18 12:57 18:20 23:44 WBC RBC Hgb Hct MCV MCH MCHC RDW Plt Count MPV Neut % (Auto) Lymph % (Auto) [place] % (Auto) Eos % (Auto) Baso % (Auto) Absolute Neuts (auto) Absolute Lymphs (auto) Absolute Monos (auto) Absolute Eos (auto) Absolute Basos (auto) Absolute Nucleated RBC Nucleated RBC % Sodium 137 Potassium 3.7 Chloride 107 Carbon Dioxide 25 Anion Gap 5 BUN 6 Creatinine 0.80 Est GFR ( Amer) 121.0 Est GFR (Non-Af Amer) 100.0 BUN/Creatinine Ratio 7.5 L Glucose 174 H POC Glucose (mg/dL) 137 H 147 H Calcium 8.2 L Total Bilirubin AST ALT Alkaline Phosphatase Total Protein Albumin Globulin Albumin/Globulin Ratio 10/19/18 10/19/18 05:10 05:10 WBC 9.3 RBC 4.34 Hgb 13.8 L Hct 40 L MCV 93 MCH 32 H MCHC 34 RDW 15 Plt Count 363 MPV 8.5 Neut % (Auto) 51.7 Lymph % (Auto) 24.3 [place] % (Auto) 20.7 Eos % (Auto) 0.9 Baso % (Auto) 2.4 Absolute Neuts (auto) 4.8 Absolute Lymphs (auto) 2.3 Absolute Monos (auto) 1.9 H Absolute Eos (auto) 0.1 Absolute Basos (auto) 0.2 Absolute Nucleated RBC 0 Nucleated RBC % 0.1 Sodium 138 Potassium 3.5 Chloride 105 Carbon Dioxide 27 Anion Gap 6 BUN 7 Creatinine 0.68 Est GFR ( Amer) 146.0 Est GFR (Non-Af Amer) 120.6 BUN/Creatinine Ratio 10.3 Glucose 135 H POC Glucose (mg/dL) Calcium 8.5 L Total Bilirubin 0.60 AST 49 H ALT 66 H Alkaline Phosphatase 117 H Total Protein 6.4 Albumin 3.0 L Globulin 3.4 Albumin/Globulin Ratio 0.9 L Studies: carotid dopplers as requested by neuro no sig stenosis Nutrition: tube feeds Impression: ETOH withdrawal with severe agitation overall improving with less requirements for sedation Currently sedated with precedex Propofol and ativan being titrated down started on oxazepam 30 tid and will con't to taper iv meds Banana Bag with multivit Hepatic encephalopathy improving Influenza Con't tamiful Pneumonia con't zosyn Respiratory failure current on vent attempt weaning once more awake GI Start tube feeds. protonix for prophylaxis Having diarrhea likely due to lactulose, which was D/C DVT Prophylaxis Renal stable Neuro moving all ext HTN on clonidine, norvac and increase lisinopril 20 daily hydralazine and metoprolol PRN con't to titrated bp meds Hypokalemia replace K+ Plan: Critical Care Time:
[2018-10-19 09:34] LABS: Magnesium 1.9 mg/dL (1.9-2.7)
[2018-10-19] MEDS: KCL 20 MEQ/100 ML IVPREMIX* 20 MEQ/100 ML BAG IV SCH ×5 (10:04→22:39)
[2018-10-19] MEDS: MULTIPLE VITAMIN IVPB SCH (10:46)
[2018-10-19] MEDS: FOLIC ACID IVPB SCH (10:46)
[2018-10-19] MEDS: [UNRECOGNIZED DRUG - OTHER] IVPB SCH (10:46)
[2018-10-19] MEDS: Dexmedetomidine* 400 MCG in NS 0.9% 100 ML* 96 ML IVPB SCH ×2 (15:50→15:52)
[2018-10-20] MEDS: NS 0.9% IVPB SCH ×3 (04:05→21:51)
[2018-10-20] MEDS: DEXMEDETOMIDINE IVPB SCH ×3 (04:05→21:51)
[2018-10-20] MEDS: ZOSYN 3.375 GM Q8H per EXTENDED INFUSION IVPB SCH ×6 (07:13→21:47)
[2018-10-20] MEDS: Metoprolol Tartrate IV* 1 MG/ML 5 ML VIAL IV PRN ×4 (07:26→21:50)
[2018-10-20] MEDS: Chlorhexidine MOUTHWASH 0.12%* 15 ML UDC SWISH SPIT SCH ×2 (09:03→12:20)
[2018-10-20] MEDS: Heparin VIAL(*) 5000 UNITS/ML VIAL (FIVE THOUSAND) SUBCUT SCH ×2 (09:03→21:51)
[2018-10-20] MEDS: Pantoprazole IV* 40 MG IV SCH ×2 (09:03→21:50)
[2018-10-20] MEDS: Oxazepam CAP* 10 MG PO SCH ×3 (09:04→21:51)
[2018-10-20] MEDS: Thiamine TAB* 100 MG TAB G TUBE SCH (09:04)
[2018-10-20] MEDS: amLODIPine TAB* 5 MG PO SCH (09:04)
[2018-10-20] MEDS: Aspirin TAB* 325 MG PO SCH (09:04)
[2018-10-20] MEDS: Lisinopril TAB* 10 MG PO SCH (09:04)
[2018-10-20 09:07] LABS: Hematocrit 39 % (42-52); Hemoglobin 13.3 g/dl (14.0-18.0); Mean Corpuscular HGB Conc 34 g/dl (31-36); Mean Corpuscular Hemoglobin 32 pg (27-31); Mean Corpuscular Volume 93 fL (80-94); Mean Platelet Volume 8.8 fL (7.4-10.4); Platelet Count 403 10^3/ul (150-450); Red Cell Distribution Width 15 % (10.5-15); White Blood Count 9.5 10^3/ul (3.5-10.8)
[2018-10-20 09:25] LABS: INR 0.97 (0.77-1.02)
[2018-10-20 09:40] LABS: Calcium 8.6 mg/dL (8.6-10.3); EGFR African American 208.1 (>60); Potassium 3.6 mmol/L (3.5-5.0)
[2018-10-20] MEDS: MULTIPLE VITAMIN IVPB SCH (10:52)
[2018-10-20] MEDS: FOLIC ACID IVPB SCH (10:52)
[2018-10-20] MEDS: [UNRECOGNIZED DRUG - OTHER] IVPB SCH (10:52)
[2018-10-20] MEDS: hydrALAZINE IV* 20 MG/ML VIAL IV SLOW PU PRN ×2 (15:05→22:36)
--- NOTE | 2018-10-20 15:57 | PN ---
Date of Service: 10/20/18 Vital Signs: Temp Pulse Resp BP SpO2 FiO2 98.4 F 107 24 172/83 94 30 10/20/18 13:02 10/20/18 13:02 10/20/18 13:02 10/20/18 13:00 10/20/18 13:02 10/20 08:00 Physical Exam: Gen: HEENT: Atraumatic, normocephalic Lungs: Clear bilaterally at apices, course rhonchi scattered, no rales or wheeze Cardiac: Normal S1, S2, no murmurs or rubs, RSR to tachycardic on tele with no ectopy Abdomen: Soft, non-tender, positive BSx4 quad Extremities: No clubbing cyanosis or edema Neuro: Lethargic but arousable, mental status improving Fluid Balance (Past 24 Hours): I= O= Net Intake & Output 10/18/18 10/19/18 10/20/18 10/21/18 06:59 06:59 06:59 06:59 Intake Total 3180 2961 3879 759 Output Total 3960 2775 3594 850 Balance -780 186 285 -91 Weight 162 lb 0.636 oz 162 lb 0.636 oz 164 lb 0.383 oz Intake: IV Fluids 1073 1145 1995 521 Banana bag 979 1053 1576 482 NS (0.9%) 36 40 419 39 abx 58 52 IVPB 572 578 126 133 Banana bag 240 NS (0.9%) 117 120 abx 455 218 126 133 Medicated IV 763 623 708 105 CC - Dexmedetomidine/ 541 623 633 105 Precedex potassium 222 75 Tube Feeding 672 445 900 Tube Feeding Flush Amount 100 170 150 Output: Urine 250 Delgado 3960 9425 8544 850 Liquid Stool 500 Tube Feeding Residual 0 490 0 Amount Wasted Labs: Laboratory Results - last 24 hr 10/19/18 10/19/18 10/19/18 12:41 16:35 18:14 WBC RBC Hgb Hct MCV MCH MCHC RDW Plt Count MPV INR (Anticoag Therapy) Sodium Potassium 3.8 Chloride Carbon Dioxide Anion Gap BUN Creatinine Est GFR ( Amer) Est GFR (Non-Af Amer) BUN/Creatinine Ratio Glucose POC Glucose (mg/dL) 129 H 143 H Calcium Ammonia 0310/20/18 10/20/18 00:21 06:23 08:52 WBC RBC Hgb Hct MCV MCH MCHC RDW Plt Count MPV INR (Anticoag Therapy) Sodium Potassium Chloride Carbon Dioxide Anion Gap BUN Creatinine Est GFR ( Amer) Est GFR (Non-Af Amer) BUN/Creatinine Ratio Glucose POC Glucose (mg/dL) 121 H 138 H Calcium Ammonia 63 H 10/20/18 10/20/18 10/20/18 08:52 08:52 08:52 WBC 9.5 RBC 4.20 Hgb 13.3 L Hct 39 L MCV 93 MCH 32 H MCHC 34 RDW 15 Plt Count 403 MPV 8.8 INR (Anticoag Therapy) 0.97 Sodium 138 Potassium 3.6 Chloride 106 Carbon Dioxide 25 Anion Gap 7 BUN 7 Creatinine 0.50 L Est GFR ( Amer) 208.1 Est GFR (Non-Af Amer) 172.0 BUN/Creatinine Ratio 14.0 Glucose 117 H POC Glucose (mg/dL) Calcium 8.6 Ammonia Studies: CT HEAD: Patient Name: PATO BUSBY Medical Record#: [id number] Ordering Physician: Cruz Gaspar MD Acct.#: [id number] : 1960 Age: 58 Sex: M Location: [facility] Exam Date: 10/16/18930 ADM Status: ADM IN Order Information: CT BRAIN WO Accession Number: [id number] CPT: 76979 HISTORY: eval for weakness of rt arm COMPARISONS: April 27, 2005 TECHNIQUE: Multiple contiguous axial CT scans were obtained of the head without intravenous contrast. FINDINGS: HEMORRHAGE/INFARCT: There is no hemorrhage or acute infarct. MASSES/SHIFT: There is no mass or shift. EXTRA-AXIAL SPACES: There are no extra-axial fluid collections. SULCI AND VENTRICLES: The sulci and ventricles are normal in size and position for the patient's stated age. CEREBRUM: There are no focal parenchymal abnormalities. BRAINSTEM: There are no focal parenchymal abnormalities. CEREBELLUM: There are no focal parenchymal abnormalities. VESSELS: The vessels are grossly normal. PARANASAL SINUSES: There is an air-fluid level within the right maxillary sinus. There is opacification of the ethmoid air cells. ORBITS: The orbits are unremarkable. BONES AND SOFT TISSUE: No bone or soft tissue abnormalities are noted. OTHER: None IMPRESSION: 1. NO ACUTE INTRACRANIAL PATHOLOGY. 2. MILD SINUS MUCOSAL INFLAMMATORY DISEASE, WITH AN AIR-FLUID LEVEL IN THE RIGHT MAXILLARY SINUS. IN THE CORRECT CLINICAL SETTING, THIS MAY REPRESENT ACUTE SINUSITIS CARDIAC ECHO: Summary: There was not any prior study for comparison. Conclusions The left ventricular chamber size is normal. The estimated ejection fraction is 50-55%. There is septal flattening of the interventricular septum consistent with right ventricular volume or pressure overload. Abnormal left ventricular diastolic function is observed. There is an E to A reversal in the mitral valve flow pattern suggestive of diastolic dysfunction. The right atrium is mildly dilated. The bubble study is negative. A patent foramen ovale is not demonstrated with color Doppler and agitated contrast. There is a trace of aortic regurgitation. Nutrition: Tube feed, 40ml/hr continuous Impression: This is a 58 year old male with history of ETOH abuse that was intubated for severe withdrawal and agitation. Plan: Plan: 1. Hypoxic Respiratory Failure 2/2 ETOH Withdrawal - Extubated today, tolerating oxytent - Titrate Precedex to 0.4 if tolerated - Continue oxazepam - Continue banana bag, change to oral MVI, thiamin and folic acid when more awake and can tolerate PO - SW consult 2. Influenza Positive - Continue tamiflu and droplet precautions 3. CAP - Continue empiric zosyn and follow cultures 4. Diarrhea - Initially thought is lactulose-induced - Continue rectal tube 5. 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 HTN - Continue clonidine patch, norvasc and MARILU - Hydralazine and metoprolol PRN, increase BB to Q4h DVT Prophy - HSQ and SCDs Code Status - DNR Critical Care Time: 75 minutes
[2018-10-21] MEDS: Metoprolol Tartrate IV* 1 MG/ML 5 ML VIAL IV PRN ×2 (01:29→18:03)
[2018-10-21] MEDS: hydrALAZINE IV* 20 MG/ML VIAL IV SLOW PU PRN ×2 (02:40→19:31)
[2018-10-21] MEDS: DEXMEDETOMIDINE IVPB SCH ×2 (08:01→18:06)
[2018-10-21] MEDS: ZOSYN 3.375 GM Q8H per EXTENDED INFUSION IVPB SCH ×2 (08:01)
[2018-10-21] MEDS: NS 0.9% IVPB SCH ×2 (08:01→18:06)
[2018-10-21] MEDS: Pantoprazole IV* 40 MG IV SCH (08:17)
[2018-10-21] MEDS: Heparin VIAL(*) 5000 UNITS/ML VIAL (FIVE THOUSAND) SUBCUT SCH ×2 (08:17→21:36)
[2018-10-21] MEDS: Lisinopril TAB* 10 MG PO SCH (08:17)
[2018-10-21] MEDS: Aspirin TAB* 325 MG PO SCH (08:17)
[2018-10-21] MEDS: amLODIPine TAB* 5 MG PO SCH (08:17)
[2018-10-21] MEDS: Oxazepam CAP* 10 MG PO SCH (08:17)
[2018-10-21] MEDS: Thiamine TAB* 100 MG TAB G TUBE SCH (08:18)
[2018-10-21] MEDS ORDERED: NS 0.9% 1000 ML** 1,000 ML IV ONE (10:33)
[2018-10-21] MEDS: FOLIC ACID IVPB SCH (10:42)
[2018-10-21] MEDS: [UNRECOGNIZED DRUG - OTHER] IVPB SCH (10:42)
[2018-10-21] MEDS: MULTIPLE VITAMIN IVPB SCH (10:42)
[2018-10-21] MEDS: KCL 20 MEQ/100 ML IVPREMIX* 20 MEQ/100 ML BAG IV SCH ×2 (11:40→14:05)
[2018-10-21] MEDS ORDERED: RiFAXimin* 550 MG TAB PO SCH (12:00)
[2018-10-21] MEDS: LORazepam INJ* 2 MG/ML 1 ML VIAL IV PUSH PRN (14:43)
--- NOTE | 2018-10-21 18:59 | PN ---
Date of Service: 10/21/18 Critical Care Services: 58 M being managed in the ICU for AMS on precedex Somnolent but easily arousable Opens eyes to commands Vital Signs: Temp Pulse Resp BP SpO2 FiO2 100.0 F 111 22 160/87 95 50 10/21/18 17:01 10/21/18 17:01 10/21/18 17:01 10/21/18 17:00 10/21/18 17:01 10/20 16:00 Physical Exam: Gen:NAD HEENT: Atraumatic, normocephalic Lungs: Clear bilaterally Cardiac: Normal S1, S2, no murmurs or rubs, RSR to tachycardic on tele with no ectopy Abdomen: Soft, non-tender, positive BSx4 quad Extremities: No clubbing cyanosis or edema Neuro: Somnolent but easily arousable, Non-focal. On precedex Fluid Balance (Past 24 Hours): I= O= Net Intake & Output 10/19/18 10/20/18 10/21/18 10/22/18 06:59 06:59 06:59 06:59 Intake Total 2961 3879 2634 420 Output Total 2775 3594 3518 922 Balance 186 285 -884 -502 Weight 162 lb 0.636 oz 164 lb 0.383 oz 154 lb 1.65 oz Intake: IV Fluids 1145 1995 1397 102 Banana bag 1053 1576 1082 83 NS (0.9%) 40 419 54 abx 52 261 19 IVPB 578 126 226 117 Banana bag 240 NS (0.9%) 120 abx 218 126 226 117 Medicated IV 623 708 220 101 CC - Dexmedetomidine/ 623 633 220 101 Precedex potassium 75 Oral 0 Tube Feeding 445 900 671 Tube Feeding Flush Amount 170 150 NG Tube Irrigate Amount 120 100 Output: Urine 250 200 Delgado 2285 2844 2818 922 Liquid Stool 500 500 Tube Feeding Residual 490 0 0 Amount Wasted ADLs: Meal Record Start: 10/09/18 22: 18 Freq: DAILY@0900,1400,1800 Status: Complete Protocol: Created 10/09/18 22:18 System (Rec: 10/09/18 22:18 System MED-C05) Document 10/10/18 09:00 XAN2005 (Rec: 10/10/18 09:14 ZHF1038 MED-C11) Document 10/10/18 14:00 LJP3787 (Rec: 10/10/18 15:51 KCA9586 MED-M09) Document 10/10/18 18:00 GBH1562 (Rec: 10/10/18 18:51 ZQR3079 MED-C04) Document 10/11/18 09:00 WXE3934 (Rec: 10/11/18 12:25 ZRO9838 MED-C04) Document 10/11/18 14:00 PGM4164 (Rec: 10/11/18 17:20 JWV1663 MED-C04) ADLs: Meal Record Start: 10/12/18 10: 23 Freq: Status: Active Protocol: Created 10/12/18 10:23 EIP9717 (Rec: 10/12/18 10:23 YYL9328 ICU-M18) Document 10/12/18 18:00 BKH5958 (Rec: 10/12/18 20:47 IUS5337 ICU-C25) Document 10/13/18 09:00 ZOE6176 (Rec: 10/13/18 11:28 LMD3439 ICU-C15) Document 10/13/18 13:00 WOZ2778 (Rec: 10/13/18 13:28 TSK2373 ICU-C15) Document 10/13/18 18:00 MSF8065 (Rec: 10/13/18 18:44 DQL8966 ICU-C15) Document 10/14/18 09:00 DFH8163 (Rec: 10/14/18 11:17 QFF0502 ICU-C15) Document 10/14/18 13:00 KWK1964 (Rec: 10/14/18 13:44 DXA4786 ICU-C15) Document 10/14/18 18:00 FPI4220 (Rec: 10/14/18 18:02 CSM5013 ICU-C15) Document 10/15/18 09:00 XNC4154 (Rec: 10/15/18 09:27 VUX0421 ICU-C16) Document 10/15/18 13:00 TCW9986 (Rec: 10/15/18 14:47 HNN3347 ICU-C16) Document 10/15/18 17:28 XGK9565 (Rec: 10/15/18 17:28 VCX5711 ICU-C25) Intake and Output Start: 10/09/18 14: 36 Freq: Status: Active Protocol: Created 10/09/18 14:36 System (Rec: 10/09/18 14:36 System ED-C24) Document 10/13/18 11:30 JKY0867 (Rec: 10/13/18 12:33 KSE9875 ICU-M22) Intake and Output Start: 10/09/18 22: 18 Freq: DAILY@0600,1400,2200 Status: Complete Protocol: Created 10/09/18 22:18 System (Rec: 10/09/18 22:18 System MED-C05) Document 10/10/18 05:58 MFB7746 (Rec: 10/10/18 05:59 BOJ6937 MED-C02) Document 10/10/18 13:42 WBV8346 (Rec: 10/10/18 13:42 IWP0888 MED-C11) Document 10/10/18 21:51 GMM8276 (Rec: 10/10/18 21:52 WTN9552 MED-C09) Document 10/11/18 03:27 VSI3979 (Rec: 10/11/18 03:28 RMX6634 MED-C09) Document 10/11/18 14:32 MRB2109 (Rec: 10/11/18 14:32 ZYC6606 MED-C16) Document 10/11/18 22:00 JIC4316 (Rec: 10/12/18 00:45 NVF4498 MED-C07) Document 10/12/18 05:50 IOO8529 (Rec: 10/12/18 05:50 QUG9061 MED-C07) Intake and Output Start: 10/12/18 10: 23 Freq: Q1HR Status: Active Protocol: Created 10/12/18 10:23 TWS1454 (Rec: 10/12/18 10:23 XJE3155 ICU-M18) Document 10/12/18 11:51 IPL9332 (Rec: 10/12/18 11:51 FRX1832 ICU-M18) Document 10/12/18 14:00 PJM2356 (Rec: 10/12/18 15:04 DUY6128 ICU-C06) Document 10/12/18 15:00 HQS2351 (Rec: 10/12/18 15:58 QVE3086 ICU-C06) Document 10/12/18 19:00 YDH8478 (Rec: 10/12/18 19:35 TAW1103 ICU-M22) Document 10/12/18 20:00 KEE1638 (Rec: 10/12/18 20:42 DSJ6100 ICU-C25) Document 10/12/18 21:00 QGZ7599 (Rec: 10/12/18 22:35 IBZ7620 ICU-M22) Document 10/12/18 22:00 YIK2671 (Rec: 10/12/18 22:56 YRB2880 ICU-M22) Document 10/12/18 23:00 TDZ8096 (Rec: 10/12/18 23:03 OVT8441 ICU-M22) Document 10/13/18 00:00 CQP5038 (Rec: 10/13/18 00:26 FOC7708 ICU-C25) Document 10/13/18 01:00 ZRU6153 (Rec: 10/13/18 01:09 UKL1245 ICU-M22) Document 10/13/18 02:00 UHX3284 (Rec: 10/13/18 03:53 CQB7602 ICU-C25) Document 10/13/18 03:00 XNE7302 (Rec: 10/13/18 03:53 RTU4188 ICU-C25) Document 10/13/18 04:00 EQL7557 (Rec: 10/13/18 05:12 IZK8962 ICU-C25) Document 10/13/18 05:00 EBD2469 (Rec: 10/13/18 05:13 NUU4016 ICU-C25) Document 10/13/18 06:00 AKL0750 (Rec: 10/13/18 06:22 ZMV7026 ICU-C25) Document 10/13/18 07:00 SGA7848 (Rec: 10/13/18 07:55 PYM1484 ICU-C15) Document 10/13/18 08:00 ETI6105 (Rec: 10/13/18 10:17 VIJ7762 ICU-C15) Document 10/13/18 09:00 HSX2102 (Rec: 10/13/18 10:17 FSP2877 ICU-C15) Document 10/13/18 10:00 YWM7313 (Rec: 10/13/18 11:29 NMH9006 ICU-C15) Document 10/13/18 11:00 PDU3467 (Rec: 10/13/18 11:30 WAI9954 ICU-C15) Document 10/13/18 12:00 FXE0479 (Rec: 10/13/18 12:50 TVD5442 ICU-M22) Document 10/13/18 13:00 WMW5486 (Rec: 10/13/18 13:28 SSJ0740 ICU-C15) Document 10/13/18 15:51 OAE2862 (Rec: 10/13/18 15:51 HJX7460 ICU-C15) Document 10/13/18 16:00 REW2254 (Rec: 10/13/18 17:01 MAU2540 ICU-C15) Document 10/13/18 17:00 XMV8759 (Rec: 10/13/18 17:07 PFZ6007 ICU-C15) Document 10/13/18 17:39 DRQ6922 (Rec: 10/13/18 17:40 ELB3138 ICU-M22) Document 10/13/18 18:00 TUW8311 (Rec: 10/13/18 18:44 EVQ3316 ICU-C15) Document 10/13/18 19:00 GLB9101 (Rec: 10/13/18 20:28 YLL0482 ICU-M22) Document 10/13/18 20:00 FCC6659 (Rec: 10/13/18 20:28 RVA7084 ICU-M22) Document 10/13/18 21:00 HRP7814 (Rec: 10/13/18 21:09 QSM1381 ICU-M22) Document 10/13/18 22:00 JCJ4509 (Rec: 10/13/18 22:09 MDS5960 ICU-M22) Document 10/13/18 23:00 TDB3743 (Rec: 10/13/18 23:23 CVZ8376 ICU-C25) Document 10/14/18 00:00 LQT9745 (Rec: 10/14/18 00:02 CJH8687 ICU-C25) Document 10/14/18 01:00 JPW4017 (Rec: 10/14/18 01:02 JWK2464 ICU-M22) Document 10/14/18 02:00 EVQ0483 (Rec: 10/14/18 02:12 OPO4216 ICU-M22) Document 10/14/18 03:00 FSO7605 (Rec: 10/14/18 03:34 EUE4812 ICU-M22) Document 10/14/18 04:00 BYR2831 (Rec: 10/14/18 04:44 KAL9152 ICU-C25) Document 10/14/18 04:48 TPI9433 (Rec: 10/14/18 04:48 RRU3176 ICU-C25) Document 10/14/18 06:00 FCU0764 (Rec: 10/14/18 06:26 OZL4539 ICU-M22) Document 10/14/18 07:00 IFY5859 (Rec: 10/14/18 07:53 LCW9713 ICU-C15) Document 10/14/18 08:00 WHX7714 (Rec: 10/14/18 09:41 RMQ3095 ICU-M22) Document 10/14/18 09:00 UMU5452 (Rec: 10/14/18 09:42 EXV8016 ICU-M22) Document 10/14/18 10:00 IIM2371 (Rec: 10/14/18 10:29 YNS9971 ICU-M22) Document 10/14/18 11:00 RIM8916 (Rec: 10/14/18 11:36 CNU9824 ICU-C15) Document 10/14/18 12:00 DJF1418 (Rec: 10/14/18 12:26 IRL5437 ICU-M22) Document 10/14/18 13:00 CFR6295 (Rec: 10/14/18 13:44 BLC7426 ICU-C15) Document 10/14/18 14:00 WFR9842 (Rec: 10/14/18 14:16 UGO9271 ICU-M22) Document 10/14/18 15:00 YCA9322 (Rec: 10/14/18 15:04 REX2109 ICU-C15) Document 10/14/18 16:00 DPJ2597 (Rec: 10/14/18 16:54 KKP3749 ICU-C15) Document 10/14/18 17:00 PZG2961 (Rec: 10/14/18 17:32 IIB1989 ICU-C15) Document 10/14/18 17:55 OVJ9215 (Rec: 10/14/18 17:55 RAI4585 ICU-M22) Document 10/14/18 19:00 NWO8000 (Rec: 10/14/18 19:27 LIE8785 ICU-M22) Document 10/14/18 20:00 XIZ1253 (Rec: 10/14/18 20:34 BJH7996 ICU-M22) Document 10/14/18 21:00 LIY8172 (Rec: 10/14/18 21:52 IRT9659 ICU-M22) Document 10/14/18 22:00 VDD4651 (Rec: 10/14/18 22:48 SAI5873 ICU-M22) Document 10/14/18 23:00 SCV1457 (Rec: 10/14/18 23:13 UVB6846 ICU-C25) Document 10/15/18 00:00 GOY0605 (Rec: 10/15/18 01:25 WYG4617 ICU-C25) Document 10/15/18 01:00 RGM1829 (Rec: 10/15/18 01:25 APT4275 ICU-C25) Document 10/15/18 02:00 LRD6725 (Rec: 10/15/18 03:39 FEM1687 ICU-M22) Document 10/15/18 03:00 DEY2799 (Rec: 10/15/18 03:39 VXT5062 ICU-M22) Document 10/15/18 04:00 JPI3801 (Rec: 10/15/18 06:12 BFK6807 ICU-M22) Document 10/15/18 05:00 SES8110 (Rec: 10/15/18 06:12 LRK5580 ICU-M22) Document 10/15/18 06:00 NYT0078 (Rec: 10/15/18 06:12 UQB1500 ICU-M22) Document 10/15/18 07:00 MNM8020 (Rec: 10/15/18 07:30 SRX4004 ICU-C16) Document 10/15/18 08:00 WDF5230 (Rec: 10/15/18 08:08 TVE5990 ICU-M22) Document 10/15/18 09:00 GWA4978 (Rec: 10/15/18 09:21 EXY7437 ICU-C16) Document 10/15/18 10:00 JUP8281 (Rec: 10/15/18 10:06 XNY0968 ICU-C16) Document 10/15/18 10:30 DGZ2350 (Rec: 10/15/18 10:31 VQH9677 ICU-M22) Document 10/15/18 11:00 VKT2225 (Rec: 10/15/18 11:40 PCT0383 ICU-C16) Document 10/15/18 12:00 GOC9517 (Rec: 10/15/18 12:05 COI3756 ICU-C16) Document 10/15/18 12:55 PRZ6790 (Rec: 10/15/18 12:55 EBX6940 ICU-C16) Document 10/15/18 15:34 LND1006 (Rec: 10/15/18 15:35 BIZ4727 ICU-M22) Document 10/15/18 16:31 BRD0533 (Rec: 10/15/18 16:31 DBL5717 ICU-M22) Document 10/15/18 16:54 IVR3640 (Rec: 10/15/18 16:58 PKA8489 ICU-C25) Document 10/15/18 18:00 MGV5800 (Rec: 10/15/18 18:01 NCU3403 ICU-M22) Document 10/15/18 19:11 BIX6518 (Rec: 10/15/18 19:11 FDA1048 ICU-M22) Document 10/15/18 20:00 WEG0109 (Rec: 10/15/18 20:05 SKA8508 ICU-M22) Document 10/15/18 21:00 YPX4919 (Rec: 10/15/18 21:17 FST9909 ICU-M22) Document 10/15/18 21:31 MGE4777 (Rec: 10/15/18 21:31 LQL4476 ICU-M22) Document 10/15/18 22:04 UWL9890 (Rec: 10/15/18 22:04 UKI6635 ICU-C11) Document 10/15/18 23:00 YJW7880 (Rec: 10/15/18 23:04 GFJ6744 ICU-M22) Document 10/16/18 01:00 UBJ3435 (Rec: 10/16/18 01:11 USR6146 ICU-M22) Document 10/16/18 02:00 EHN6247 (Rec: 10/16/18 02:15 UZD8814 ICU-C15) Document 10/16/18 02:57 EYP5314 (Rec: 10/16/18 02:58 DAE3499 ICU-C15) Document 10/16/18 05:00 RWS4598 (Rec: 10/16/18 05:04 NNQ1534 ICU-M22) Document 10/16/18 05:38 YLJ8958 (Rec: 10/16/18 05:38 FWF1904 ICU-C15) Document 10/16/18 06:00 KID3317 (Rec: 10/16/18 06:04 EDF9702 ICU-C15) Document 10/16/18 07:00 DRI1343 (Rec: 10/16/18 10:48 RGE9883 ICU-C15) Document 10/16/18 08:00 SCR9826 (Rec: 10/16/18 10:48 XSU7053 ICU-C15) Document 10/16/18 09:00 MWZ8515 (Rec: 10/16/18 10:49 ASU5629 ICU-C15) Document 10/16/18 10:00 CUA9445 (Rec: 10/16/18 10:49 CGC6413 ICU-C15) Document 10/16/18 11:00 GQR6272 (Rec: 10/16/18 11:06 RIA0057 ICU-C15) Document 10/16/18 11:00 STR4113 (Rec: 10/16/18 15:19 AYA2486 ICU-C15) Document 10/16/18 12:00 UWO5191 (Rec: 10/16/18 13:50 PDV6265 ICU-M22) Document 10/16/18 13:48 ERC8784 (Rec: 10/16/18 13:50 ZQY4595 ICU-M22) Document 10/16/18 15:00 CHW9657 (Rec: 10/16/18 17:20 BKK8061 ICU-M32) Document 10/16/18 16:00 NAI4928 (Rec: 10/16/18 17:21 FSX6220 ICU-M32) Document 10/16/18 16:00 EPM3287 (Rec: 10/16/18 17:22 YWL4437 ICU-M32) Document 10/16/18 17:00 XIG5454 (Rec: 10/16/18 17:21 KVZ1448 ICU-M32) Document 10/16/18 18:00 SWJ8809 (Rec: 10/16/18 18:05 APA8105 ICU-M32) Document 10/16/18 22:26 LIJ7418 (Rec: 10/16/18 22:26 GPY1211 ICU-M22) Document 10/17/18 01:00 MXR1505 (Rec: 10/17/18 02:14 ZJJ8316 ICU-C25) Document 10/17/18 03:00 TOK3135 (Rec: 10/17/18 03:16 ZVA3706 ICU-C25) Document 10/17/18 03:55 NBD3308 (Rec: 10/17/18 03:55 NVB1464 ICU-C25) Document 10/17/18 05:00 WCX2210 (Rec: 10/17/18 05:06 NPC5642 ICU-C25) Document 10/17/18 06:00 VBT0004 (Rec: 10/17/18 06:22 EWE6229 ICU-M22) Document 10/17/18 06:22 ZFK5463 (Rec: 10/17/18 06:22 FBU9564 ICU-M22) Document 10/17/18 08:00 NNZ6341 (Rec: 10/17/18 15:37 FVK7801 ICU-C15) Document 10/17/18 10:00 UYB0758 (Rec: 10/17/18 15:39 NEW7391 ICU-C15) Document 10/17/18 11:00 BYS3406 (Rec: 10/17/18 15:40 NOM4662 ICU-C15) Document 10/17/18 12:00 ODJ4108 (Rec: 10/17/18 15:40 YKZ8766 ICU-C15) Document 10/17/18 13:00 ANH1817 (Rec: 10/17/18 15:40 AXI8736 ICU-C15) Document 10/17/18 14:00 YMV8650 (Rec: 10/17/18 15:40 QUO6604 ICU-C15) Document 10/17/18 15:00 YWM2431 (Rec: 10/17/18 18:16 HCU8190 ICU-C15) Document 10/17/18 16:00 MNO3335 (Rec: 10/17/18 18:16 PFE6625 ICU-C15) Document 10/17/18 17:00 GIB3810 (Rec: 10/17/18 18:16 XVQ9255 ICU-C15) Document 10/17/18 18:00 ARZ0201 (Rec: 10/17/18 18:58 FHM0500 ICU-C15) Document 10/17/18 19:00 FIK2249 (Rec: 10/17/18 19:29 VBV9659 ICU-M22) Document 10/17/18 20:00 QNM2585 (Rec: 10/17/18 21:08 NPV5136 ICU-C16) Document 10/17/18 21:00 WCO7163 (Rec: 10/17/18 21:40 JFP1768 ICU-M22) Document 10/17/18 22:00 JBT1639 (Rec: 10/17/18 23:20 HZK0223 ICU-C16) Document 10/17/18 23:00 RVS5882 (Rec: 10/17/18 23:20 IYC3165 ICU-C16) Document 10/17/18 23:54 HQB0828 (Rec: 10/17/18 23:54 KHG1324 ICU-M22) Document 10/18/18 01:00 QYL7506 (Rec: 10/18/18 04:01 MTQ2371 ICU-M22) Document 10/18/18 02:00 HSI4444 (Rec: 10/18/18 04:01 CPK8505 ICU-M22) Document 10/18/18 03:00 RMQ9521 (Rec: 10/18/18 04:01 INQ1723 ICU-M22) Document 10/18/18 04:00 RTZ9485 (Rec: 10/18/18 04:01 NBT4689 ICU-M22) Document 10/18/18 04:00 PPM0975 (Rec: 10/18/18 05:21 CEE8219 ICU-C16) Document 10/18/18 06:00 KZW8061 (Rec: 10/18/18 06:02 KLH5201 ICU-M22) Document 10/18/18 07:00 IOY2120 (Rec: 10/18/18 10:00 RNN6864 ICU-C15) Document 10/18/18 08:00 BQJ3958 (Rec: 10/18/18 10:00 RKS8758 ICU-C15) Document 10/18/18 09:00 ITV5307 (Rec: 10/18/18 10:00 NNL8279 ICU-C15) Document 10/18/18 10:00 ISG2733 (Rec: 10/18/18 10:38 SXB7715 ICU-C15) Document 10/18/18 11:00 NYG5625 (Rec: 10/18/18 11:15 WGI1878 ICU-M22) Document 10/18/18 12:00 YTY0036 (Rec: 10/18/18 15:31 VQW0497 ICU-C15) Document 10/18/18 13:00 YIE3129 (Rec: 10/18/18 15:31 VAF2036 ICU-C15) Document 10/18/18 14:00 GEE7103 (Rec: 10/18/18 15:31 JDV7786 ICU-C15) Document 10/18/18 15:00 PCF7092 (Rec: 10/18/18 15:31 LLP6011 ICU-C15) Document 10/18/18 16:00 WCK6411 (Rec: 10/18/18 17:12 CMG7104 ICU-C15) Document 10/18/18 17:00 WSY7333 (Rec: 10/18/18 17:12 NXS7187 ICU-C15) Document 10/18/18 18:00 KRO9514 (Rec: 10/18/18 19:13 NTD2918 ICU-C15) Document 10/18/18 19:00 HTB0413 (Rec: 10/18/18 19:13 TGT7365 ICU-C15) Document 10/18/18 20:00 EUP0876 (Rec: 10/18/18 21:24 PCZ2505 ICU-M22) Document 10/18/18 21:00 DGJ2247 (Rec: 10/18/18 21:24 FEB6004 ICU-M22) Document 10/18/18 21:43 DGY8778 (Rec: 10/18/18 21:43 KVC9982 ICU-M22) Document 10/18/18 22:00 HDO7945 (Rec: 10/18/18 22:02 NZH1861 ICU-M22) Document 10/18/18 23:00 KVY8923 (Rec: 10/19/18 00:02 STF9335 ICU-L03) Document 10/19/18 00:00 GFZ7122 (Rec: 10/19/18 01:22 FAF4823 ICU-L03) Document 10/19/18 01:00 KJZ0916 (Rec: 10/19/18 01:22 ALB5803 ICU-L03) Document 10/19/18 02:00 DDT6788 (Rec: 10/19/18 04:40 GOI5229 ICU-L03) Document 10/19/18 03:00 GGV0157 (Rec: 10/19/18 04:40 YBQ4045 ICU-L03) Document 10/19/18 04:00 PEN3842 (Rec: 10/19/18 04:40 QAY5192 ICU-L03) Document 10/19/18 05:00 HGL0982 (Rec: 10/19/18 05:04 IMJ8383 ICU-M22) Document 10/19/18 06:00 FET0361 (Rec: 10/19/18 06:52 RIX2118 ICU-L03) Document 10/19/18 07:00 CGH6169 (Rec: 10/19/18 07:09 YNA9970 ICU-M22) Document 10/19/18 08:00 GDU5394 (Rec: 10/19/18 09:48 YJB3913 ICU-C12) Document 10/19/18 09:00 HXQ6992 (Rec: 10/19/18 09:57 ESJ2392 ICU-C12) Document 10/19/18 09:57 FKR7471 (Rec: 10/19/18 09:57 LLE5808 ICU-C12) Document 10/19/18 11:00 EJT6304 (Rec: 10/19/18 11:40 DHE5071 ICU-C12) Document 10/19/18 12:00 TLQ8258 (Rec: 10/19/18 12:20 ODB4690 ICU-C12) Document 10/19/18 14:00 LIM7008 (Rec: 10/19/18 14:38 OIN3696 ICU-C12) Document 10/19/18 15:00 HTZ5713 (Rec: 10/19/18 16:42 JFK7166 ICU-M22) Document 10/19/18 16:00 WMZ1832 (Rec: 10/19/18 16:42 VFO7503 ICU-M22) Document 10/19/18 17:00 CVU2943 (Rec: 10/19/18 18:11 JXL4969 ICU-C25) Document 10/19/18 18:00 NYT6021 (Rec: 10/19/18 18:11 NWK2126 ICU-C25) Document 10/19/18 20:00 ZFO6020 (Rec: 10/19/18 20:35 ZBU8249 ICU-M22) Document 10/19/18 22:00 LSP1443 (Rec: 10/19/18 22:20 DOX4648 ICU-M22) Document 10/19/18 23:00 WGE3412 (Rec: 10/19/18 23:48 NNU2485 ICU-M22) Document 10/20/18 00:00 HTK9123 (Rec: 10/20/18 00:34 ERD0014 ICU-L03) Document 10/20/18 01:00 XUS9622 (Rec: 10/20/18 01:35 CYU9914 ICU-L03) Document 10/20/18 02:00 NRK8531 (Rec: 10/20/18 02:10 PDY5793 ICU-L03) Document 10/20/18 03:00 UUU0453 (Rec: 10/20/18 03:23 NTZ8023 ICU-L03) Document 10/20/18 04:00 QPD2566 (Rec: 10/20/18 05:57 WHG8523 ICU-L03) Document 10/20/18 05:00 NZY4071 (Rec: 10/20/18 06:08 EKX2723 ICU-L03) Document 10/20/18 06:00 JEJ2353 (Rec: 10/20/18 06:15 WJR9835 ICU-L03) Document 10/20/18 07:00 GJO6143 (Rec: 10/20/18 07:19 YTW2655 ICU-L03) Document 10/20/18 08:00 NSE0945 (Rec: 10/20/18 09:24 MQN7083 ICU-M22) Document 10/20/18 09:00 XRB3059 (Rec: 10/20/18 09:24 VHY5574 ICU-M22) Document 10/20/18 10:15 EUL5056 (Rec: 10/20/18 10:40 SJV5192 ICU-C15) Document 10/20/18 11:00 RXS9552 (Rec: 10/20/18 13:16 OLH2437 ICU-C15) Document 10/20/18 12:00 ZKC6582 (Rec: 10/20/18 13:16 IEF1721 ICU-C15) Document 10/20/18 13:00 QQV9089 (Rec: 10/20/18 13:16 OOK8117 ICU-C15) Document 10/20/18 14:00 AZY9032 (Rec: 10/20/18 16:47 RFT2711 ICU-C15) Document 10/20/18 15:00 RCF4283 (Rec: 10/20/18 16:47 TFK6848 ICU-C15) Document 10/20/18 16:00 VVR6840 (Rec: 10/20/18 16:47 WOP9987 ICU-C15) Document 10/20/18 16:48 PEC5430 (Rec: 10/20/18 16:48 XKG4818 ICU-C15) Document 10/20/18 18:00 ZWZ7037 (Rec: 10/20/18 18:20 JKN3290 ICU-C15) Document 10/20/18 19:00 VQZ7529 (Rec: 10/20/18 20:39 WVM5817 ICU-C15) Document 10/20/18 20:00 DVE4563 (Rec: 10/20/18 20:39 QAO6116 ICU-C15) Document 10/20/18 21:00 TAJ7575 (Rec: 10/20/18 22:03 NFE8001 ICU-M22) Document 10/20/18 22:00 JWZ5135 (Rec: 10/20/18 22:03 AVA7530 ICU-M22) Document 10/20/18 23:00 QTV9186 (Rec: 10/21/18 00:18 XMY1050 ICU-C15) Document 10/21/18 00:00 PCJ2449 (Rec: 10/21/18 01:10 KVN5679 ICU-C15) Document 10/21/18 01:00 MZJ3000 (Rec: 10/21/18 01:35 SEH5366 ICU-C15) Document 10/21/18 02:00 NFS3164 (Rec: 10/21/18 02:55 HZH9905 ICU-C15) Document 10/21/18 03:00 GOG1330 (Rec: 10/21/18 03:17 EYT2692 ICU-C15) Document 10/21/18 04:00 WZT1326 (Rec: 10/21/18 05:05 AEM4770 ICU-C15) Document 10/21/18 05:00 TEA6192 (Rec: 10/21/18 05:11 [id number] ICU-C15) Document 10/21/18 06:00 [id number] (Rec: 10/21/18 06:34 [id number] ICU-C15) Document 10/21/18 08:00 [id number] (Rec: 10/21/18 08:50 [id number] ICU-M22) Document 10/21/18 10:00 [id number] (Rec: 10/21/18 10:48 [id number] ICU-C15) Document 10/21/18 11:00 [id number] (Rec: 10/21/18 11:12 [id number] ICU-C15) Document 10/21/18 12:00 [id number] (Rec: 10/21/18 12:27 [id number] ICU-C15) Document 10/21/18 13:00 [id number] (Rec: 10/21/18 13:04 [id number] ICU-C15) Document 10/21/18 14:00 [id number] (Rec: 10/21/18 14:00 [id number] ICU-C15) Document 10/21/18 14:54 [id number] (Rec: 10/21/18 14:54 [id number] ICU-C15) Document 10/21/18 16:00 [id number] (Rec: 10/21/18 16:55 [id number] ICU-M32) Document 10/21/18 17:58 [id number] (Rec: 10/21/18 17:58 [id number] ICU-M22) Labs: Laboratory Results - last 24 hr 10/20/18 10/21/18 10/21/18 18:02 00:53 06:00 POC Glucose (mg/dL) 134 H 134 H Ammonia 60 H 10/21/18 10/21/18 06:30 13:07 POC Glucose (mg/dL) 133 H 122 H Ammonia Studies: CXR: bilateral interstitial opacities CT HEAD: Patient Name: PATO BUSBY Medical Record#: [id number] [facility]ing Phys[facility] [id number] : 1960 Age: 58 Sex: M Location: [facility] Exam Date: 10/16/18930 ADM Status: ADM IN Order Information: CT BRAIN WO Accession Number: [id number] CPT: 31717 HISTORY: eval for weakness of rt arm COMPARISONS: April 27, 2005 TECHNIQUE: Multiple contiguous axial CT scans were obtained of the head without intravenous contrast. FINDINGS: HEMORRHAGE/INFARCT: There is no hemorrhage or acute infarct. MASSES/SHIFT: There is no mass or shift. EXTRA-AXIAL SPACES: There are no extra-axial fluid collections. SULCI AND VENTRICLES: The sulci and ventricles are normal in size and position for the patient's stated age. CEREBRUM: There are no focal parenchymal abnormalities. BRAINSTEM: There are no focal parenchymal abnormalities. CEREBELLUM: There are no focal parenchymal abnormalities. VESSELS: The vessels are grossly normal. PARANASAL SINUSES: There is an air-fluid level within the right maxillary sinus. There is opacification of the ethmoid air cells. ORBITS: The orbits are unremarkable. BONES AND SOFT TISSUE: No bone or soft tissue abnormalities are noted. OTHER: None IMPRESSION: 1. NO ACUTE INTRACRANIAL PATHOLOGY. 2. MILD SINUS MUCOSAL INFLAMMATORY DISEASE, WITH AN AIR-FLUID LEVEL IN THE RIGHT MAXILLARY SINUS. IN THE CORRECT CLINICAL SETTING, THIS MAY REPRESENT ACUTE SINUSITIS CARDIAC ECHO: Summary: There was not any prior study for comparison. Conclusions The left ventricular chamber size is normal. The estimated ejection fraction is 50-55%. There is septal flattening of the interventricular septum consistent with right ventricular volume or pressure overload. Abnormal left ventricular diastolic function is observed. There is an E to A reversal in the mitral valve flow pattern suggestive of diastolic dysfunction. The right atrium is mildly dilated. The bubble study is negative. A patent foramen ovale is not demonstrated with color Doppler and agitated contrast. There is a trace of aortic regurgitation. Nutrition: Tube feeds- goal of 75 cc/h Impression: 58 year old male with history of ETOH abuse that was intubated for severe withdrawal and agitation. Plan: 1. Hypoxic Respiratory Failure 2/2 ETOH Withdrawal - Extubated 10/20 - Continue oxazepam - change banana bag to oral MVI, thiamine and folic acid - consult pending - weane off precedex - prn ativan 2. Influenza Positive - Continue tamiflu and droplet precautions 3. CAP - Continue empiric zosyn and follow cultures 4. Diarrhea - Initially thought is lactulose-induced - Continue rectal tube 5. Hepatic Encephalopathy - 2/2 ETOH - Carotid doppler negative, CT head negative, ECHO as above - Replete lytes as needed - Supportive care - started rifaxamin 6. HTN - Continue clonidine patch, norvasc and MARILU - Hydralazine and metoprolol PRN, increase BB to Q4h 7. Electrolyte derrangements follow K+, Mg, phos replace electrolytes per protocol s/p KCL 40 MEQ today 8 Hypovolemia s/p 500cc NS bolus DVT Prophy - HSQ and SCDs Code Status - DNR Critical Care Time: 35 minutes
[2018-10-21] MEDS: Rifaximin 20 mg/mL Suspension (Pharmacy to Compound) G TUBE SCH (21:36)
[2018-10-21] MEDS: QUEtiapine TAB* 25 MG G TUBE SCH (21:36)
--- NOTE | 2018-10-21 23:41 | PN ---
Progress Note - Progress Note Date of Service: 10/21/18 Note: Unable to pass meds via NGT - able to flush liquids. CXR shows NGT coiled in stomach - possible kink. Will pull back 5 cm and re-try meds.
[2018-10-22] MEDS: LORazepam INJ* 2 MG/ML 1 ML VIAL IV PUSH PRN ×2 (00:53→18:11)
[2018-10-22] MEDS: NS 0.9% IVPB SCH ×5 (02:35→18:27)
[2018-10-22] MEDS: DEXMEDETOMIDINE IVPB SCH ×5 (02:35→18:27)
[2018-10-22 04:46] LABS: Hematocrit 39 % (42-52); Hemoglobin 13.1 g/dl (14.0-18.0); Mean Corpuscular HGB Conc 34 g/dl (31-36); Mean Corpuscular Hemoglobin 32 pg (27-31); Mean Corpuscular Volume 94 fL (80-94); Mean Platelet Volume 8.4 fL (7.4-10.4); Platelet Count 425 10^3/ul (150-450); Red Blood Count 4.16 10^6/ul (4.00-5.40); Red Cell Distribution Width 15 % (10.5-15); White Blood Count 11.4 10^3/ul (3.5-10.8)
[2018-10-22 04:47] LABS: ABS Basophils 0 10^3/ul (0-0.2); ABS Eosinophils 0.1 10^3/ul (0-0.6); ABS Monocytes 1.8 10^3/ul (0-0.8); ABS Neutrophils 6.5 10^3/ul (1.5-7.7); ABS Nucleated RBC 0 10^3/ul; Eosinophil % 1.1 %; Nucleated Red Blood Cells % 0.1
[2018-10-22 05:00] LABS: BUN/Creatinine Ratio 15.1 (8-20); Calcium 8.6 mg/dL (8.6-10.3); EGFR African American 194.6 (>60); EGFR Non-African American 160.8 (>60); Magnesium 1.9 mg/dL (1.9-2.7); Phosphorus 3.2 mg/dL (2.5-5.0); Potassium 3.1 mmol/L (3.5-5.0)
[2018-10-22] MEDS ORDERED: LORazepam INJ* 2 MG/ML 1 ML VIAL IV PUSH ONE ×2 (06:05→20:28)
[2018-10-22] MEDS: Heparin VIAL(*) 5000 UNITS/ML VIAL (FIVE THOUSAND) SUBCUT SCH ×2 (08:49→19:45)
[2018-10-22] MEDS: Multivitamins ADULT w/MIN LIQ* 15 ML UDC NG TUBE SCH (10:30)
[2018-10-22] MEDS: Lansoprazole SUSP* ORALSYR 3 MG/ML PO SCH (10:32)
[2018-10-22] MEDS: Rifaximin 20 mg/mL Suspension (Pharmacy to Compound) G TUBE SCH ×2 (10:33→19:45)
[2018-10-22] MEDS: KCL 20 MEQ/100 ML IVPREMIX* 20 MEQ/100 ML BAG IV SCH ×3 (10:38→17:44)
--- NOTE | 2018-10-22 10:49 | PN ---
Date of Service: 10/22/18 Critical Care Services: 58 M being managed in the ICU for AMS- encephalopathy, agitation on precedex 1.2 Somnolent but easily arousable Opens eyes to commands Vital Signs: Temp Pulse Resp BP SpO2 FiO2 98.8 F 120 27 140/85 91 50 10/22/18 10:00 10/22/18 10:00 10/22/18 10:00 10/22/18 09:00 10/22/18 10:00 10/20 16:00 Physical Exam: Gen:NAD HEENT: Atraumatic, normocephalic. Neck supple, no thyromegaly. Dry mucous membranes Lungs: Clear bilaterally Cardiac: Normal S1, S2, no murmurs or rubs, RSR to tachycardic on tele with no ectopy Abdomen: Soft, non-tender, positive BSx4 quad Extremities: No clubbing cyanosis or edema Neuro: Somnolent but easily arousable, Non-focal. On precedex Fluid Balance (Past 24 Hours): I= O= Net Intake & Output 10/20/18 10/21/18 10/22/18 10/23/18 06:59 06:59 06:59 06:59 Intake Total 3879 2634 2407 Output Total 3594 3518 1991 325 Balance 285 -884 415 -325 Weight 164 lb 0.383 oz 154 lb 1.65 oz 153 lb 10.595 oz Intake: IV Fluids 1994 1397 1851 Banana bag 1576 1082 918 NS (0.9%) 419 54 700 abx 261 233 IVPB 126 226 117 abx 126 226 117 Medicated IV 708 220 215 CC - Dexmedetomidine/ 633 220 215 Precedex potassium 75 Oral 0 0 Tube Feeding 900 671 124 Tube Feeding Flush Amount 150 NG Tube Irrigate Amount 120 100 Output: Urine 250 200 Delgado 2844 2818 1991 325 Liquid Stool 500 500 Tube Feeding Residual 0 0 0 Amount Wasted ADLs: Meal Record Start: 10/09/18 22: 18 Freq: DAILY@0900,1400,1800 Status: Complete Protocol: Created 10/09/18 22:18 System (Rec: 10/09/18 22:18 System MED-C05) Document 10/10/18 09:00 PNS1933 (Rec: 10/10/18 09:14 MNE3887 MED-C11) Document 10/10/18 14:00 PIP4683 (Rec: 10/10/18 15:51 KRJ8522 MED-M09) Document 10/10/18 18:00 XGF5473 (Rec: 10/10/18 18:51 NJO3842 MED-C04) Document 10/11/18 09:00 DCC0504 (Rec: 10/11/18 12:25 ZDS6024 MED-C04) Document 10/11/18 14:00 GZP3795 (Rec: 10/11/18 17:20 KGN7687 MED-C04) ADLs: Meal Record Start: 10/12/18 10: 23 Freq: Status: Active Protocol: Created 10/12/18 10:23 QVT2602 (Rec: 10/12/18 10:23 WKN5100 ICU-M18) Document 10/12/18 18:00 MQG4055 (Rec: 10/12/18 20:47 ZPU7018 ICU-C25) Document 10/13/18 09:00 MOM9866 (Rec: 10/13/18 11:28 IKE9316 ICU-C15) Document 10/13/18 13:00 MGY7469 (Rec: 10/13/18 13:28 KXI8911 ICU-C15) Document 10/13/18 18:00 DKC3965 (Rec: 10/13/18 18:44 SIK5947 ICU-C15) Document 10/14/18 09:00 CXA2838 (Rec: 10/14/18 11:17 JVL4495 ICU-C15) Document 10/14/18 13:00 QAN5270 (Rec: 10/14/18 13:44 CDX9922 ICU-C15) Document 10/14/18 18:00 GFJ6764 (Rec: 10/14/18 18:02 KAR5273 ICU-C15) Document 10/15/18 09:00 QXC4005 (Rec: 10/15/18 09:27 HFL3068 ICU-C16) Document 10/15/18 13:00 RSU5274 (Rec: 10/15/18 14:47 OED3294 ICU-C16) Document 10/15/18 17:28 IQH0952 (Rec: 10/15/18 17:28 VKQ0807 ICU-C25) Intake and Output Start: 10/09/18 14: 36 Freq: Status: Active Protocol: Created 10/09/18 14:36 System (Rec: 10/09/18 14:36 System ED-C24) Document 10/13/18 11:30 CED4955 (Rec: 10/13/18 12:33 RZF5158 ICU-M22) Intake and Output Start: 10/09/18 22: 18 Freq: DAILY@0600,1400,2200 Status: Complete Protocol: Created 10/09/18 22:18 System (Rec: 10/09/18 22:18 System MED-C05) Document 10/10/18 05:58 HWS7429 (Rec: 10/10/18 05:59 PEH5190 MED-C02) Document 10/10/18 13:42 SNY3373 (Rec: 10/10/18 13:42 YST0566 MED-C11) Document 10/10/18 21:51 PMT7279 (Rec: 10/10/18 21:52 XPQ5902 MED-C09) Document 10/11/18 03:27 CLF7391 (Rec: 10/11/18 03:28 YME7387 MED-C09) Document 10/11/18 14:32 BYP2676 (Rec: 10/11/18 14:32 YXV1422 MED-C16) Document 10/11/18 22:00 WFY7599 (Rec: 10/12/18 00:45 DNW9802 MED-C07) Document 10/12/18 05:50 LSL5218 (Rec: 10/12/18 05:50 GUN7360 MED-C07) Intake and Output Start: 10/12/18 10: 23 Freq: Q1HR Status: Active Protocol: Created 10/12/18 10:23 WHW8194 (Rec: 10/12/18 10:23 ZIB1643 ICU-M18) Document 10/12/18 11:51 ROW0431 (Rec: 10/12/18 11:51 GUS1122 ICU-M18) Document 10/12/18 14:00 RDR2769 (Rec: 10/12/18 15:04 HWV3129 ICU-C06) Document 10/12/18 15:00 JPM0876 (Rec: 10/12/18 15:58 UVA1786 ICU-C06) Document 10/12/18 19:00 IEZ0727 (Rec: 10/12/18 19:35 FXZ2131 ICU-M22) Document 10/12/18 20:00 RYJ0324 (Rec: 10/12/18 20:42 COM5533 ICU-C25) Document 10/12/18 21:00 AFX4077 (Rec: 10/12/18 22:35 SCW0142 ICU-M22) Document 10/12/18 22:00 YJN5199 (Rec: 10/12/18 22:56 PFJ3003 ICU-M22) Document 10/12/18 23:00 VZA9961 (Rec: 10/12/18 23:03 MOY4688 ICU-M22) Document 10/13/18 00:00 MMS7387 (Rec: 10/13/18 00:26 GYC1475 ICU-C25) Document 10/13/18 01:00 YUD4890 (Rec: 10/13/18 01:09 AQN5681 ICU-M22) Document 10/13/18 02:00 MOH9565 (Rec: 10/13/18 03:53 HFN8992 ICU-C25) Document 10/13/18 03:00 SUZ8344 (Rec: 10/13/18 03:53 QLR2779 ICU-C25) Document 10/13/18 04:00 YIP1992 (Rec: 10/13/18 05:12 UVW0799 ICU-C25) Document 10/13/18 05:00 UIV3988 (Rec: 10/13/18 05:13 RNO1110 ICU-C25) Document 10/13/18 06:00 ELH9400 (Rec: 10/13/18 06:22 RJU5135 ICU-C25) Document 10/13/18 07:00 ZSS9561 (Rec: 10/13/18 07:55 LCB0105 ICU-C15) Document 10/13/18 08:00 RII7626 (Rec: 10/13/18 10:17 SBM0967 ICU-C15) Document 10/13/18 09:00 ICB0902 (Rec: 10/13/18 10:17 OMP5135 ICU-C15) Document 10/13/18 10:00 OST1235 (Rec: 10/13/18 11:29 XGI9215 ICU-C15) Document 10/13/18 11:00 ICO5075 (Rec: 10/13/18 11:30 JAM1034 ICU-C15) Document 10/13/18 12:00 UZW1134 (Rec: 10/13/18 12:50 KFI8611 ICU-M22) Document 10/13/18 13:00 EOR4677 (Rec: 10/13/18 13:28 CZL1862 ICU-C15) Document 10/13/18 15:51 KJX2290 (Rec: 10/13/18 15:51 TTI9228 ICU-C15) Document 10/13/18 16:00 EMJ7831 (Rec: 10/13/18 17:01 FTQ5899 ICU-C15) Document 10/13/18 17:00 TAO6396 (Rec: 10/13/18 17:07 OZJ2853 ICU-C15) Document 10/13/18 17:39 GIT6368 (Rec: 10/13/18 17:40 SAP2455 ICU-M22) Document 10/13/18 18:00 YZM4701 (Rec: 10/13/18 18:44 QLM0322 ICU-C15) Document 10/13/18 19:00 RDU6640 (Rec: 10/13/18 20:28 KWJ3634 ICU-M22) Document 10/13/18 20:00 WGE5834 (Rec: 10/13/18 20:28 VKY1649 ICU-M22) Document 10/13/18 21:00 XFL9239 (Rec: 10/13/18 21:09 OJT2339 ICU-M22) Document 10/13/18 22:00 UJK6969 (Rec: 10/13/18 22:09 FHS7201 ICU-M22) Document 10/13/18 23:00 HLQ2867 (Rec: 10/13/18 23:23 LCT9285 ICU-C25) Document 10/14/18 00:00 IOW8690 (Rec: 10/14/18 00:02 VNN1288 ICU-C25) Document 10/14/18 01:00 KUX5331 (Rec: 10/14/18 01:02 EGC4903 ICU-M22) Document 10/14/18 02:00 CSZ2228 (Rec: 10/14/18 02:12 YFF8007 ICU-M22) Document 10/14/18 03:00 NCC0737 (Rec: 10/14/18 03:34 HHS4710 ICU-M22) Document 10/14/18 04:00 IGA0496 (Rec: 10/14/18 04:44 DKN7197 ICU-C25) Document 10/14/18 04:48 SEK2177 (Rec: 10/14/18 04:48 XEU5798 ICU-C25) Document 10/14/18 06:00 XOP0677 (Rec: 10/14/18 06:26 ZLO8248 ICU-M22) Document 10/14/18 07:00 VJN8152 (Rec: 10/14/18 07:53 TFT9911 ICU-C15) Document 10/14/18 08:00 USV3918 (Rec: 10/14/18 09:41 LGC9619 ICU-M22) Document 10/14/18 09:00 RVJ3713 (Rec: 10/14/18 09:42 WQY4990 ICU-M22) Document 10/14/18 10:00 QXU7454 (Rec: 10/14/18 10:29 KZJ5187 ICU-M22) Document 10/14/18 11:00 FLN2838 (Rec: 10/14/18 11:36 NIM8036 ICU-C15) Document 10/14/18 12:00 HSC3978 (Rec: 10/14/18 12:26 APX7119 ICU-M22) Document 10/14/18 13:00 SNU8841 (Rec: 10/14/18 13:44 SQQ6084 ICU-C15) Document 10/14/18 14:00 ARQ7528 (Rec: 10/14/18 14:16 YZR7123 ICU-M22) Document 10/14/18 15:00 EVW5850 (Rec: 10/14/18 15:04 EHZ1313 ICU-C15) Document 10/14/18 16:00 RLG2996 (Rec: 10/14/18 16:54 MMH9121 ICU-C15) Document 10/14/18 17:00 EXJ5399 (Rec: 10/14/18 17:32 WII0736 ICU-C15) Document 10/14/18 17:55 PVR0010 (Rec: 10/14/18 17:55 RAO1501 ICU-M22) Document 10/14/18 19:00 KIS2266 (Rec: 10/14/18 19:27 ZOK7905 ICU-M22) Document 10/14/18 20:00 CKD5331 (Rec: 10/14/18 20:34 XPI5767 ICU-M22) Document 10/14/18 21:00 XKD1781 (Rec: 10/14/18 21:52 JHS3493 ICU-M22) Document 10/14/18 22:00 YKL9054 (Rec: 10/14/18 22:48 RPQ9294 ICU-M22) Document 10/14/18 23:00 WEL1152 (Rec: 10/14/18 23:13 QEN0396 ICU-C25) Document 10/15/18 00:00 FHZ4395 (Rec: 10/15/18 01:25 VAQ7486 ICU-C25) Document 10/15/18 01:00 XGT6648 (Rec: 10/15/18 01:25 RYN2048 ICU-C25) Document 10/15/18 02:00 GFI0226 (Rec: 10/15/18 03:39 AZN0509 ICU-M22) Document 10/15/18 03:00 SGS1080 (Rec: 10/15/18 03:39 DMJ0454 ICU-M22) Document 10/15/18 04:00 OUF8364 (Rec: 10/15/18 06:12 XDY6542 ICU-M22) Document 10/15/18 05:00 GRP0077 (Rec: 10/15/18 06:12 FIW1989 ICU-M22) Document 10/15/18 06:00 HVJ1691 (Rec: 10/15/18 06:12 SSS3882 ICU-M22) Document 10/15/18 07:00 RAF4627 (Rec: 10/15/18 07:30 WMH8026 ICU-C16) Document 10/15/18 08:00 RKQ6761 (Rec: 10/15/18 08:08 FBL3879 ICU-M22) Document 10/15/18 09:00 LYU3204 (Rec: 10/15/18 09:21 UQN9902 ICU-C16) Document 10/15/18 10:00 LLE4598 (Rec: 10/15/18 10:06 ELO0046 ICU-C16) Document 10/15/18 10:30 OSN1041 (Rec: 10/15/18 10:31 GPN4478 ICU-M22) Document 10/15/18 11:00 VHY6029 (Rec: 10/15/18 11:40 YQN2742 ICU-C16) Document 10/15/18 12:00 PKM4698 (Rec: 10/15/18 12:05 MVL8603 ICU-C16) Document 10/15/18 12:55 NPD6900 (Rec: 10/15/18 12:55 MTJ1574 ICU-C16) Document 10/15/18 15:34 AGR5914 (Rec: 10/15/18 15:35 UPM7357 ICU-M22) Document 10/15/18 16:31 PHG9117 (Rec: 10/15/18 16:31 PNG8496 ICU-M22) Document 10/15/18 16:54 JYK4856 (Rec: 10/15/18 16:58 NJF3953 ICU-C25) Document 10/15/18 18:00 GHH5209 (Rec: 10/15/18 18:01 OWY4037 ICU-M22) Document 10/15/18 19:11 RUT6508 (Rec: 10/15/18 19:11 RLX4452 ICU-M22) Document 10/15/18 20:00 MCX7742 (Rec: 10/15/18 20:05 VGU6173 ICU-M22) Document 10/15/18 21:00 CZE7309 (Rec: 10/15/18 21:17 XUB1728 ICU-M22) Document 10/15/18 21:31 MXA6123 (Rec: 10/15/18 21:31 ZGT6506 ICU-M22) Document 10/15/18 22:04 VSY8909 (Rec: 10/15/18 22:04 UUQ3617 ICU-C11) Document 10/15/18 23:00 RCR2218 (Rec: 10/15/18 23:04 EWY5880 ICU-M22) Document 10/16/18 01:00 DCU0566 (Rec: 10/16/18 01:11 HTR3812 ICU-M22) Document 10/16/18 02:00 IOE3390 (Rec: 10/16/18 02:15 RDA9143 ICU-C15) Document 10/16/18 02:57 PFW3841 (Rec: 10/16/18 02:58 QZL7468 ICU-C15) Document 10/16/18 05:00 HIO7043 (Rec: 10/16/18 05:04 BPE5567 ICU-M22) Document 10/16/18 05:38 RHI5178 (Rec: 10/16/18 05:38 BBE9180 ICU-C15) Document 10/16/18 06:00 QCN2404 (Rec: 10/16/18 06:04 UAA7562 ICU-C15) Document 10/16/18 07:00 EUQ1089 (Rec: 10/16/18 10:48 SBP4250 ICU-C15) Document 10/16/18 08:00 FOG9462 (Rec: 10/16/18 10:48 XZV8178 ICU-C15) Document 10/16/18 09:00 EJT4231 (Rec: 10/16/18 10:49 AHP5141 ICU-C15) Document 10/16/18 10:00 FYM0843 (Rec: 10/16/18 10:49 TKN1486 ICU-C15) Document 10/16/18 11:00 MBU0595 (Rec: 10/16/18 11:06 EDL8672 ICU-C15) Document 10/16/18 11:00 QYS5025 (Rec: 10/16/18 15:19 HUA7218 ICU-C15) Document 10/16/18 12:00 WLR6551 (Rec: 10/16/18 13:50 DDS8436 ICU-M22) Document 10/16/18 13:48 MOU0912 (Rec: 10/16/18 13:50 YQZ4582 ICU-M22) Document 10/16/18 15:00 OSO3775 (Rec: 10/16/18 17:20 VVD3280 ICU-M32) Document 10/16/18 16:00 VIC5493 (Rec: 10/16/18 17:21 NVG4037 ICU-M32) Document 10/16/18 16:00 KJF0787 (Rec: 10/16/18 17:22 VZC1753 ICU-M32) Document 10/16/18 17:00 PUX8142 (Rec: 10/16/18 17:21 YPL3861 ICU-M32) Document 10/16/18 18:00 ILQ4136 (Rec: 10/16/18 18:05 LHI7077 ICU-M32) Document 10/16/18 22:26 WSQ0479 (Rec: 10/16/18 22:26 ENX6706 ICU-M22) Document 10/17/18 01:00 YQT7566 (Rec: 10/17/18 02:14 LNL1996 ICU-C25) Document 10/17/18 03:00 VVW6860 (Rec: 10/17/18 03:16 SPU4229 ICU-C25) Document 10/17/18 03:55 YGD6470 (Rec: 10/17/18 03:55 UFU5460 ICU-C25) Document 10/17/18 05:00 XOD7625 (Rec: 10/17/18 05:06 LOU9467 ICU-C25) Document 10/17/18 06:00 CLL1024 (Rec: 10/17/18 06:22 CXF1221 ICU-M22) Document 10/17/18 06:22 CWB7011 (Rec: 10/17/18 06:22 FRN3385 ICU-M22) Document 10/17/18 08:00 OKI5673 (Rec: 10/17/18 15:37 UGJ6582 ICU-C15) Document 10/17/18 10:00 KQK5977 (Rec: 10/17/18 15:39 QLP6021 ICU-C15) Document 10/17/18 11:00 UXV2565 (Rec: 10/17/18 15:40 GLA4272 ICU-C15) Document 10/17/18 12:00 SKI6464 (Rec: 10/17/18 15:40 EHK0037 ICU-C15) Document 10/17/18 13:00 VNJ5628 (Rec: 10/17/18 15:40 NDS6120 ICU-C15) Document 10/17/18 14:00 TOY8069 (Rec: 10/17/18 15:40 WGK8627 ICU-C15) Document 10/17/18 15:00 ERH2058 (Rec: 10/17/18 18:16 FDH6520 ICU-C15) Document 10/17/18 16:00 BEL8318 (Rec: 10/17/18 18:16 QMZ5418 ICU-C15) Document 10/17/18 17:00 YSL8617 (Rec: 10/17/18 18:16 LLD7823 ICU-C15) Document 10/17/18 18:00 HQR4706 (Rec: 10/17/18 18:58 QTR0388 ICU-C15) Document 10/17/18 19:00 CXC8936 (Rec: 10/17/18 19:29 TVI0929 ICU-M22) Document 10/17/18 20:00 QFN5847 (Rec: 10/17/18 21:08 WBU1477 ICU-C16) Document 10/17/18 21:00 MQC6342 (Rec: 10/17/18 21:40 FYA2938 ICU-M22) Document 10/17/18 22:00 FLV9068 (Rec: 10/17/18 23:20 QHJ5747 ICU-C16) Document 10/17/18 23:00 XGJ3084 (Rec: 10/17/18 23:20 KFR1002 ICU-C16) Document 10/17/18 23:54 YSN2737 (Rec: 10/17/18 23:54 QWB3978 ICU-M22) Document 10/18/18 01:00 OJX2942 (Rec: 10/18/18 04:01 OQU1332 ICU-M22) Document 10/18/18 02:00 WKS7874 (Rec: 10/18/18 04:01 KDA2309 ICU-M22) Document 10/18/18 03:00 OVS5435 (Rec: 10/18/18 04:01 WUZ1715 ICU-M22) Document 10/18/18 04:00 TFM0131 (Rec: 10/18/18 04:01 CIV1770 ICU-M22) Document 10/18/18 04:00 MWV5415 (Rec: 10/18/18 05:21 VOU4861 ICU-C16) Document 10/18/18 06:00 HNW7104 (Rec: 10/18/18 06:02 NEM9301 ICU-M22) Document 10/18/18 07:00 EMV5683 (Rec: 10/18/18 10:00 MLF3782 ICU-C15) Document 10/18/18 08:00 UAB9327 (Rec: 10/18/18 10:00 LOY5957 ICU-C15) Document 10/18/18 09:00 LUQ9422 (Rec: 10/18/18 10:00 RCM4508 ICU-C15) Document 10/18/18 10:00 UFZ6762 (Rec: 10/18/18 10:38 ANF8265 ICU-C15) Document 10/18/18 11:00 ATH3359 (Rec: 10/18/18 11:15 HWT6412 ICU-M22) Document 10/18/18 12:00 GGQ7499 (Rec: 10/18/18 15:31 SLN9316 ICU-C15) Document 10/18/18 13:00 ZJK9501 (Rec: 10/18/18 15:31 FCZ8075 ICU-C15) Document 10/18/18 14:00 KON9392 (Rec: 10/18/18 15:31 IJL7920 ICU-C15) Document 10/18/18 15:00 NAM1117 (Rec: 10/18/18 15:31 EXI0358 ICU-C15) Document 10/18/18 16:00 RIZ3401 (Rec: 10/18/18 17:12 JJK9637 ICU-C15) Document 10/18/18 17:00 WFR1050 (Rec: 10/18/18 17:12 QUQ3013 ICU-C15) Document 10/18/18 18:00 ECD3220 (Rec: 10/18/18 19:13 COM4069 ICU-C15) Document 10/18/18 19:00 YUC2261 (Rec: 10/18/18 19:13 CKT5806 ICU-C15) Document 10/18/18 20:00 VZO5961 (Rec: 10/18/18 21:24 NDT2919 ICU-M22) Document 10/18/18 21:00 KJP6701 (Rec: 10/18/18 21:24 AQP7546 ICU-M22) Document 10/18/18 21:43 CCJ7601 (Rec: 10/18/18 21:43 RTK9272 ICU-M22) Document 10/18/18 22:00 EPW9554 (Rec: 10/18/18 22:02 PFB3354 ICU-M22) Document 10/18/18 23:00 BVN3846 (Rec: 10/19/18 00:02 ZTJ8890 ICU-L03) Document 10/19/18 00:00 BUR4603 (Rec: 10/19/18 01:22 OIB2706 ICU-L03) Document 10/19/18 01:00 PPQ8108 (Rec: 10/19/18 01:22 LUG6801 ICU-L03) Document 10/19/18 02:00 ZQW9970 (Rec: 10/19/18 04:40 GHM4773 ICU-L03) Document 10/19/18 03:00 HGO5046 (Rec: 10/19/18 04:40 NYI0917 ICU-L03) Document 10/19/18 04:00 BTV7161 (Rec: 10/19/18 04:40 GSD5076 ICU-L03) Document 10/19/18 05:00 GZB2887 (Rec: 10/19/18 05:04 FTO8053 ICU-M22) Document 10/19/18 06:00 UXW3413 (Rec: 10/19/18 06:52 IXL3579 ICU-L03) Document 10/19/18 07:00 ZNT5267 (Rec: 10/19/18 07:09 ETB4743 ICU-M22) Document 10/19/18 08:00 HKT1394 (Rec: 10/19/18 09:48 CWG8240 ICU-C12) Document 10/19/18 09:00 VRF1191 (Rec: 10/19/18 09:57 LOY8808 ICU-C12) Document 10/19/18 09:57 TCJ4571 (Rec: 10/19/18 09:57 VIX6087 ICU-C12) Document 10/19/18 11:00 DVJ0460 (Rec: 10/19/18 11:40 WZM7053 ICU-C12) Document 10/19/18 12:00 HTE3493 (Rec: 10/19/18 12:20 GON0581 ICU-C12) Document 10/19/18 14:00 ZZF0152 (Rec: 10/19/18 14:38 OCU8143 ICU-C12) Document 10/19/18 15:00 NTL3915 (Rec: 10/19/18 16:42 PEI3534 ICU-M22) Document 10/19/18 16:00 DIW8777 (Rec: 10/19/18 16:42 LGM1164 ICU-M22) Document 10/19/18 17:00 PHJ3636 (Rec: 10/19/18 18:11 BUB7349 ICU-C25) Document 10/19/18 18:00 IEF4423 (Rec: 10/19/18 18:11 JDQ2114 ICU-C25) Document 10/19/18 20:00 UPY7906 (Rec: 10/19/18 20:35 OND2125 ICU-M22) Document 10/19/18 22:00 NHG4146 (Rec: 10/19/18 22:20 QNB8405 ICU-M22) Document 10/19/18 23:00 RAE1013 (Rec: 10/19/18 23:48 PBV6594 ICU-M22) Document 10/20/18 00:00 EFH1779 (Rec: 10/20/18 00:34 OVG7381 ICU-L03) Document 10/20/18 01:00 CXA2726 (Rec: 10/20/18 01:35 EYW2958 ICU-L03) Document 10/20/18 02:00 ITH4352 (Rec: 10/20/18 02:10 BPJ8975 ICU-L03) Document 10/20/18 03:00 HUQ2542 (Rec: 10/20/18 03:23 BGZ4038 ICU-L03) Document 10/20/18 04:00 QXF9347 (Rec: 10/20/18 05:57 BZN4050 ICU-L03) Document 10/20/18 05:00 LXK3092 (Rec: 10/20/18 06:08 IFR1224 ICU-L03) Document 10/20/18 06:00 FVC8781 (Rec: 10/20/18 06:15 MZD1979 ICU-L03) Document 10/20/18 07:00 HVM2972 (Rec: 10/20/18 07:19 UMP4728 ICU-L03) Document 10/20/18 08:00 DFX4237 (Rec: 10/20/18 09:24 FEE8083 ICU-M22) Document 10/20/18 09:00 FNF6091 (Rec: 10/20/18 09:24 XPB6077 ICU-M22) Document 10/20/18 10:15 WDR6828 (Rec: 10/20/18 10:40 HRV0043 ICU-C15) Document 10/20/18 11:00 IUO0566 (Rec: 10/20/18 13:16 SAW5176 ICU-C15) Document 10/20/18 12:00 OJP6537 (Rec: 10/20/18 13:16 ZGU0946 ICU-C15) Document 10/20/18 13:00 UKZ9951 (Rec: 10/20/18 13:16 DOY4101 ICU-C15) Document 10/20/18 14:00 FWE4623 (Rec: 10/20/18 16:47 DGT6511 ICU-C15) Document 10/20/18 15:00 BJE6169 (Rec: 10/20/18 16:47 LYQ7401 ICU-C15) Document 10/20/18 16:00 AGY1795 (Rec: 10/20/18 16:47 XIQ5374 ICU-C15) Document 10/20/18 16:48 GQM6173 (Rec: 10/20/18 16:48 PHY3628 ICU-C15) Document 10/20/18 18:00 BJK5327 (Rec: 10/20/18 18:20 UCK7713 ICU-C15) Document 10/20/18 19:00 KCX2502 (Rec: 10/20/18 20:39 YEW1779 ICU-C15) Document 10/20/18 20:00 PDK2827 (Rec: 10/20/18 20:39 ELS9569 ICU-C15) Document 10/20/18 21:00 ITI9842 (Rec: 10/20/18 22:03 LAG4498 ICU-M22) Document 10/20/18 22:00 QOI3826 (Rec: 10/20/18 22:03 ZKC6697 ICU-M22) Document 10/20/18 23:00 NXD8399 (Rec: 10/21/18 00:18 QGW7972 ICU-C15) Document 10/21/18 00:00 ZGT3815 (Rec: 10/21/18 01:10 GQM1424 ICU-C15) Document 10/21/18 01:00 FKR5520 (Rec: 10/21/18 01:35 IJR8238 ICU-C15) Document 10/21/18 02:00 SJL1370 (Rec: 10/21/18 02:55 YCM1552 ICU-C15) Document 10/21/18 03:00 WZM6017 (Rec: 10/21/18 03:17 QVK2837 ICU-C15) Document 10/21/18 04:00 DJW5313 (Rec: 10/21/18 05:05 WUJ4028 ICU-C15) Document 10/21/18 05:00 [id number] (Rec: 10/21/18 05:11 [id number] ICU-C15) Document 10/21/18 06:00 [id number] (Rec: 10/21/18 06:34 [id number] ICU-C15) Document 10/21/18 08:00 [id number] (Rec: 10/21/18 08:50 [id number] ICU-M22) Document 10/21/18 10:00 [id number] (Rec: 10/21/18 10:48 [id number] ICU-C15) Document 10/21/18 11:00 [id number] (Rec: 10/21/18 11:12 [id number] ICU-C15) Document 10/21/18 12:00 [id number] (Rec: 10/21/18 12:27 [id number] ICU-C15) Document 10/21/18 13:00 [id number] (Rec: 10/21/18 13:04 [id number] ICU-C15) Document 10/21/18 14:00 [id number] (Rec: 10/21/18 14:00 [id number] ICU-C15) Document 10/21/18 14:54 [id number] (Rec: 10/21/18 14:54 [id number] ICU-C15) Document 10/21/18 16:00 [id number] (Rec: 10/21/18 16:55 [id number] ICU-M32) Document 10/21/18 17:58 [id number] (Rec: 10/21/18 17:58 [id number] ICU-M22) Document 10/21/18 19:00 [id number] (Rec: 10/21/18 20:33 [id number] ICU-C25) Document 10/21/18 21:00 [id number] (Rec: 10/21/18 21:35 [id number] ICU-M22) Document 10/21/18 23:00 [id number] (Rec: 10/21/18 23:39 [id number] ICU-C25) Document 10/22/18 00:00 [id number] (Rec: 10/22/18 01:22 [id number] ICU-C25) Document 10/22/18 01:00 [id number] (Rec: 10/22/18 01:23 [id number] ICU-C25) Document 10/22/18 02:00 [id number] (Rec: 10/22/18 02:17 [id number] ICU-C25) Document 10/22/18 03:00 [id number] (Rec: 10/22/18 04:49 [id number] ICU-C25) Document 10/22/18 04:00 [id number] (Rec: 10/22/18 05:46 [id number] ICU-C25) Document 10/22/18 05:00 [id number] (Rec: 10/22/18 05:30 [id number] ICU-M22) Document 10/22/18 06:00 [id number] (Rec: 10/22/18 06:56 [id number] ICU-C12) Document 10/22/18 07:42 [id number] (Rec: 10/22/18 07:42 [id number] ICU-M22) Document 10/22/18 08:52 [id number] (Rec: 10/22/18 08:54 [id number] ICU-M22) Labs: Laboratory Results - last 24 hr 10/21/18 10/21/18 10/22/18 13:07 19:16 01:02 WBC RBC Hgb Hct MCV MCH MCHC RDW Plt Count MPV Neut % (Auto) Lymph % (Auto) [place] % (Auto) Eos % (Auto) Baso % (Auto) Absolute Neuts (auto) Absolute Lymphs (auto) Absolute Monos (auto) Absolute Eos (auto) Absolute Basos (auto) Absolute Nucleated RBC Nucleated RBC % Sodium Potassium Chloride Carbon Dioxide Anion Gap BUN Creatinine Est GFR ( Amer) Est GFR (Non-Af Amer) BUN/Creatinine Ratio Glucose POC Glucose (mg/dL) 122 H 124 H 115 H Calcium Phosphorus Magnesium 10/22/18 10/22/18 10/22/18 04:35 04:35 07:01 WBC 11.4 H RBC 4.16 Hgb 13.1 L Hct 39 L MCV 94 MCH 32 H MCHC 34 RDW 15 Plt Count 425 MPV 8.4 Neut % (Auto) 57.2 Lymph % (Auto) 26.0 [place] % (Auto) 15.4 Eos % (Auto) 1.1 Baso % (Auto) 0.3 Absolute Neuts (auto) 6.5 Absolute Lymphs (auto) 3.0 Absolute Monos (auto) 1.8 H Absolute Eos (auto) 0.1 Absolute Basos (auto) 0 Absolute Nucleated RBC 0 Nucleated RBC % 0.1 Sodium 137 Potassium 3.1 L Chloride 106 Carbon Dioxide 23 Anion Gap 8 BUN 8 Creatinine 0.53 L Est GFR ( Amer) 194.6 Est GFR (Non-Af Amer) 160.8 BUN/Creatinine Ratio 15.1 Glucose 89 POC Glucose (mg/dL) 100 Calcium 8.6 Phosphorus 3.2 Magnesium 1.9 Studies: CXR 10/23/15: improved parenchymal markings. No acute cardiopulmonary abnormalities appreciated Nutrition: attempting bedside swallow in order to advance oral intake Impression: 58 year old male with history of ETOH abuse requiring intubation for severe withdrawal and agitation. # Altered mental status with agitation ETOH withdrawal, mood d/o, hepatic encepalopathy # history of chronic alcohol abuse # Tachycardia- hypovolemia vs agitation # Hypoxic Respiratory Failure 2/2 ETOH Withdrawal now extubated 10/20 # Influenza Positive s/p tx # CAP s/p therapy # Diarrhea # Electrolyte derrangements- hypokalemia Plan: # Altered mental status with agitation ETOH withdrawal, mood d/o, hepatic encephalopathy - suspect at this point he is out of the withdrawal period - prn zyprexa for agitation. - continue with rifaxamin- on hold due to patient refusal to take oral intake - minimize precedex to only if needed - melatonin 3 mg at bedtime # history of chronic alcohol abuse - MVI, folic acid, thiamine- on hold due to patient refusal to take oral intake # Tachycardia- hypovolemia vs agitation - will attempt to start patient on D5NS with 20meq KCL for nutritional support. He is high risk for pulling out his lines # Hypoxic Respiratory Failure 2/2 ETOH Withdrawal now extubated 10/20 # Influenza Positive s/p tx # -stable respiratory status on RA # Diarrhea - r/o infection- check C-diff, stool culture, and fecal WBC - if above negative, will start patient on imodium # Electrolyte derangements- hypokalemia - s/p 60mEq KCL x 1 - D5NS with 20 meq KCL infusion # HTN - Continue clonidine patch, norvasc and MARILU - Hydralazine and metoprolol PRN, increase BB to Q4h DVT Prophy - HSQ and SCDs Code Status - DNR Critical Care Time: 35 minutes
[2018-10-22] MEDS ORDERED: Melatonin 3 MG TAB PO PRN (11:00)
[2018-10-22] MEDS: D5W NS 0.9% 20Meq KCL 1000 ML* 1,000 ML IV SCH ×2 (11:12→22:52)
[2018-10-22] MEDS: diPHENhydraMINE IV* 50 MG/ML 1 ml VIAL (BENADRYL) IV PRN (12:51)
[2018-10-22] MEDS: QUEtiapine TAB* 25 MG G TUBE SCH (13:27)
[2018-10-22] MEDS: Thiamine TAB* 100 MG TAB G TUBE SCH (14:40)
[2018-10-22] MEDS: Folic Acid TAB* 1 MG NG TUBE SCH (14:40)
[2018-10-22] MEDS: amLODIPine TAB* 5 MG PO SCH (14:40)
[2018-10-22] MEDS: Lisinopril TAB* 10 MG PO SCH (14:40)
[2018-10-22] MEDS: Aspirin 81 mg CHEW TAB* 81 MG TAB.CHEW PO SCH (14:40)
[2018-10-22] MEDS: Metoprolol Tartrate IV* 1 MG/ML 5 ML VIAL IV PRN ×2 (17:27→20:54)
[2018-10-22] MEDS ORDERED: QUEtiapine TAB* 25 MG PO ONE (21:00)
[2018-10-23] MEDS: DEXMEDETOMIDINE IVPB SCH (00:50)
[2018-10-23] MEDS: NS 0.9% IVPB SCH (00:50)
[2018-10-23] MEDS ORDERED: Morphine INJ* 2 MG/ML 1 ML SYRINGE (TWO MG - NEW SYRINGE VERSION) IV PRN (02:38)
[2018-10-23] MEDS: D5W NS 0.9% 20Meq KCL 1000 ML* 1,000 ML IV SCH (08:44)
[2018-10-23] MEDS: Rifaximin 20 mg/mL Suspension (Pharmacy to Compound) G TUBE SCH (08:48)
[2018-10-23] MEDS: Lisinopril TAB* 10 MG PO SCH (08:49)
[2018-10-23] MEDS: Folic Acid TAB* 1 MG NG TUBE SCH (08:49)
[2018-10-23] MEDS: Thiamine TAB* 100 MG TAB G TUBE SCH (08:49)
[2018-10-23] MEDS: Aspirin 81 mg CHEW TAB* 81 MG TAB.CHEW PO SCH (08:49)
[2018-10-23] MEDS: amLODIPine TAB* 5 MG PO SCH (08:49)
[2018-10-23] MEDS: Multivitamins ADULT w/MIN LIQ* 15 ML UDC NG TUBE SCH (08:49)
[2018-10-23] MEDS: Heparin VIAL(*) 5000 UNITS/ML VIAL (FIVE THOUSAND) SUBCUT SCH ×2 (08:50→21:55)
[2018-10-23] MEDS: diPHENhydraMINE IV* 50 MG/ML 1 ml VIAL (BENADRYL) IV PRN (09:00)
[2018-10-23] MEDS ORDERED: Melatonin 3 MG TAB PO PRN (10:09)
[2018-10-23] MEDS: Lansoprazole SUSP* ORALSYR 3 MG/ML PO SCH (11:36)
--- NOTE | 2018-10-23 11:44 | PN ---
Date of Service: 10/23/18 Critical Care Services: 58 M being managed in the ICU for AMS- encephalopathy, agitation on precedex 1.2 this am. He was off precedex all day yesterday and did well. However, last night due to violent behavior to the staff, precedex was restarted. Patient seen and examined at the bedside Denies any current complains Vital Signs: Temp Pulse Resp BP SpO2 FiO2 99.1 F 87 19 173/92 95 50 10/22/18 13:01 10/23/18 10:00 10/23/18 10:00 10/23/18 10:10/23/18 10:00 10/23 07:45 Physical Exam: Gen:NAD HEENT: Atraumatic, normocephalic. Neck supple, no thyromegaly. Mucous membranes are moist Lungs: Clear bilaterally Cardiac: Normal S1, S2, no murmurs or rubs, RSR to tachycardic Abdomen: Soft, non-tender, positive BSx4 quad Extremities: No clubbing cyanosis or edema Neuro: awake and alert. Oriented to name. No focal deficits Fluid Balance (Past 24 Hours): I= O= Net Intake & Output 10/21/18 10/22/18 10/23/18 10/24/18 06:59 06:59 06:59 06:59 Intake Total 2634 2407 2862.1 0 Output Total 3518 1992 1960 800 Balance -884 415 902.1 -800 Weight 154 lb 1.65 oz 153 lb 10.595 oz 150 lb 5.684 oz Intake: IV Fluids 1397 1851 2316 Banana bag 1082 918 D5NS 20K 2014 NS (0.9%) 54 700 301 abx 261 233 IVPB 226 117 200 KCL 200 abx 226 117 Medicated IV 220 215 316.1 CC - Dexmedetomidine/ 220 215 316.1 Precedex Oral 0 0 30 0 Tube Feeding 671 124 NG Tube Irrigate Amount 120 100 Output: Urine 200 1100 800 Delgado 2818 1991 860 Liquid Stool 500 Tube Feeding Residual 0 0 0 Amount Wasted Other: Estimated Void Small Large # Bowel Movements 1 Estimated Stool Amount Medium # Voids 1 1 ADLs: Meal Record Start: 10/09/18 22: 18 Freq: DAILY@0900,1400,1800 Status: Complete Protocol: Created 10/09/18 22:18 System (Rec: 10/09/18 22:18 System MED-C05) Document 10/10/18 09:00 XFV5978 (Rec: 10/10/18 09:14 QIC0521 MED-C11) Document 10/10/18 14:00 LXY5336 (Rec: 10/10/18 15:51 BLD2701 MED-M09) Document 10/10/18 18:00 ARB0245 (Rec: 10/10/18 18:51 CIG6035 MED-C04) Document 10/11/18 09:00 GGL5816 (Rec: 10/11/18 12:25 YHP2152 MED-C04) Document 10/11/18 14:00 FIZ4266 (Rec: 10/11/18 17:20 RGR8026 MED-C04) ADLs: Meal Record Start: 10/12/18 10: 23 Freq: Status: Active Protocol: Created 10/12/18 10:23 UYG2225 (Rec: 10/12/18 10:23 SQU4948 ICU-M18) Document 10/12/18 18:00 MGH2944 (Rec: 10/12/18 20:47 TCW0633 ICU-C25) Document 10/13/18 09:00 HFN5571 (Rec: 10/13/18 11:28 UYM7910 ICU-C15) Document 10/13/18 13:00 ANH8604 (Rec: 10/13/18 13:28 QML1311 ICU-C15) Document 10/13/18 18:00 HAT0564 (Rec: 10/13/18 18:44 SHR1014 ICU-C15) Document 10/14/18 09:00 KZF7663 (Rec: 10/14/18 11:17 FOJ2437 ICU-C15) Document 10/14/18 13:00 UAA7136 (Rec: 10/14/18 13:44 VWP9294 ICU-C15) Document 10/14/18 18:00 FEA4114 (Rec: 10/14/18 18:02 PYH5110 ICU-C15) Document 10/15/18 09:00 MPK3995 (Rec: 10/15/18 09:27 ZGG6828 ICU-C16) Document 10/15/18 13:00 EWN2315 (Rec: 10/15/18 14:47 TBU0817 ICU-C16) Document 10/15/18 17:28 JVN1315 (Rec: 10/15/18 17:28 HPG5558 ICU-C25) Intake and Output Start: 10/09/18 14: 36 Freq: Status: Active Protocol: Created 10/09/18 14:36 System (Rec: 10/09/18 14:36 System ED-C24) Document 10/13/18 11:30 XYA4826 (Rec: 10/13/18 12:33 WEU7807 ICU-M22) Intake and Output Start: 10/09/18 22: 18 Freq: DAILY@0600,1400,2200 Status: Complete Protocol: Created 10/09/18 22:18 System (Rec: 10/09/18 22:18 System MED-C05) Document 10/10/18 05:58 DUI5313 (Rec: 10/10/18 05:59 WZX8419 MED-C02) Document 10/10/18 13:42 KZC6328 (Rec: 10/10/18 13:42 UEY9554 MED-C11) Document 10/10/18 21:51 ZRG9971 (Rec: 10/10/18 21:52 JAY5878 MED-C09) Document 10/11/18 03:27 ZAA1476 (Rec: 10/11/18 03:28 KVO3764 MED-C09) Document 10/11/18 14:32 RQT3108 (Rec: 10/11/18 14:32 LJK9885 MED-C16) Document 10/11/18 22:00 SLW8022 (Rec: 10/12/18 00:45 IUH8023 MED-C07) Document 10/12/18 05:50 SSO9928 (Rec: 10/12/18 05:50 GKL0663 MED-C07) Intake and Output Start: 10/12/18 10: 23 Freq: Q4HR Status: Active Protocol: Created 10/12/18 10:23 ZTF8090 (Rec: 10/12/18 10:23 HYD2893 ICU-M18) Document 10/12/18 11:51 MLD0810 (Rec: 10/12/18 11:51 GOO7738 ICU-M18) Document 10/12/18 14:00 KKU6393 (Rec: 10/12/18 15:04 FIK6157 ICU-C06) Document 10/12/18 15:00 JXP3776 (Rec: 10/12/18 15:58 HKK7607 ICU-C06) Document 10/12/18 19:00 SYT0732 (Rec: 10/12/18 19:35 RKE2551 ICU-M22) Document 10/12/18 20:00 YEY7442 (Rec: 10/12/18 20:42 XBR4113 ICU-C25) Document 10/12/18 21:00 JVX6947 (Rec: 10/12/18 22:35 NIO3651 ICU-M22) Document 10/12/18 22:00 HJT7905 (Rec: 10/12/18 22:56 LLH7166 ICU-M22) Document 10/12/18 23:00 NZS0564 (Rec: 10/12/18 23:03 KDL3428 ICU-M22) Document 10/13/18 00:00 WBJ8415 (Rec: 10/13/18 00:26 UMK8144 ICU-C25) Document 10/13/18 01:00 YGT5720 (Rec: 10/13/18 01:09 ZPF0544 ICU-M22) Document 10/13/18 02:00 BXP1897 (Rec: 10/13/18 03:53 TMM6639 ICU-C25) Document 10/13/18 03:00 KXE8680 (Rec: 10/13/18 03:53 JOJ5488 ICU-C25) Document 10/13/18 04:00 KOC2034 (Rec: 10/13/18 05:12 AHO9976 ICU-C25) Document 10/13/18 05:00 YGG4564 (Rec: 10/13/18 05:13 ZSY3440 ICU-C25) Document 10/13/18 06:00 FEG9243 (Rec: 10/13/18 06:22 BKR5548 ICU-C25) Document 10/13/18 07:00 IVI5521 (Rec: 10/13/18 07:55 PEE0056 ICU-C15) Document 10/13/18 08:00 MQP6706 (Rec: 10/13/18 10:17 FSA3606 ICU-C15) Document 10/13/18 09:00 MAI1965 (Rec: 10/13/18 10:17 PIV8549 ICU-C15) Document 10/13/18 10:00 STY6563 (Rec: 10/13/18 11:29 BXM2084 ICU-C15) Document 10/13/18 11:00 CEQ5462 (Rec: 10/13/18 11:30 IPJ3118 ICU-C15) Document 10/13/18 12:00 ONV0568 (Rec: 10/13/18 12:50 LOV4402 ICU-M22) Document 10/13/18 13:00 UPN1893 (Rec: 10/13/18 13:28 UBX5263 ICU-C15) Document 10/13/18 15:51 DXP8598 (Rec: 10/13/18 15:51 XUV2832 ICU-C15) Document 10/13/18 16:00 XSU0860 (Rec: 10/13/18 17:01 BVT1523 ICU-C15) Document 10/13/18 17:00 ANM8379 (Rec: 10/13/18 17:07 EMG9564 ICU-C15) Document 10/13/18 17:39 UDT4062 (Rec: 10/13/18 17:40 DBW6367 ICU-M22) Document 10/13/18 18:00 BEU6992 (Rec: 10/13/18 18:44 DXT2113 ICU-C15) Document 10/13/18 19:00 NYG4662 (Rec: 10/13/18 20:28 HCD2303 ICU-M22) Document 10/13/18 20:00 LGH1051 (Rec: 10/13/18 20:28 ABH5909 ICU-M22) Document 10/13/18 21:00 YCF9639 (Rec: 10/13/18 21:09 OYT6203 ICU-M22) Document 10/13/18 22:00 NJP8821 (Rec: 10/13/18 22:09 DVR9946 ICU-M22) Document 10/13/18 23:00 FSF3070 (Rec: 10/13/18 23:23 GSE4387 ICU-C25) Document 10/14/18 00:00 UHC0022 (Rec: 10/14/18 00:02 OVK8380 ICU-C25) Document 10/14/18 01:00 CNY3746 (Rec: 10/14/18 01:02 PDQ0373 ICU-M22) Document 10/14/18 02:00 LPV1939 (Rec: 10/14/18 02:12 TFT9437 ICU-M22) Document 10/14/18 03:00 FDR6680 (Rec: 10/14/18 03:34 KYN8047 ICU-M22) Document 10/14/18 04:00 JCY9964 (Rec: 10/14/18 04:44 VHS5679 ICU-C25) Document 10/14/18 04:48 GZH5354 (Rec: 10/14/18 04:48 HPJ1045 ICU-C25) Document 10/14/18 06:00 NOG5228 (Rec: 10/14/18 06:26 ETS9071 ICU-M22) Document 10/14/18 07:00 HGJ4467 (Rec: 10/14/18 07:53 IGR1959 ICU-C15) Document 10/14/18 08:00 UED5193 (Rec: 10/14/18 09:41 PVR9089 ICU-M22) Document 10/14/18 09:00 KBJ4628 (Rec: 10/14/18 09:42 ULV8032 ICU-M22) Document 10/14/18 10:00 IUP3657 (Rec: 10/14/18 10:29 BZZ1044 ICU-M22) Document 10/14/18 11:00 SXA2836 (Rec: 10/14/18 11:36 AIS4636 ICU-C15) Document 10/14/18 12:00 SPB5891 (Rec: 10/14/18 12:26 SRA6775 ICU-M22) Document 10/14/18 13:00 VCA9880 (Rec: 10/14/18 13:44 LYS4570 ICU-C15) Document 10/14/18 14:00 SRI4578 (Rec: 10/14/18 14:16 RKB3514 ICU-M22) Document 10/14/18 15:00 APU4206 (Rec: 10/14/18 15:04 IRO7016 ICU-C15) Document 10/14/18 16:00 VMC9676 (Rec: 10/14/18 16:54 ERS7549 ICU-C15) Document 10/14/18 17:00 RDE3663 (Rec: 10/14/18 17:32 ONT0835 ICU-C15) Document 10/14/18 17:55 IHL8120 (Rec: 10/14/18 17:55 LXO6271 ICU-M22) Document 10/14/18 19:00 PNH5446 (Rec: 10/14/18 19:27 KLF6826 ICU-M22) Document 10/14/18 20:00 QAT2300 (Rec: 10/14/18 20:34 KFA7705 ICU-M22) Document 10/14/18 21:00 XXA6882 (Rec: 10/14/18 21:52 XUN1247 ICU-M22) Document 10/14/18 22:00 WVZ6835 (Rec: 10/14/18 22:48 RYO2221 ICU-M22) Document 10/14/18 23:00 OZM0679 (Rec: 10/14/18 23:13 IZH8416 ICU-C25) Document 10/15/18 00:00 ZFZ3754 (Rec: 10/15/18 01:25 JQV6437 ICU-C25) Document 10/15/18 01:00 CIE9284 (Rec: 10/15/18 01:25 CWL7382 ICU-C25) Document 10/15/18 02:00 WWU1944 (Rec: 10/15/18 03:39 WDZ8210 ICU-M22) Document 10/15/18 03:00 ZLM8911 (Rec: 10/15/18 03:39 EZF8308 ICU-M22) Document 10/15/18 04:00 EHZ1581 (Rec: 10/15/18 06:12 OYB1338 ICU-M22) Document 10/15/18 05:00 FSA9002 (Rec: 10/15/18 06:12 IBF2348 ICU-M22) Document 10/15/18 06:00 LKH6502 (Rec: 10/15/18 06:12 VVU9649 ICU-M22) Document 10/15/18 07:00 LVI5412 (Rec: 10/15/18 07:30 BCM4130 ICU-C16) Document 10/15/18 08:00 DNT7982 (Rec: 10/15/18 08:08 XQA9812 ICU-M22) Document 10/15/18 09:00 EMV9882 (Rec: 10/15/18 09:21 NST7267 ICU-C16) Document 10/15/18 10:00 JLI7223 (Rec: 10/15/18 10:06 RRT4802 ICU-C16) Document 10/15/18 10:30 SZI7391 (Rec: 10/15/18 10:31 VTE9929 ICU-M22) Document 10/15/18 11:00 HHL5425 (Rec: 10/15/18 11:40 CLS0645 ICU-C16) Document 10/15/18 12:00 JBE6828 (Rec: 10/15/18 12:05 VLA2750 ICU-C16) Document 10/15/18 12:55 DZH5584 (Rec: 10/15/18 12:55 TLU6250 ICU-C16) Document 10/15/18 15:34 NBH7384 (Rec: 10/15/18 15:35 CBH7167 ICU-M22) Document 10/15/18 16:31 TRB1262 (Rec: 10/15/18 16:31 JRP8024 ICU-M22) Document 10/15/18 16:54 FBW1517 (Rec: 10/15/18 16:58 VWI2264 ICU-C25) Document 10/15/18 18:00 BKX2487 (Rec: 10/15/18 18:01 WVY4513 ICU-M22) Document 10/15/18 19:11 CLR6051 (Rec: 10/15/18 19:11 FSJ3699 ICU-M22) Document 10/15/18 20:00 OUF1783 (Rec: 10/15/18 20:05 WKB5826 ICU-M22) Document 10/15/18 21:00 XFZ0729 (Rec: 10/15/18 21:17 KAZ6826 ICU-M22) Document 10/15/18 21:31 DJC3465 (Rec: 10/15/18 21:31 KRG9897 ICU-M22) Document 10/15/18 22:04 GFW7191 (Rec: 10/15/18 22:04 AHM8639 ICU-C11) Document 10/15/18 23:00 MGW7851 (Rec: 10/15/18 23:04 BPX1073 ICU-M22) Document 10/16/18 01:00 WAQ4537 (Rec: 10/16/18 01:11 YNX0245 ICU-M22) Document 10/16/18 02:00 PNZ0829 (Rec: 10/16/18 02:15 LSV7436 ICU-C15) Document 10/16/18 02:57 HWZ7748 (Rec: 10/16/18 02:58 ESP4752 ICU-C15) Document 10/16/18 05:00 MCT5253 (Rec: 10/16/18 05:04 CPW0118 ICU-M22) Document 10/16/18 05:38 CKT9418 (Rec: 10/16/18 05:38 NAM2979 ICU-C15) Document 10/16/18 06:00 XOD3091 (Rec: 10/16/18 06:04 NMQ5393 ICU-C15) Document 10/16/18 07:00 ZCW5366 (Rec: 10/16/18 10:48 VQW7025 ICU-C15) Document 10/16/18 08:00 LNO2977 (Rec: 10/16/18 10:48 FYH0049 ICU-C15) Document 10/16/18 09:00 XWF9272 (Rec: 10/16/18 10:49 DTA3850 ICU-C15) Document 10/16/18 10:00 KTG5414 (Rec: 10/16/18 10:49 KNN6510 ICU-C15) Document 10/16/18 11:00 BED6827 (Rec: 10/16/18 11:06 VXD9384 ICU-C15) Document 10/16/18 11:00 EXM7615 (Rec: 10/16/18 15:19 HHJ6967 ICU-C15) Document 10/16/18 12:00 SQX3051 (Rec: 10/16/18 13:50 ODC4816 ICU-M22) Document 10/16/18 13:48 AJC5147 (Rec: 10/16/18 13:50 JQY8134 ICU-M22) Document 10/16/18 15:00 MMY9938 (Rec: 10/16/18 17:20 QIE5565 ICU-M32) Document 10/16/18 16:00 QQA0287 (Rec: 10/16/18 17:21 MQZ9767 ICU-M32) Document 10/16/18 16:00 QKA3237 (Rec: 10/16/18 17:22 GAB4842 ICU-M32) Document 10/16/18 17:00 YYJ0273 (Rec: 10/16/18 17:21 NNF2687 ICU-M32) Document 10/16/18 18:00 QIZ4324 (Rec: 10/16/18 18:05 DHG7460 ICU-M32) Document 10/16/18 22:26 TBN2049 (Rec: 10/16/18 22:26 ZXO8231 ICU-M22) Document 10/17/18 01:00 GDV0928 (Rec: 10/17/18 02:14 TML6997 ICU-C25) Document 10/17/18 03:00 AOO5250 (Rec: 10/17/18 03:16 QZB1904 ICU-C25) Document 10/17/18 03:55 BNK3481 (Rec: 10/17/18 03:55 PQR3232 ICU-C25) Document 10/17/18 05:00 EFA7604 (Rec: 10/17/18 05:06 MAO9994 ICU-C25) Document 10/17/18 06:00 QJD8855 (Rec: 10/17/18 06:22 JJB3386 ICU-M22) Document 10/17/18 06:22 TOS0154 (Rec: 10/17/18 06:22 DDQ8571 ICU-M22) Document 10/17/18 08:00 BEG6436 (Rec: 10/17/18 15:37 BZD0671 ICU-C15) Document 10/17/18 10:00 ZTM8475 (Rec: 10/17/18 15:39 EBS4397 ICU-C15) Document 10/17/18 11:00 FOA7059 (Rec: 10/17/18 15:40 SWK8948 ICU-C15) Document 10/17/18 12:00 GQT8366 (Rec: 10/17/18 15:40 ERH9912 ICU-C15) Document 10/17/18 13:00 BMK7047 (Rec: 10/17/18 15:40 IRX7305 ICU-C15) Document 10/17/18 14:00 GQW1312 (Rec: 10/17/18 15:40 YMW1250 ICU-C15) Document 10/17/18 15:00 RZU1495 (Rec: 10/17/18 18:16 ZVV5025 ICU-C15) Document 10/17/18 16:00 PKP2374 (Rec: 10/17/18 18:16 PGU0578 ICU-C15) Document 10/17/18 17:00 SOZ0631 (Rec: 10/17/18 18:16 RIJ4222 ICU-C15) Document 10/17/18 18:00 ALV7257 (Rec: 10/17/18 18:58 DMX9133 ICU-C15) Document 10/17/18 19:00 WGF2047 (Rec: 10/17/18 19:29 BUP9271 ICU-M22) Document 10/17/18 20:00 XFZ9407 (Rec: 10/17/18 21:08 LEI5727 ICU-C16) Document 10/17/18 21:00 YGF6181 (Rec: 10/17/18 21:40 TZR6340 ICU-M22) Document 10/17/18 22:00 FXS4558 (Rec: 10/17/18 23:20 GRP8310 ICU-C16) Document 10/17/18 23:00 OVZ7503 (Rec: 10/17/18 23:20 WHD1404 ICU-C16) Document 10/17/18 23:54 TRG1465 (Rec: 10/17/18 23:54 QUP1602 ICU-M22) Document 10/18/18 01:00 LTY8292 (Rec: 10/18/18 04:01 VRF7856 ICU-M22) Document 10/18/18 02:00 RLM1997 (Rec: 10/18/18 04:01 DRT3829 ICU-M22) Document 10/18/18 03:00 TRO1731 (Rec: 10/18/18 04:01 NYY4310 ICU-M22) Document 10/18/18 04:00 OGY6258 (Rec: 10/18/18 04:01 WXY1683 ICU-M22) Document 10/18/18 04:00 DGX8767 (Rec: 10/18/18 05:21 LXE0861 ICU-C16) Document 10/18/18 06:00 XLT9217 (Rec: 10/18/18 06:02 GCY4982 ICU-M22) Document 03/02/19 07:00 BVR3324 (Rec: 10/18/18 10:00 DYZ3217 ICU-C15) Document 10/18/18 08:00 XYG0816 (Rec: 10/18/18 10:00 NXG8322 ICU-C15) Document 10/18/18 09:00 TBE6275 (Rec: 10/18/18 10:00 VBM4037 ICU-C15) Document 10/18/18 10:00 TFG6137 (Rec: 10/18/18 10:38 QLR7177 ICU-C15) Document 10/18/18 11:00 QSO4145 (Rec: 10/18/18 11:15 LTN1418 ICU-M22) Document 10/18/18 12:00 WZO8413 (Rec: 10/18/18 15:31 DGO8500 ICU-C15) Document 10/18/18 13:00 JVN4187 (Rec: 10/18/18 15:31 GWI5223 ICU-C15) Document 10/18/18 14:00 AXR2057 (Rec: 10/18/18 15:31 KYK0963 ICU-C15) Document 10/18/18 15:00 NHN6836 (Rec: 10/18/18 15:31 SEI9367 ICU-C15) Document 10/18/18 16:00 WGC6552 (Rec: 10/18/18 17:12 MIG6120 ICU-C15) Document 10/18/18 17:00 LAE9269 (Rec: 10/18/18 17:12 JHY8198 ICU-C15) Document 10/18/18 18:00 EQX8213 (Rec: 10/18/18 19:13 LZF6278 ICU-C15) Document 10/18/18 19:00 XPB0879 (Rec: 10/18/18 19:13 HDL7123 ICU-C15) Document 10/18/18 20:00 EPP2674 (Rec: 10/18/18 21:24 QLT5503 ICU-M22) Document 10/18/18 21:00 QVO2348 (Rec: 10/18/18 21:24 UOH6372 ICU-M22) Document 10/18/18 21:43 QVT8719 (Rec: 10/18/18 21:43 JPD2273 ICU-M22) Document 10/18/18 22:00 NHB5100 (Rec: 10/18/18 22:02 ZGO8773 ICU-M22) Document 10/18/18 23:00 UVM8575 (Rec: 10/19/18 00:02 HOQ8254 ICU-L03) Document 10/19/18 00:00 HEJ8737 (Rec: 10/19/18 01:22 OFA3874 ICU-L03) Document 10/19/18 01:00 EHS8816 (Rec: 10/19/18 01:22 WYL5137 ICU-L03) Document 10/19/18 02:00 SVD1789 (Rec: 10/19/18 04:40 HQH2180 ICU-L03) Document 10/19/18 03:00 OWQ6246 (Rec: 10/19/18 04:40 QXE3969 ICU-L03) Document 10/19/18 04:00 SXG3560 (Rec: 10/19/18 04:40 MLB2190 ICU-L03) Document 10/19/18 05:00 TWX0923 (Rec: 10/19/18 05:04 WUR0016 ICU-M22) Document 10/19/18 06:00 ZZD9416 (Rec: 10/19/18 06:52 VBH5116 ICU-L03) Document 10/19/18 07:00 ZYY2090 (Rec: 10/19/18 07:09 WQD3255 ICU-M22) Document 10/19/18 08:00 XDP0357 (Rec: 10/19/18 09:48 DHE4714 ICU-C12) Document 10/19/18 09:00 IIB8539 (Rec: 10/19/18 09:57 HJG5097 ICU-C12) Document 10/19/18 09:57 GQG9326 (Rec: 10/19/18 09:57 PXX4047 ICU-C12) Document 10/19/18 11:00 PRG4734 (Rec: 10/19/18 11:40 PHP9440 ICU-C12) Document 10/19/18 12:00 RIG7630 (Rec: 10/19/18 12:20 NUQ1320 ICU-C12) Document 10/19/18 14:00 GMU2435 (Rec: 10/19/18 14:38 TBC8728 ICU-C12) Document 10/19/18 15:00 KXG6924 (Rec: 10/19/18 16:42 MNP8878 ICU-M22) Document 10/19/18 16:00 COB6082 (Rec: 10/19/18 16:42 ZFO3726 ICU-M22) Document 10/19/18 17:00 FGC8104 (Rec: 10/19/18 18:11 MGQ9982 ICU-C25) Document 10/19/18 18:00 BVW2169 (Rec: 10/19/18 18:11 FVQ6652 ICU-C25) Document 10/19/18 20:00 IOU9672 (Rec: 10/19/18 20:35 KUL1803 ICU-M22) Document 10/19/18 22:00 ENX5902 (Rec: 10/19/18 22:20 JZZ4934 ICU-M22) Document 10/19/18 23:00 MFN2938 (Rec: 10/19/18 23:48 SSD0014 ICU-M22) Document 10/20/18 00:00 ZIF3640 (Rec: 10/20/18 00:34 RFE8374 ICU-L03) Document 10/20/18 01:00 PFU6692 (Rec: 10/20/18 01:35 FKA9885 ICU-L03) Document 10/20/18 02:00 XTR7717 (Rec: 10/20/18 02:10 SHD9450 ICU-L03) Document 10/20/18 03:00 EAE5068 (Rec: 10/20/18 03:23 QAP0990 ICU-L03) Document 10/20/18 04:00 DPL5116 (Rec: 10/20/18 05:57 MWX7200 ICU-L03) Document 10/20/18 05:00 GJP1247 (Rec: 10/20/18 06:08 FVU0654 ICU-L03) Document 10/20/18 06:00 JZH2180 (Rec: 10/20/18 06:15 PIU7982 ICU-L03) Document 10/20/18 07:00 JCB6642 (Rec: 10/20/18 07:19 OTC4421 ICU-L03) Document 10/20/18 08:00 ALU4443 (Rec: 10/20/18 09:24 CXI4295 ICU-M22) Document 10/20/18 09:00 YTO7301 (Rec: 10/20/18 09:24 OVX0292 ICU-M22) Document 10/20/18 10:15 VGQ2868 (Rec: 10/20/18 10:40 DFI7679 ICU-C15) Document 10/20/18 11:00 MIG4448 (Rec: 10/20/18 13:16 MJU8095 ICU-C15) Document 10/20/18 12:00 FNE3339 (Rec: 10/20/18 13:16 QEO8670 ICU-C15) Document 10/20/18 13:00 GRV0698 (Rec: 10/20/18 13:16 WNY3549 ICU-C15) Document 10/20/18 14:00 FCH0938 (Rec: 10/20/18 16:47 CXC8458 ICU-C15) Document 10/20/18 15:00 YBR6128 (Rec: 10/20/18 16:47 TJR0316 ICU-C15) Document 10/20/18 16:00 JWL7649 (Rec: 10/20/18 16:47 QFH3255 ICU-C15) Document 10/20/18 16:48 JZC6186 (Rec: 10/20/18 16:48 JZD3976 ICU-C15) Document 10/20/18 18:00 MOV1927 (Rec: 10/20/18 18:20 XOJ5646 ICU-C15) Document 10/20/18 19:00 APO8164 (Rec: 10/20/18 20:39 UJS7655 ICU-C15) Document 10/20/18 20:00 CXJ3984 (Rec: 10/20/18 20:39 AGT4910 ICU-C15) Document 10/20/18 21:00 CAH9477 (Rec: 10/20/18 22:03 JOM5111 ICU-M22) Document 10/20/18 22:00 XEI5581 (Rec: 10/20/18 22:03 IMC0718 ICU-M22) Document 10/20/18 23:00 HZK5442 (Rec: 10/21/18 00:18 LGZ1903 ICU-C15) Document 10/21/18 00:00 XVG6600 (Rec: 10/21/18 01:10 QPG5269 ICU-C15) Document 10/21/18 01:00 TDX5017 (Rec: 10/21/18 01:35 XOL9001 ICU-C15) Document 10/21/18 02:00 JUC5720 (Rec: 10/21/18 02:55 QHC1344 ICU-C15) Document 10/21/18 03:00 [id number] (Rec: 10/21/18 03:17 [id number] ICU-C15) Document 10/21/18 04:00 [id number] (Rec: 10/21/18 05:05 [id number] ICU-C15) Document 10/21/18 05:00 [id number] (Rec: 10/21/18 05:11 [id number] ICU-C15) Document 10/21/18 06:00 [id number] (Rec: 10/21/18 06:34 [id number] ICU-C15) Document 10/21/18 08:00 [id number] (Rec: 10/21/18 08:50 [id number] ICU-M22) Document 10/21/18 10:00 [id number] (Rec: 10/21/18 10:48 [id number] ICU-C15) Document 10/21/18 11:00 [id number] (Rec: 10/21/18 11:12 [id number] ICU-C15) Document 10/21/18 12:00 [id number] (Rec: 10/21/18 12:27 BHZ1429 ICU-C15) Document 10/21/18 13:00 [id number] (Rec: 10/21/18 13:04 [id number] ICU-C15) Document 10/21/18 14:00 [id number] (Rec: 10/21/18 14:00 [id number] ICU-C15) Document 10/21/18 14:54 [id number] (Rec: 10/21/18 14:54 [id number] ICU-C15) Document 10/21/18 16:00 RUF2627 (Rec: 10/21/18 16:55 [id number] ICU-M32) Document 10/21/18 17:58 [id number] (Rec: 10/21/18 17:58 [id number] ICU-M22) Document 10/21/18 19:00 KBK6207 (Rec: 10/21/18 20:33 HIK9711 ICU-C25) Document 10/21/18 21:00 TQB1697 (Rec: 10/21/18 21:35 KPC5017 ICU-M22) Document 10/21/18 23:00 QYK4294 (Rec: 10/21/18 23:39 [id number] ICU-C25) Document 10/22/18 00:00 FNY9302 (Rec: 10/22/18 01:22 [id number] ICU-C25) Document 10/22/18 01:00 IAS7419 (Rec: 10/22/18 01:23 WAX1592 ICU-C25) Document 10/22/18 02:00 [id number] (Rec: 10/22/18 02:17 [id number] ICU-C25) Document 10/22/18 03:00 [id number] (Rec: 10/22/18 04:49 DRB0552 ICU-C25) Document 10/22/18 04:00 XAJ0639 (Rec: 10/22/18 05:46 [id number] ICU-C25) Document 10/22/18 05:00 DPK2234 (Rec: 10/22/18 05:30 [id number] ICU-M22) Document 10/22/18 06:00 IPF2352 (Rec: 10/22/18 06:56 MCG5412 ICU-C12) Document 10/22/18 07:42 VLT1769 (Rec: 10/22/18 07:42 [id number] ICU-M22) Document 10/22/18 08:52 GEE7581 (Rec: 10/22/18 08:54 PQN1533 ICU-M22) Document 10/22/18 11:03 CCQ1848 (Rec: 10/22/18 11:03 [id number] ICU-C12) Document 10/22/18 12:34 SHQ2652 (Rec: 10/22/18 12:34 [id number] ICU-C12) Document 10/22/18 13:10 [id number] (Rec: 10/22/18 13:10 SRN1567 ICU-C12) Document 10/22/18 14:00 DCY6919 (Rec: 10/22/18 14:09 OJK1774 ICU-C12) Document 10/22/18 17:35 HMK9629 (Rec: 10/22/18 17:37 [id number] ICU-M29) Document 10/22/18 20:00 [id number] (Rec: 10/22/18 21:50 [id number] ICU-L03) Document 10/23/18 03:15 [id number] (Rec: 10/23/18 03:15 PAH9437 ICU-M29) Document 10/23/18 05:30 WBS7717 (Rec: 10/23/18 05:43 [id number] ICU-M29) Document 10/23/18 07:45 [id number] (Rec: 10/23/18 08:19 [id number] ICU-C15) Document 10/23/18 07:59 HPU2611 (Rec: 10/23/18 08:00 [id number] ICU-M29) Document 10/23/18 11:31 [id number] (Rec: 10/23/18 11:31 [id number] ICU-C15) Labs: Laboratory Results - last 24 hr 10/22/18 10/22/18 10/23/18 12:29 18:26 00:57 POC Glucose (mg/dL) 107 H 100 130 H 10/23/18 05:59 POC Glucose (mg/dL) 102 H Nutrition: Regular unrestricted diet Impression: 58 year old male with history of ETOH abuse requiring intubation for severe withdrawal and agitation. # Altered mental status with agitation ETOH withdrawal, mood d/o, hepatic encepalopathy # history of chronic alcohol abuse # Tachycardia- hypovolemia vs agitation # Hypoxic Respiratory Failure 2/2 ETOH Withdrawal now extubated 10/20 # Influenza Positive s/p tx # CAP s/p therapy # Diarrhea # Electrolyte derrangements- hypokalemia Plan: # Altered mental status with agitation ETOH withdrawal, mood d/o, hepatic encephalopathy - suspect at this point he is out of the withdrawal period - he is calm off the precedex since this am and all day yesterday - Please avoid restarting precedex without my knowledge. - Scheduled seroquel and melatonin for bedtime. On prn zyprexa, benadryl, and ativan for agitation. - discontinue rifaxamin # history of chronic alcohol abuse - MVI, folic acid, thiamine # Hypoxic Respiratory Failure 2/2 ETOH Withdrawal now extubated 10/20 # Influenza Positive s/p tx # -stable respiratory status on RA # Diarrhea - r/o infection- C-diff negative. Stool culture results pending. Fecal WBC + - recommend against imodium - no BM today # Electrolyte derangements- hypokalemia - replace electrolytes per protocol - discontinue IVF since he has an oral diet and concerns for fluid overload # HTN - Continue clonidine patch, norvasc and MARILU - Hydralazine and metoprolol PRN, increase BB to Q4h # Frailty PT/OT consult pending DVT Prophy - HSQ and SCDs Code Status - DNR Dispo: plan to downgrade to 4N if precedex no used for >24hours and no other critical care concerns Critical care issues: confusion/disorientation requiring precedex Critical Care Time: 35 minutes
[2018-10-23] MEDS: Metoprolol Tartrate TAB* 25 MG PO SCH ×2 (15:11→21:55)
[2018-10-23] MEDS: cloNIDine 0.3 MG PATCH* 0.3 MG/24 HR 7 DAY PATCH TRANSDERM SCH (17:30)
[2018-10-23] MEDS ORDERED: QUEtiapine TAB* 25 MG PO SCH (21:00)
[2018-10-23] MEDS: Melatonin 3 MG TAB PO SCH (21:54)
[2018-10-23] MEDS ORDERED: Acetaminophen TAB* 325 MG PO PRN (23:55)
--- NOTE | 2018-10-23 23:59 | PN ---
Progress Note - Progress Note Date of Service: 10/23/18 Note: Paged for fever - New for him. Will get blood cultures, U/A and CXR.
[2018-10-24 04:31] LABS: ABS Basophils 0.3 10^3/ul (0-0.2); ABS Eosinophils 0.1 10^3/ul (0-0.6); ABS Lymphocytes 3.5 10^3/ul (1.0-4.8); ABS Monocytes 1.5 10^3/ul (0-0.8); ABS Neutrophils 5.9 10^3/ul (1.5-7.7); ABS Nucleated RBC 0 10^3/ul; Eosinophil % 1.2 %; Hematocrit 41 % (42-52); Lymphocyte % 30.6 %; Mean Corpuscular HGB Conc 34 g/dl (31-36); Mean Corpuscular Hemoglobin 32 pg (27-31); Mean Corpuscular Volume 94 fL (80-94); Mean Platelet Volume 8.4 fL (7.4-10.4); Nucleated Red Blood Cells % 0.1; Platelet Count 473 10^3/ul (150-450); Red Cell Distribution Width 15 % (10.5-15); White Blood Count 11.3 10^3/ul (3.5-10.8)
[2018-10-24 04:48] LABS: BUN/Creatinine Ratio 19.4 (8-20); Calcium 9.4 mg/dL (8.6-10.3); EGFR African American 136.6 (>60); EGFR Non-African American 112.9 (>60); Magnesium 2.1 mg/dL (1.9-2.7); Potassium 3.4 mmol/L (3.5-5.0)
[2018-10-24] MEDS: Heparin VIAL(*) 5000 UNITS/ML VIAL (FIVE THOUSAND) SUBCUT SCH ×2 (08:07→20:30)
[2018-10-24] MEDS: Lisinopril TAB* 10 MG PO SCH (08:08)
[2018-10-24] MEDS: Aspirin 81 mg CHEW TAB* 81 MG TAB.CHEW PO SCH (08:08)
[2018-10-24] MEDS: Thiamine TAB* 100 MG TAB G TUBE SCH (08:08)
[2018-10-24] MEDS: Metoprolol Tartrate TAB* 25 MG PO SCH ×3 (08:08→20:30)
[2018-10-24] MEDS: amLODIPine TAB* 5 MG PO SCH (08:08)
[2018-10-24] MEDS: Folic Acid TAB* 1 MG NG TUBE SCH (08:08)
[2018-10-24] MEDS: Lansoprazole SUSP* ORALSYR 3 MG/ML PO SCH (09:12)
[2018-10-24] MEDS: Multivitamins ADULT w/MIN LIQ* 15 ML UDC NG TUBE SCH (10:07)
[2018-10-24 11:13] LABS: Influenza A Molecular NEGATIVE (Negative); Influenza B Molecular NEGATIVE (Negative)
[2018-10-24] MEDS: LORazepam INJ* 2 MG/ML 1 ML VIAL IV PUSH PRN (13:10)
[2018-10-24] MEDS ORDERED: Piperacillin/Tazobac ADVAN(*) 3.375 GM in NS 0.9% 100 ML* 100 ML IVPB ONE (16:02)
[2018-10-24] MEDS ORDERED: Vancomycin per Pharmacy* NOTE FOLLOW UP PRN (16:59)
[2018-10-24] MEDS ORDERED: Zosyn per Pharmacy* NOTE FOLLOW UP SCH (17:00)
[2018-10-24] MEDS ORDERED: Cefepime 2 GM in Dextrose(*) 2 GM/50 ML BAG IV SCH (17:00)
[2018-10-24] MEDS ORDERED: Vancomycin(*) 1,250 MG IV x ONCE IVPB ONE ×2 (17:30)
--- NOTE | 2018-10-24 17:43 | PN ---
Subjective Date of Service: 10/24/18 Interval History: Patient seen and examined. Had fever overnight, remains confused, sometimes difficult to redirect. Pulled out his own PICC line. When asked what date it is , states "October 16". Efforts to reorient. Denies SOB, no chest pain, no complaint of chills although I cannot determine accuracy of his responses. Objective Active Medications: Acetaminophen (Tylenol Tab*) 650 mg PO Q6H PRN PRN Reason: FEVER Last Admin: 10/24/18 00:23 Dose: 650 mg Albuterol (Ventolin 2.5 Mg/3 Ml Neb.Janessa*) 2.5 mg INH Q2H PRN PRN Reason: SOB/WHEEZING Last Admin: 10/13/18 04:18 Dose: 2.5 mg Amlodipine Besylate (Norvasc Tab*) 10 mg PO DAILY [facility] Last Admin: 10/24/18 08:08 Dose: 10 mg Aspirin (Aspirin 81 Mg Chew Tab*) 81 mg PO DAILY [facility] Last Admin: 10/24/18 08:08 Dose: 81 mg Clonidine HCl (Iogupfdq-Lys-5 0.3 Mg Patch*) 0.3 mg TRANSDERM Q7D [facility] Last Admin: 10/23/18 17:30 Dose: 0.3 mg Diphenhydramine HCl (Benadryl Po*) 25 mg PO BEDTIME PRN PRN Reason: AGITATION Folic Acid (Folvite Tab*) 1 mg NG TUBE DAILY [facility] Last Admin: 10/24/18 08:08 Dose: 1 mg Heparin Sodium (Porcine) (Heparin Vial(*)) 5,000 units SUBCUT Q12HR [facility] Last Admin: 10/24/18 08:07 Dose: 5,000 units Heparin Sodium (Porcine) (Heparin Flush Picc/Ml/Cvc(*)) 1 - 3 ml FLUSH 0600, 1800 [facility]; Protocol Last Admin: 10/24/18 17:32 Dose: Not Given Hydralazine HCl (Apresoline Iv*) 10 mg IV SLOW PU Q6H PRN PRN Reason: SBP>170 Last Admin: 10/21/18 19:31 Dose: 10 mg Cefepime HCl (Maxipime 2 Gm In Dextrose Duplex (*)) 2 gm in 50 mls @ 100 mls/ hr IV 0600,1800 [facility] Last Admin: 10/24/18 17:31 Dose: 100 mls/hr Levofloxacin/Dextrose (Levaquin 750 Mg Ivpremix(*)) 750 mg in 150 mls @ 100 mls /hr IVPB Q24H [facility] Vancomycin HCl 1,250 mg/ (Sodium Chloride) 250 mls @ 166.667 mls/hr IVPB ONCE ONE Stop: 10/24/18 18:59 Lansoprazole (Lansoprazole Susp* Oralsyr) 30 mg PO DAILY [facility] Last Admin: 10/24/18 09:12 Dose: 30 mg Lisinopril (Prinivil Tab*) 20 mg PO DAILY [facility] Last Admin: 10/24/18 08:08 Dose: 20 mg Lorazepam (Ativan Inj*) 1 mg IV PUSH Q6H PRN PRN Reason: AGITATION Last Admin: 10/24/18 13:10 Dose: 1 mg Melatonin (Melatonin) 6 mg PO BEDTIME [facility]; Protocol Last Admin: 10/23/18 21:54 Dose: 6 mg Metoprolol Tartrate (Lopressor Iv*) 5 mg IV Q4H PRN PRN Reason: SBP>170 or HR >120 Last Admin: 10/22/18 20:54 Dose: 5 mg Metoprolol Tartrate (Lopressor Tab*) 25 mg PO BID [facility] Multivitamins (Theragran W/Minerals Liq*) 15 ml NG TUBE DAILY [facility] Last Admin: 10/24/18 10:07 Dose: 15 ml Olanzapine (Zyprexa Im (Nf)) 5 mg IM Q12HR PRN; Protocol PRN Reason: AGITATION Last Admin: 10/22/18 10:50 Dose: 5 mg Ondansetron HCl (Zofran Inj*) 4 mg IV Q6H PRN PRN Reason: NAUSEA Last Admin: 10/12/18 05:19 Dose: 4 mg Pharmacy Consult (Vancomycin Per Pharmacy*) 1 note FOLLOW UP . PRN PRN Reason: PER PROTOCOL Quetiapine Fumarate (Seroquel Tab*) 25 mg PO BID [facility] Thiamine HCl (Vitamin B-1 Tab*) 100 mg PO DAILY [facility] Vital Signs - 8 hr 10/24/18 10/24/18 10/24/18 11:25 13:10 13:56 Temperature 98.7 F 98.4 F Pulse Rate 112 89 Respiratory 20 22 20 Rate Blood Pressure 120/79 126/78 (mmHg) O2 Sat by Pulse 97 96 Oximetry 10/24/18 15:08 Temperature Pulse Rate Respiratory 20 Rate Blood Pressure (mmHg) O2 Sat by Pulse Oximetry Oxygen Devices in Use Now: None Appearance: Alert, agitated at times, mild distress Eyes: No Scleral Icterus, PERRLA Ears/Nose/Mouth/Throat: NL Teeth, Lips, Gums, Mucous Membranes Moist Neck: NL Appearance and Movements; NL JVP, Trachea Midline Respiratory: Symmetrical Chest Expansion and Respiratory Effort, - - diminished on left, no wheeze or rales noted Cardiovascular: NL Sounds; No Murmurs; No JVD, RRR, No Edema Abdominal: NL Sounds; No Tenderness; No Distention Extremities: No Edema, No Clubbing, Cyanosis Skin: No Rash or Ulcers Neurological: - - confused, alert to name and place Nutrition: Taking PO's Result Diagrams: 10/24/18 04:17 10/24/18 04:17 Additional Lab and Data: Lab Results 10/09/18 10/09/18 10/09/18 Range/Units 15:08 17:24 17:24 WBC 3.6 (3.5-10.8) 10^3/ul RBC 5.40 (4.00-5.40) 10^6/ul Hgb 17.3 (14.0-18.0) g/dl Hct 50 (42-52) % MCV 93 (80-94) fL MCH 32 H (27-31) pg MCHC 35 (31-36) g/dl RDW 14 (10.5-15) % Plt Count 100 L (150-450) 10^3/ul MPV 8.9 (7.4-10.4) fL Neut % (Auto) 69.7 % Lymph % (Auto) 14.4 % [place] % (Auto) 15.1 % Eos % (Auto) 0 % Baso % (Auto) 0.8 % Absolute Neuts (auto) 2.5 (1.5-7.7) 10^3/ul Absolute Lymphs (auto) 0.5 L (1.0-4.8) 10^3/ul Absolute Monos (auto) 0.5 (0-0.8) 10^3/ul Absolute Eos (auto) 0 (0-0.6) 10^3/ul Absolute Basos (auto) 0 (0-0.2) 10^3/ul Absolute Nucleated RBC 0 10^3/ul Nucleated RBC % 0.2 INR (Anticoag Therapy) (0.77-1.02) APTT (26.0-36.3) seconds Sodium 130 L (135-145) mmol/L Potassium 3.8 (3.5-5.0) mmol/L Chloride 92 L (101-111) mmol/L Carbon Dioxide 26 (22-32) mmol/L Anion Gap 12 H (2-11) mmol/L BUN 9 (6-24) mg/dL Creatinine 0.99 (0.67-1.17) mg/dL Est GFR ( Amer) 94.6 (>60) Est GFR (Non-Af Amer) 78.2 (>60) BUN/Creatinine Ratio 9.1 (8-20) Glucose 116 H (70-100) mg/dL Lactic Acid (0.5-2.0) mmol/L Calcium 9.3 (8.6-10.3) mg/dL Total Bilirubin 0.60 (0.2-1.0) mg/dL AST 265 H (13-39) U/L ALT 138 H (7-52) U/L Alkaline Phosphatase 130 H (34-104) U/L Total Creatine Kinase 1204 H (10-223) U/L CK-MB (CK-2) 2.7 (0.6-6.3) ng/mL Troponin I 0.01 (<0.04) ng/mL C-Reactive Protein 59.81 H (<8.01) mg/L B-Natriuretic Peptide (<=100) pg/mL Total Protein 8.5 (6.4-8.9) g/dL Albumin 4.7 (3.2-5.2) g/dL Globulin 3.8 (2-4) g/dL Albumin/Globulin Ratio 1.2 (1-3) Influenza A (Rapid) Positive A (Negative) 10/09/18 10/09/18 10/09/18 Range/Units 17:24 17:25 17:25 WBC (3.5-10.8) 10^3/ul RBC (4.00-5.40) 10^6/ul Hgb (14.0-18.0) g/dl Hct (42-52) % MCV (80-94) fL MCH (27-31) pg MCHC (31-36) g/dl RDW (10.5-15) % Plt Count (150-450) 10^3/ul MPV (7.4-10.4) fL Neut % (Auto) % Lymph % (Auto) % [place] % (Auto) % Eos % (Auto) % Baso % (Auto) % Absolute Neuts (auto) (1.5-7.7) 10^3/ul Absolute Lymphs (auto) (1.0-4.8) 10^3/ul Absolute Monos (auto) (0-0.8) 10^3/ul Absolute Eos (auto) (0-0.6) 10^3/ul Absolute Basos (auto) (0-0.2) 10^3/ul Absolute Nucleated RBC 10^3/ul Nucleated RBC % INR (Anticoag Therapy) 0.93 (0.77-1.02) APTT 34.2 (26.0-36.3) seconds Sodium (135-145) mmol/L Potassium (3.5-5.0) mmol/L Chloride (101-111) mmol/L Carbon Dioxide (22-32) mmol/L Anion Gap (2-11) mmol/L BUN (6-24) mg/dL Creatinine (0.67-1.17) mg/dL Est GFR ( Amer) (>60) Est GFR (Non-Af Amer) (>60) BUN/Creatinine Ratio (8-20) Glucose (70-100) mg/dL Lactic Acid 1.5 (0.5-2.0) mmol/L Calcium (8.6-10.3) mg/dL Total Bilirubin (0.2-1.0) mg/dL AST (13-39) U/L ALT (7-52) U/L Alkaline Phosphatase (34-104) U/L Total Creatine Kinase (10-223) U/L CK-MB (CK-2) (0.6-6.3) ng/mL Troponin I (<0.04) ng/mL C-Reactive Protein (<8.01) mg/L B-Natriuretic Peptide 64 (<=100) pg/mL Total Protein (6.4-8.9) g/dL Albumin (3.2-5.2) g/dL Globulin (2-4) g/dL Albumin/Globulin Ratio (1-3) Influenza A (Rapid) (Negative) Microbiology and Other Data: Microbiology 10/09/18 14:47 Influenza Types A,B Antigen - Final Nasal Specimen received for Influenza A/B Molecular testing Diagnostic Imaging: Patient Name: PATO BUSBY Medical Record#: [id number] Ordering Physician: Flori Juárez DO Acct.#: [id number] : 1960 Age: 58 Sex: M Location: [address] [place] [address] - MEDICAL/TELEMETRY Exam Date: 10/23/18 3236 ADM Status: ADM IN Order Information: CHEST AP OR PORT Accession Number: [id number] CPT: 78722 INDICATION: Fever. COMPARISON: Comparison is made with a prior chest x-ray study from October 22, 2017. TECHNIQUE: A portable view of the chest was obtained. FINDINGS: Cardiac and mediastinal contours appear to be within normal limits. There is a PICC present which demonstrates normal course. The catheter tip projects over the superior vena cava. The lungs are underinflated. There is a infiltrate at the left lung base which appears unchanged. No pleural effusion is seen. IMPRESSION: SMALL LEFT BASILAR INFILTRATE. Assess/Plan/Problems-Billing Assessment: This is a 58 year old male with history of ETOH abuse that was intubated for severe withdrawal and agitation, extubated on 10/20/18, downgraded to medical floo 10/23/18 and remains with encephalopathy and new fever. 6. HTN DVT Prophy - HSQ and SCDs Code Status - DNR Critical Care Time: 75 minutes - Patient Problems (1) Acute respiratory failure with hypoxia Code(s): J96.01 - ACUTE RESPIRATORY FAILURE WITH HYPOXIA SNOMED Code(s): 09126080 Comment: - 2/2 ETOH Withdrawal - Extubated 10/20 - Now on room air, resolved (2) Influenza Code(s): J11.1 - FLU DUE TO UNIDENTIFIED INFLUENZA VIRUS W OTH RESP MANIFEST SNOMED Code(s): 1451952 Comment: - Completed tamiflu course - suspected CAP at arrival that was treated with zosyn, however has new fever and consolidation on CXR last night (3) VAP (ventilator-associated pneumonia) Code(s): J95.851 - VENTILATOR ASSOCIATED PNEUMONIA SNOMED Code(s): 778433510 Comment: - New fever overnight - CXR as above - Since patient has had prolinged hospitalization and was on ventilator for one week, will treat with VAP/HAP with vanco, cefepime and levaquin - Tylenol for fevers (4) Hepatic encephalopathy Code(s): K72.90 - HEPATIC FAILURE, UNSPECIFIED WITHOUT COMA SNOMED Code(s): 95284243 Comment: - 2/2 chronic ETOH abuse and severe withdrawal and respiratory failure/ metabolic derangement - Not currently detoxing - Pulled out PICC and threatens to pull any other lines and wants to leave - Does not appear to have capacity for medical decision-making at this time - Seroquel BID, avoid benzos if possible (ativan IV for severe agitation only) - Supportive care (5) HTN (hypertension) Code(s): I10 - ESSENTIAL (PRIMARY) HYPERTENSION SNOMED Code(s): 01889162 Comment: - Combination of what is likely untreated HTN with recent withdrawal - Stable on clonidine patch, norvasc and MARILU - Metoprolol PRN, monitor for tachycardia as well (HR currently controlled) (6) Alcoholic hepatitis Code(s): K70.10 - ALCOHOLIC HEPATITIS WITHOUT ASCITES SNOMED Code(s): 957486741 Comment: - Stable, will need outpatient follow up after discharge (7) DVT prophylaxis Code(s): ZJJ1538 - SNOMED Code(s): 391407361 Comment: - Continue Heparin SQ (8) DNR (do not resuscitate) Status and Disposition: Inpatient for treatement of VAP with IV atbx, will likely need STR.
[2018-10-24] MEDS: Levofloxacin 750 MG IVPREMIX(* 750 MG/150 ML BAG IVPB SCH (19:11)
[2018-10-24] MEDS: Melatonin 3 MG TAB PO SCH (20:29)
[2018-10-24] MEDS: diPHENhydraMINE PO* 25 MG PO PRN (20:30)
[2018-10-24] MEDS: QUEtiapine TAB* 25 MG PO SCH (20:30)
[2018-10-24 21:35] LABS: Urine Appearance Clear; Urine Bacteria Absent (Absent); Urine Bilirubin Negative (Negative); Urine Blood 1+ (Negative); Urine Color Amber; Urine Glucose Negative (Negative); Urine Ketones 2+ (Negative); Urine Nitrite Negative (Negative); Urine Protein Negative (Negative); Urine Red Blood Cell 3+(>10/hpf) (Absent); Urine Specific Gravity 1.025 (1.010-1.030); Urine Squamous Epithelial Cell Present (Absent); Urine Urobilinogen Negative (Negative); Urine White Blood Cell 2+(11-20/hpf) (Absent)
[2018-10-25] MEDS: LORazepam INJ* 2 MG/ML 1 ML VIAL IV PUSH PRN (01:01)
[2018-10-25] MEDS ORDERED: Cefepime 2 GM in Dextrose(*) 2 GM/50 ML BAG IV SCH (01:30)
[2018-10-25] MEDS: Cefepime 2 GM in Dextrose(*) 2 GM/50 ML BAG IV SCH ×3 (05:04→20:48)
[2018-10-25] MEDS: Vancomycin(*) 1,250 MG in NS 0.9% 250 ML* 250 ML IVPB SCH ×3 (06:13→21:54)
[2018-10-25] MEDS: amLODIPine TAB* 5 MG PO SCH ×2 (08:55→12:03)
[2018-10-25] MEDS: Lisinopril TAB* 10 MG PO SCH ×2 (08:55→12:04)
[2018-10-25] MEDS: Aspirin 81 mg CHEW TAB* 81 MG TAB.CHEW PO SCH ×2 (08:55→12:03)
[2018-10-25] MEDS: Folic Acid TAB* 1 MG NG TUBE SCH ×2 (08:55→12:04)
[2018-10-25] MEDS: Multivitamins ADULT w/MIN LIQ* 15 ML UDC NG TUBE SCH (08:55)
[2018-10-25] MEDS: Thiamine TAB* 100 MG TAB PO SCH ×2 (08:55→12:04)
[2018-10-25] MEDS: Metoprolol Tartrate TAB* 25 MG PO SCH ×2 (08:55→20:48)
[2018-10-25] MEDS: QUEtiapine TAB* 25 MG PO SCH ×2 (08:55→20:47)
[2018-10-25] MEDS: Heparin VIAL(*) 5000 UNITS/ML VIAL (FIVE THOUSAND) SUBCUT SCH ×3 (08:56→20:48)
[2018-10-25] MEDS: Lansoprazole SUSP* ORALSYR 3 MG/ML PO SCH ×2 (08:56→12:04)
--- NOTE | 2018-10-25 16:02 | PN ---
Subjective Date of Service: 10/25/18 Interval History: Patient seen and examined. Appears more comfortable today, still confused but showing improvement every day. Requires reorientation frequently, but can make needs known. Denies SOB, no chest pain. No further fevers noted. Objective Active Medications: Acetaminophen (Tylenol Tab*) 650 mg PO Q6H PRN PRN Reason: FEVER Last Admin: 10/24/18 00:23 Dose: 650 mg Albuterol (Ventolin 2.5 Mg/3 Ml Neb.Jansesa*) 2.5 mg INH Q2H PRN PRN Reason: SOB/WHEEZING Last Admin: 10/13/18 04:18 Dose: 2.5 mg Amlodipine Besylate (Norvasc Tab*) 10 mg PO DAILY [facility] Last Admin: 10/25/18 12:03 Dose: Not Given Aspirin (Aspirin 81 Mg Chew Tab*) 81 mg PO DAILY [facility] Last Admin: 10/25/18 12:03 Dose: Not Given Clonidine HCl (Qpqfdrcb-Nmt-9 0.3 Mg Patch*) 0.3 mg TRANSDERM Q7D [facility] Last Admin: 10/23/18 17:30 Dose: 0.3 mg Diphenhydramine HCl (Benadryl Po*) 25 mg PO BEDTIME PRN PRN Reason: AGITATION Last Admin: 10/24/18 20:30 Dose: 25 mg Folic Acid (Folvite Tab*) 1 mg NG TUBE DAILY [facility] Last Admin: 10/25/18 12:04 Dose: Not Given Heparin Sodium (Porcine) (Heparin Vial(*)) 5,000 units SUBCUT Q12HR [facility] Last Admin: 10/25/18 12:04 Dose: Not Given Heparin Sodium (Porcine) (Heparin Flush Picc/Ml/Cvc(*)) 1 - 3 ml FLUSH 0600, 1800 [facility]; Protocol Last Admin: 10/25/18 06:21 Dose: Not Given Levofloxacin/Dextrose (Levaquin 750 Mg Ivpremix(*)) 750 mg in 150 mls @ 100 mls /hr IVPB Q24H [facility] Last Admin: 10/24/18 19:11 Dose: 100 mls/hr Vancomycin HCl 1,250 mg/ (Sodium Chloride) 250 mls @ 166.667 mls/hr IVPB Q8H [facility] Last Admin: 10/25/18 14:55 Dose: 166.667 mls/hr Cefepime HCl (Maxipime 2 Gm In Dextrose Duplex (*)) 2 gm in 50 mls @ 100 mls/ hr IV Q8H [facility] Last Admin: 10/25/18 13:49 Dose: 100 mls/hr Lansoprazole (Lansoprazole Susp* Oralsyr) 30 mg PO DAILY [facility] Last Admin: 10/25/18 12:04 Dose: Not Given Lisinopril (Prinivil Tab*) 20 mg PO DAILY [facility] Last Admin: 10/25/18 12:04 Dose: Not Given Lorazepam (Ativan Inj*) 1 mg IV PUSH Q6H PRN PRN Reason: AGITATION Last Admin: 10/25/18 01:01 Dose: 1 mg Melatonin (Melatonin) 6 mg PO BEDTIME [facility]; Protocol Last Admin: 10/24/18 20:29 Dose: 6 mg Metoprolol Tartrate (Lopressor Iv*) 5 mg IV Q4H PRN PRN Reason: SBP>170 or HR >120 Last Admin: 10/22/18 20:54 Dose: 5 mg Metoprolol Tartrate (Lopressor Tab*) 25 mg PO BID [facility] Last Admin: 10/25/18 08:55 Dose: 25 mg Multivitamins (Theragran W/Minerals Liq*) 15 ml NG TUBE DAILY [facility] Last Admin: 10/25/18 08:55 Dose: 15 ml Olanzapine (Zyprexa Im (Nf)) 5 mg IM Q12HR PRN; Protocol PRN Reason: AGITATION Last Admin: 10/22/18 10:50 Dose: 5 mg Ondansetron HCl (Zofran Inj*) 4 mg IV Q6H PRN PRN Reason: NAUSEA Last Admin: 10/12/18 05:19 Dose: 4 mg Pharmacy Consult (Vancomycin Per Pharmacy*) 1 note FOLLOW UP . PRN PRN Reason: PER PROTOCOL Pharmacy Profile Note (Vancomycin Trough Check) 1 note FOLLOW UP 0600 ONE Stop: 10/26/18 06:01 Quetiapine Fumarate (Seroquel Tab*) 25 mg PO BID [facility] Last Admin: 10/25/18 08:55 Dose: 25 mg Thiamine HCl (Vitamin B-1 Tab*) 100 mg PO DAILY [facility] Last Admin: 10/25/18 12:04 Dose: Not Given Vital Signs - 8 hr 10/25/18 10/25/18 10/25/18 08:00 11:44 15:07 Temperature 98.3 F 98.7 F Pulse Rate 88 95 Respiratory 20 24 18 Rate Blood Pressure 103/66 140/87 (mmHg) O2 Sat by Pulse 97 97 Oximetry Oxygen Devices in Use Now: None Eyes: No Scleral Icterus, PERRLA Ears/Nose/Mouth/Throat: NL Teeth, Lips, Gums, Mucous Membranes Moist Neck: NL Appearance and Movements; NL JVP, Trachea Midline Respiratory: Symmetrical Chest Expansion and Respiratory Effort, - - diminished base, RML with exp wheeze, no rales or rhonchi Cardiovascular: NL Sounds; No Murmurs; No JVD, No Edema Abdominal: NL Sounds; No Tenderness; No Distention Extremities: No Edema, No Clubbing, Cyanosis Skin: No Rash or Ulcers Neurological: - - alert to person Nutrition: Taking PO's Result Diagrams: 10/24/18 04:17 10/24/18 04:17 Additional Lab and Data: Lab Results 10/09/18 10/09/18 10/09/18 Range/Units 15:08 17:24 17:24 WBC 3.6 (3.5-10.8) 10^3/ul RBC 5.40 (4.00-5.40) 10^6/ul Hgb 17.3 (14.0-18.0) g/dl Hct 50 (42-52) % MCV 93 (80-94) fL MCH 32 H (27-31) pg MCHC 35 (31-36) g/dl RDW 14 (10.5-15) % Plt Count 100 L (150-450) 10^3/ul MPV 8.9 (7.4-10.4) fL Neut % (Auto) 69.7 % Lymph % (Auto) 14.4 % [place] % (Auto) 15.1 % Eos % (Auto) 0 % Baso % (Auto) 0.8 % Absolute Neuts (auto) 2.5 (1.5-7.7) 10^3/ul Absolute Lymphs (auto) 0.5 L (1.0-4.8) 10^3/ul Absolute Monos (auto) 0.5 (0-0.8) 10^3/ul Absolute Eos (auto) 0 (0-0.6) 10^3/ul Absolute Basos (auto) 0 (0-0.2) 10^3/ul Absolute Nucleated RBC 0 10^3/ul Nucleated RBC % 0.2 INR (Anticoag Therapy) (0.77-1.02) APTT (26.0-36.3) seconds Sodium 130 L (135-145) mmol/L Potassium 3.8 (3.5-5.0) mmol/L Chloride 92 L (101-111) mmol/L Carbon Dioxide 26 (22-32) mmol/L Anion Gap 12 H (2-11) mmol/L BUN 9 (6-24) mg/dL Creatinine 0.99 (0.67-1.17) mg/dL Est GFR ( Amer) 94.6 (>60) Est GFR (Non-Af Amer) 78.2 (>60) BUN/Creatinine Ratio 9.1 (8-20) Glucose 116 H (70-100) mg/dL Lactic Acid (0.5-2.0) mmol/L Calcium 9.3 (8.6-10.3) mg/dL Total Bilirubin 0.60 (0.2-1.0) mg/dL AST 265 H (13-39) U/L ALT 138 H (7-52) U/L Alkaline Phosphatase 130 H (34-104) U/L Total Creatine Kinase 1204 H (10-223) U/L CK-MB (CK-2) 2.7 (0.6-6.3) ng/mL Troponin I 0.01 (<0.04) ng/mL C-Reactive Protein 59.81 H (<8.01) mg/L B-Natriuretic Peptide (<=100) pg/mL Total Protein 8.5 (6.4-8.9) g/dL Albumin 4.7 (3.2-5.2) g/dL Globulin 3.8 (2-4) g/dL Albumin/Globulin Ratio 1.2 (1-3) Influenza A (Rapid) Positive A (Negative) 10/09/18 10/09/18 10/09/18 Range/Units 17:24 17:25 17:25 WBC (3.5-10.8) 10^3/ul RBC (4.00-5.40) 10^6/ul Hgb (14.0-18.0) g/dl Hct (42-52) % MCV (80-94) fL MCH (27-31) pg MCHC (31-36) g/dl RDW (10.5-15) % Plt Count (150-450) 10^3/ul MPV (7.4-10.4) fL Neut % (Auto) % Lymph % (Auto) % [place] % (Auto) % Eos % (Auto) % Baso % (Auto) % Absolute Neuts (auto) (1.5-7.7) 10^3/ul Absolute Lymphs (auto) (1.0-4.8) 10^3/ul Absolute Monos (auto) (0-0.8) 10^3/ul Absolute Eos (auto) (0-0.6) 10^3/ul Absolute Basos (auto) (0-0.2) 10^3/ul Absolute Nucleated RBC 10^3/ul Nucleated RBC % INR (Anticoag Therapy) 0.93 (0.77-1.02) APTT 34.2 (26.0-36.3) seconds Sodium (135-145) mmol/L Potassium (3.5-5.0) mmol/L Chloride (101-111) mmol/L Carbon Dioxide (22-32) mmol/L Anion Gap (2-11) mmol/L BUN (6-24) mg/dL Creatinine (0.67-1.17) mg/dL Est GFR ( Amer) (>60) Est GFR (Non-Af Amer) (>60) BUN/Creatinine Ratio (8-20) Glucose (70-100) mg/dL Lactic Acid 1.5 (0.5-2.0) mmol/L Calcium (8.6-10.3) mg/dL Total Bilirubin (0.2-1.0) mg/dL AST (13-39) U/L ALT (7-52) U/L Alkaline Phosphatase (34-104) U/L Total Creatine Kinase (10-223) U/L CK-MB (CK-2) (0.6-6.3) ng/mL Troponin I (<0.04) ng/mL C-Reactive Protein (<8.01) mg/L B-Natriuretic Peptide 64 (<=100) pg/mL Total Protein (6.4-8.9) g/dL Albumin (3.2-5.2) g/dL Globulin (2-4) g/dL Albumin/Globulin Ratio (1-3) Influenza A (Rapid) (Negative) Microbiology and Other Data: Microbiology 10/09/18 14:47 Influenza Types A,B Antigen - Final Nasal Specimen received for Influenza A/B Molecular testing Diagnostic Imaging: Patient Name: PATO BUSBY Medical Record#: [id number] Ordering Physician: Flori Juárez DO Acct.#: [id number] : 1960 Age: 58 Sex: M Location: [address] [place] [address] - MEDICAL/TELEMETRY Exam Date: 10/23/18 8275 ADM Status: ADM IN Order Information: CHEST AP OR PORT Accession Number: [id number] CPT: 97532 INDICATION: Fever. COMPARISON: Comparison is made with a prior chest x-ray study from October 22, 2017. TECHNIQUE: A portable view of the chest was obtained. FINDINGS: Cardiac and mediastinal contours appear to be within normal limits. There is a PICC present which demonstrates normal course. The catheter tip projects over the superior vena cava. The lungs are underinflated. There is a infiltrate at the left lung base which appears unchanged. No pleural effusion is seen. IMPRESSION: SMALL LEFT BASILAR INFILTRATE. Assess/Plan/Problems-Billing Assessment: This is a 58 year old male with history of ETOH abuse that was intubated for severe withdrawal and agitation, extubated on 10/20/18, downgraded to medical floor 10/23/18 and remains with encephalopathy and new fever. - Patient Problems (1) Acute respiratory failure with hypoxia Code(s): J96.01 - ACUTE RESPIRATORY FAILURE WITH HYPOXIA SNOMED Code(s): 82527521 Comment: - 2/2 ETOH Withdrawal - Extubated 10/20 - Now on room air, resolved (2) Influenza Code(s): J11.1 - FLU DUE TO UNIDENTIFIED INFLUENZA VIRUS W OTH RESP MANIFEST SNOMED Code(s): 5599897 Comment: - Completed tamiflu course - suspected CAP at arrival that was treated with zosyn, however has new fever and consolidation on CXR last night (3) VAP (ventilator-associated pneumonia) Code(s): J95.851 - VENTILATOR ASSOCIATED PNEUMONIA SNOMED Code(s): 354816759 Comment: - New fever overnight - CXR as above - Since patient has had prolinged hospitalization and was on ventilator for one week, will treat with VAP/HAP with vanco, cefepime and levaquin - Tylenol for fevers (4) Hepatic encephalopathy Code(s): K72.90 - HEPATIC FAILURE, UNSPECIFIED WITHOUT COMA SNOMED Code(s): 94397958 Comment: - 2/2 chronic ETOH abuse and severe withdrawal and respiratory failure/ metabolic derangement, but not currently detoxing - Does seem to have minor improvement in [place] today - Seroquel BID, avoid benzos if possible (ativan IV for severe agitation only) - Continue supportive care, will need to contact HC proxy if ready for discharge but still altered (5) HTN (hypertension) Code(s): I10 - ESSENTIAL (PRIMARY) HYPERTENSION SNOMED Code(s): 57583942 Comment: - Combination of what is likely untreated HTN with recent withdrawal - Stable on clonidine patch, norvasc and MARILU - Metoprolol PRN, monitor for tachycardia which he had this AM but is now 80's and RSR (6) Alcoholic hepatitis Code(s): K70.10 - ALCOHOLIC HEPATITIS WITHOUT ASCITES SNOMED Code(s): 869299755 Comment: - Stable, will need outpatient follow up after discharge (7) DVT prophylaxis Code(s): VKB0744 - SNOMED Code(s): 385991013 Comment: - Continue Heparin SQ (8) DNR (do not resuscitate) Status and Disposition: Inpatient for treatement of VAP with IV atbx, will likely need STR.
[2018-10-25] MEDS: Levofloxacin 750 MG IVPREMIX(* 750 MG/150 ML BAG IVPB SCH (17:23)
[2018-10-25] MEDS: diPHENhydraMINE PO* 25 MG PO PRN (20:47)
[2018-10-25] MEDS: Melatonin 3 MG TAB PO SCH (20:47)
[2018-10-26] MEDS: Cefepime 2 GM in Dextrose(*) 2 GM/50 ML BAG IV SCH ×3 (05:16→21:48)
[2018-10-26] MEDS: Vancomycin(*) 1,250 MG in NS 0.9% 250 ML* 250 ML IVPB SCH (06:00)
[2018-10-26] MEDS ORDERED: Vancomycin Trough Check NOTE FOLLOW UP ONE (06:00)
[2018-10-26] MEDS: Folic Acid TAB* 1 MG NG TUBE SCH (10:04)
[2018-10-26] MEDS: Metoprolol Tartrate TAB* 25 MG PO SCH ×2 (10:04→19:44)
[2018-10-26] MEDS: Multivitamins ADULT w/MIN LIQ* 15 ML UDC NG TUBE SCH (10:04)
[2018-10-26] MEDS: Thiamine TAB* 100 MG TAB PO SCH (10:04)
[2018-10-26] MEDS: Lisinopril TAB* 10 MG PO SCH (10:04)
[2018-10-26] MEDS: Vancomycin(*) 1,000 MG in NS 0.9% 250 ML* 250 ML IVPB SCH ×2 (10:09→16:55)
[2018-10-26] MEDS: Lansoprazole SUSP* ORALSYR 3 MG/ML PO SCH (10:18)
[2018-10-26] MEDS: Aspirin 81 mg CHEW TAB* 81 MG TAB.CHEW PO SCH (10:18)
[2018-10-26] MEDS: Heparin VIAL(*) 5000 UNITS/ML VIAL (FIVE THOUSAND) SUBCUT SCH ×2 (10:18→19:42)
[2018-10-26] MEDS: QUEtiapine TAB* 25 MG PO SCH ×2 (10:18→19:43)
[2018-10-26] MEDS: amLODIPine TAB* 5 MG PO SCH (10:18)
--- NOTE | 2018-10-26 12:16 | PN ---
Subjective Date of Service: 10/26/18 Interval History: Mr. Gill is feeling well today. He offers no complaints. He believes we are in an abandoned warehouse and he is quite concerned about my safety. He is not able to have any meaningful conversation. He denies CP, SOB, N/V. Family History: Unchanged from Admission Social History: Unchanged from Admission Past Medical History: Unchanged from Admission Objective Active Medications: Acetaminophen (Tylenol Tab*) 650 mg PO Q6H PRN FEVER Albuterol (Ventolin 2.5 Mg/3 Ml Neb.Janessa*) 2.5 mg INH Q2H PRN SOB/WHEEZING Amlodipine Besylate (Norvasc Tab*) 10 mg PO DAILY [facility] Aspirin (Aspirin 81 Mg Chew Tab*) 81 mg PO DAILY [facility] Clonidine HCl (Tdpesjjf-Lpg-1 0.3 Mg Patch*) 0.3 mg TRANSDERM Q7D [facility] Diphenhydramine HCl (Benadryl Po*) 25 mg PO BEDTIME PRN AGITATION Folic Acid (Folvite Tab*) 1 mg NG TUBE DAILY [facility] Heparin Sodium (Porcine) (Heparin Vial(*)) 5,000 units SUBCUT Q12HR [facility] Heparin Sodium (Porcine) (Heparin Flush Picc/Ml/Cvc(*)) 1 - 3 ml FLUSH 0600, 1800 JANINA; Protocol Levofloxacin/Dextrose (Levaquin 750 Mg Ivpremix(*)) 750 mg in 150 mls @ 100 mls /hr IVPB Q24H [facility] Cefepime HCl (Maxipime 2 Gm In Dextrose Duplex (*)) 2 gm in 50 mls @ 100 mls/ hr IV Q8H [facility] Vancomycin HCl 1,000 mg/ (Sodium Chloride) 250 mls @ 166.667 mls/hr IVPB Q8H [facility] Lansoprazole (Lansoprazole Susp* Oralsyr) 30 mg PO DAILY [facility] Lisinopril (Prinivil Tab*) 20 mg PO DAILY [facility] Lorazepam (Ativan Inj*) 1 mg IV PUSH Q6H PRN AGITATION Melatonin (Melatonin) 6 mg PO BEDTIME [facility]AN[facility]; Protocol Metoprolol Tartrate (Lopressor Iv*) 5 mg IV Q4H PRN SBP>170 or HR >120 Metoprolol Tartrate (Lopressor Tab*) 25 mg PO BID [facility] Multivitamins (Theragran W/Minerals Liq*) 15 ml NG TUBE DAILY [facility] Olanzapine (Zyprexa Im (Nf)) 5 mg IM Q12HR PRN; Protocol AGITATION Ondansetron HCl (Zofran Inj*) 4 mg IV Q6H PRN NAUSEA Quetiapine Fumarate (Seroquel Tab*) 25 mg PO BID [facility] Thiamine HCl (Vitamin B-1 Tab*) 100 mg PO DAILY [facility] Vital Signs - 8 hr 10/26/18 10/26/18 10/26/18 06:50 06:53 07:41 Temperature 98.0 F Pulse Rate 100 Respiratory 18 18 24 Rate Blood Pressure 142/88 (mmHg) O2 Sat by Pulse 98 Oximetry 10/26/18 11:44 Temperature 98.6 F Pulse Rate 102 Respiratory 16 Rate Blood Pressure 149/88 (mmHg) O2 Sat by Pulse 95 Oximetry Oxygen Devices in Use Now: None Appearance: Middle aged male sitting in bed in NAD Eyes: No Scleral Icterus Ears/Nose/Mouth/Throat: Mucous Membranes Moist Neck: NL Appearance and Movements; NL JVP, Trachea Midline Respiratory: Symmetrical Chest Expansion and Respiratory Effort, Clear to Auscultation Cardiovascular: NL Sounds; No Murmurs; No JVD, RRR Abdominal: NL Sounds; No Tenderness; No Distention Extremities: No Edema Skin: No Rash or Ulcers Neurological: - - Oriented to self and time Nutrition: Taking PO's Result Diagrams: 10/24/18 04:17 10/27/18 05:31 Assess/Plan/Problems-Billing Assessment: Mr. Gill is a 58 yo M with PMH of ETOH abuse that was intubated for severe withdrawal and agitation, extubated on 10/20/18, downgraded to medical floor and remains with encephalopathy and ventilator associated pneumonia. - Patient Problems (1) Pneumonia Code(s): J18.9 - PNEUMONIA, UNSPECIFIED ORGANISM Comment: - Afebrile since 10/23 - CXR on 10/23 shows small left basilar infiltrate - Since patient has had prolinged hospitalization and was on ventilator for one week, will treat as VAP/HAP, though not clear if this actually represents VAP - Appreciate ID consult - Continue vanco, cefepime and Levaquin (2) Hepatic encephalopathy Code(s): K72.90 - HEPATIC FAILURE, UNSPECIFIED WITHOUT COMA Comment: - Secondary to chronic ETOH abuse and severe withdrawal and respiratory failure/ metabolic derangement - Will need to contact HCP if ready for discharge but still altered - Recheck ammonia tomorrow - Continue Seroquel, lorazepam (3) Alcoholic hepatitis Code(s): K70.10 - ALCOHOLIC HEPATITIS WITHOUT ASCITES Comment: - LFTs moderately elevated - Stable, but will need outpatient follow up after discharge (4) Acute respiratory failure with hypoxia Code(s): J96.01 - ACUTE RESPIRATORY FAILURE WITH HYPOXIA Comment: - Resolved - Secondary to ETOH withdrawal - Extubated 10/20 (5) Influenza Code(s): J11.1 - FLU DUE TO UNIDENTIFIED INFLUENZA VIRUS W OTH RESP MANIFEST Comment: - Resolved - Completed Tamiflu course (6) HTN (hypertension) Code(s): I10 - ESSENTIAL (PRIMARY) HYPERTENSION Comment: - Slightly hypertensive, SBP 130-140s - Combination of what is likely untreated HTN with recent withdrawal - Continue amlodipine, lisinopril, clonidine, metoprolol (7) DVT prophylaxis Current Visit: Yes Status: Acute Code(s): VXP0104 - SNOMED Code(s): 963005491 Comment: - Heparin SQ (8) DNR (do not resuscitate) Comment: Status and Disposition: Inpatient. Anticipate d/c when medically stable. Will likely need HIGINIO. Attending: Daiana Toussaint
[2018-10-26] MEDS: Melatonin 3 MG TAB PO SCH (19:43)
[2018-10-26] MEDS ORDERED: Levofloxacin 750 MG IVPREMIX(* 750 MG/150 ML BAG IVPB SCH (20:00)
[2018-10-27] MEDS: Vancomycin(*) 1,000 MG in NS 0.9% 250 ML* 250 ML IVPB SCH ×2 (02:01→10:20)
[2018-10-27] MEDS: Cefepime 2 GM in Dextrose(*) 2 GM/50 ML BAG IV SCH ×2 (04:37→12:35)
[2018-10-27 05:59] LABS: BUN/Creatinine Ratio 18.2 (8-20); Calcium 8.7 mg/dL (8.6-10.3); EGFR African American 151.1 (>60); EGFR Non-African American 124.9 (>60); Magnesium 1.7 mg/dL (1.9-2.7); Potassium 3.5 mmol/L (3.5-5.0)
[2018-10-27 07:44] LABS: Albumin 3.5 g/dL (3.2-5.2); Globulin 3.4 g/dL (2-4); Total Bilirubin 0.7 mg/dL (0.2-1.0); Total Protein 6.9 g/dL (6.4-8.9)
[2018-10-27] MEDS ORDERED: NS 0.9% 250 ML* 250 ML ONE (09:40)
[2018-10-27] MEDS: Aspirin 81 mg CHEW TAB* 81 MG TAB.CHEW PO SCH (09:57)
[2018-10-27] MEDS: amLODIPine TAB* 5 MG PO SCH (09:57)
[2018-10-27] MEDS: Heparin VIAL(*) 5000 UNITS/ML VIAL (FIVE THOUSAND) SUBCUT SCH ×2 (09:58→21:06)
[2018-10-27] MEDS: Lisinopril TAB* 10 MG PO SCH (09:58)
[2018-10-27] MEDS: Folic Acid TAB* 1 MG NG TUBE SCH (09:58)
[2018-10-27] MEDS: Thiamine TAB* 100 MG TAB PO SCH (09:59)
[2018-10-27] MEDS: QUEtiapine TAB* 25 MG PO SCH ×2 (09:59→21:07)
[2018-10-27] MEDS: Metoprolol Tartrate TAB* 25 MG PO SCH ×2 (09:59→21:08)
[2018-10-27] MEDS ORDERED: Folic Acid TAB* 1 MG PO SCH (10:07)
[2018-10-27] MEDS: Multivitamins ADULT w/MIN LIQ* 15 ML UDC NG TUBE SCH (10:54)
[2018-10-27] MEDS: Lansoprazole SUSP* ORALSYR 3 MG/ML PO SCH (10:54)
[2018-10-27] MEDS: Multivitamins/Minerals TAB PO SCH (12:35)
--- NOTE | 2018-10-27 13:27 | CONS ---
CONSULTATION REPORT: DATE OF CONSULT: 10/27/18 REQUESTING PROVIDER: Kristen Kim NP CONSULTING SERVICE: Infectious Disease. REASON FOR CONSULT: Question of pneumonia. IMPRESSION: 1. One time fever on the and had started vancomycin, cefepime, and Levaquin for pneumonia coverage. An x-ray done at that time showed an infiltrate at the left base which upon my review is essentially unchanged from x -rays obtained throughout his stay. He had had no sputum production, cough, or increased oxygen requirement. I do not think he had a pneumonia. 2. Influenza with pneumonia on admission. 3. Alcohol withdrawal. 4. Alcoholic hepatitis. RECOMMENDATIONS: Stop vancomycin, cefepime, Levaquin. We will follow his vitals. HISTORY OF PRESENT ILLNESS: A 58-year-old man admitted with influenza, alcohol withdrawal, and was intubated for a combination of those. He had a bilateral infiltrate including at the left base at the time of admission. He was treated initially with Zosyn and Tamiflu. His blood cultures were negative. He had a fever on the after being extubated. His blood cultures taken then were negative. He had a one time fever, a white count of 11,000. He had no new oxygen requirement. No cough or sputum production. He has been on vancomycin, cefepime, and Levaquin; tolerating that well. He has had no further fevers. He had a repeat influenza PCR on the and urine cultures that were both negative. Today he has no cough, dyspnea, or oxygen requirement other than the same one we all have. PAST MEDICAL HISTORY: 1. Alcoholic hepatitis. 2. History of alcohol withdrawal. 3. Hypertension. 4. History of ureteral stent for nephrolithiasis. MEDICATIONS: 1. Tylenol. 2. Albuterol. 3. Amlodipine. 4. Aspirin. 5. Cefepime 2 g IV every 8 hours. 6. Heparin flush. 7. Heparin subcutaneous injection. 8. Lansoprazole. 9. Levofloxacin 750 mg IV daily. 10. Lisinopril. 11. Lorazepam. 12. Metoprolol. 13. Olanzapine. 14. Seroquel. 15. Thiamine. 16. Vancomycin 1 g every 8 hours. ALLERGIES: No known drug allergies. FAMILY HISTORY: Mother is alive without medical problems. Father from diabetes complications. SOCIAL HISTORY: He is a 40-pack year smoker. He drinks about 15 beers a day. 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 He is not . REVIEW OF SYSTEMS: A 14-point review was negative except as noted above in the history of present illness. PHYSICAL EXAM: Vital Signs: Temperature 37.4, heart rate 80, respiratory rate 16, blood pressure 147/86, and oxygen saturation 97% on room air. General: He is awake and not in distress. Neurologic: He is oriented x1 to self, but not to date or location. HEENT: There is no conjunctival hemorrhage. Oropharynx without lesions. Neck: Neck is supple without mass. Heart: Regular rate and rhythm without murmurs, rubs, or gallops. Lungs: Clear to auscultation bilaterally. Abdomen: Soft, nontender, and nondistended. There are bowel sounds present. Skin: There is no rash or splinter hemorrhage. Musculoskeletal : There is no spinous tenderness to palpation or joint synovitis. LABORATORY DATA: White blood cell count 11, hemoglobin 14, platelets 473. Creatinine 0.6. ALT is 131. Please see impressions and recommendations outlined above which I discussed with Kristen Kim NP. Thanks for asking me to see Mr. Gill in consultation. [id number]/[facility] #: [id number] ELY
--- NOTE | 2018-10-27 13:44 | PN ---
Subjective Date of Service: 10/27/18 Interval History: Mr. Gill is feeling better today. He is able to verbalize correct location and situation. He remembers feeling slightly confused yesterday, but cannot remember the events from yesterday or what we spoke about. He is anxious to return home. He lives alone in a trailer, but has a neighbor, Sharon, who checks on him often and can help him with whatever he needs. He may be open to AA, but not anything else for his alcohol addiction. He feels as though he will be able to quit drinking like he quit smoking. He denies CP, SOB, N/V, dizziness. Family History: Unchanged from Admission Social History: Unchanged from Admission Past Medical History: Unchanged from Admission Objective Active Medications: Acetaminophen (Tylenol Tab*) 650 mg PO Q6H PRN FEVER Albuterol (Ventolin 2.5 Mg/3 Ml Neb.Janessa*) 2.5 mg INH Q2H PRN SOB/WHEEZING Amlodipine Besylate (Norvasc Tab*) 10 mg PO DAILY [facility] Aspirin (Aspirin 81 Mg Chew Tab*) 81 mg PO DAILY [facility] Clonidine HCl (Bkwpdnzl-Ukg-9 0.3 Mg Patch*) 0.3 mg TRANSDERM Q7D [facility] Diphenhydramine HCl (Benadryl Po*) 25 mg PO BEDTIME PRN AGITATION Folic Acid (Folvite Tab*) 1 mg PO DAILY [facility] Heparin Sodium (Porcine) (Heparin Vial(*)) 5,000 units SUBCUT Q12HR [facility] Lansoprazole (Lansoprazole Susp* Oralsyr) 30 mg PO DAILY [facility] Lisinopril (Prinivil Tab*) 20 mg PO DAILY [facility] Lorazepam (Ativan Inj*) 1 mg IV PUSH Q6H PRN AGITATION Melatonin (Melatonin) 6 mg PO BEDTIME JANINA; Protocol Metoprolol Tartrate (Lopressor Iv*) 5 mg IV Q4H PRN SBP>170 or HR >120 Metoprolol Tartrate (Lopressor Tab*) 25 mg PO BID [facility] Multivitamins/Minerals (Theragran/Minerals Tab*) 1 tab PO DAILY [facility] Olanzapine (Zyprexa Im (Nf)) 5 mg IM Q12HR PRN; Protocol AGITATION Ondansetron HCl (Zofran Inj*) 4 mg IV Q6H PRN NAUSEA Quetiapine Fumarate (Seroquel Tab*) 25 mg PO BID [facility] Thiamine HCl (Vitamin B-1 Tab*) 100 mg PO DAILY [facility] Vital Signs - 8 hr 10/27/18 10/27/18 10/27/18 07:18 08:34 11:25 Temperature 98.4 F 99.4 F Pulse Rate 114 88 Respiratory 18 16 16 Rate Blood Pressure 153/86 147/86 (mmHg) O2 Sat by Pulse 97 97 Oximetry Oxygen Devices in Use Now: None Appearance: Middle-aged male sitting in bed in NAD Eyes: No Scleral Icterus Ears/Nose/Mouth/Throat: Mucous Membranes Moist Neck: NL Appearance and Movements; NL JVP, Trachea Midline Respiratory: Symmetrical Chest Expansion and Respiratory Effort, Clear to Auscultation Cardiovascular: NL Sounds; No Murmurs; No JVD, RRR Abdominal: NL Sounds; No Tenderness; No Distention Extremities: No Edema Skin: No Rash or Ulcers Neurological: Alert and Oriented x 3 Lines/Tubes/Other Access: Clean, Dry and Intact Peripheral IV Nutrition: Taking PO's Result Diagrams: 10/24/18 04:17 10/27/18 05:31 Assess/Plan/Problems-Billing Assessment: Mr. Gill is a 58 yo M with PMH of ETOH abuse that was intubated for severe withdrawal and agitation, extubated on 10/20/18, downgraded to medical floor and remains with encephalopathy. - Patient Problems (1) Pneumonia Code(s): J18.9 - PNEUMONIA, UNSPECIFIED ORGANISM Comment: - Afebrile since 10/23 - CXR on 10/23 shows small left basilar infiltrate - Since patient has had prolinged hospitalization and was on ventilator for one week, there was concern for VAP - Appreciate ID consult; recommends stopping all abx, does not believe this was VAP - Stop vanco, cefepime and Levaquin (2) Hepatic encephalopathy Code(s): K72.90 - HEPATIC FAILURE, UNSPECIFIED WITHOUT COMA Comment: - Secondary to chronic ETOH abuse and severe withdrawal and respiratory failure/ metabolic derangement - Ammonia normal - Continue Seroquel (3) HTN (hypertension) Code(s): I10 - ESSENTIAL (PRIMARY) HYPERTENSION Comment: - Slightly hypertensive, SBP 140-150s - Combination of what is likely untreated HTN with recent withdrawal; was not on any antihypertensives on admission; will attempt to decrease number of agents as it is not clear that he will be compliant with medications going forward and would like to simplify his d/c medication list - Continue amlodipine; increase lisinopril and metoprolol; d/c clonidine (4) Alcoholic hepatitis Code(s): K70.10 - ALCOHOLIC HEPATITIS WITHOUT ASCITES Comment: - LFTs moderately elevated - Stable, but will need outpatient follow up after discharge (5) Acute respiratory failure with hypoxia Code(s): J96.01 - ACUTE RESPIRATORY FAILURE WITH HYPOXIA Comment: - Resolved - Secondary to ETOH withdrawal - Extubated 10/20 (6) Influenza Code(s): J11.1 - FLU DUE TO UNIDENTIFIED INFLUENZA VIRUS W OTH RESP MANIFEST Comment: - Resolved - Completed Tamiflu course (7) DVT prophylaxis Current Visit: Yes Status: Acute Code(s): EWB3603 - SNOMED Code(s): 075573038 Comment: - Heparin SQ (8) DNR (do not resuscitate) Comment: Status and Disposition: Inpatient. Anticipate d/c home when medically stable, likely 1-2 more days. Attending: Daiana Toussaint
[2018-10-27] MEDS ORDERED: Magnesium Sulfate IV* 3 GM in NS 0.9% 100 ML* 100 ML IVPB ONE (14:49)
[2018-10-27] MEDS: Magnesium Oxide TAB* 400 MG PO SCH (21:06)
[2018-10-27] MEDS: Melatonin 3 MG TAB PO SCH (21:07)
[2018-10-28 06:00] LABS: Albumin 3.5 g/dL (3.2-5.2); Albumin/Globulin Ratio 1.1 (1-3); BUN/Creatinine Ratio 18.6 (8-20); Calcium 8.7 mg/dL (8.6-10.3); EGFR African American 171.9 (>60); EGFR Non-African American 142.1 (>60); Globulin 3.1 g/dL (2-4); Potassium 3.7 mmol/L (3.5-5.0); Total Bilirubin 0.6 mg/dL (0.2-1.0); Total Protein 6.6 g/dL (6.4-8.9)
[2018-10-28] MEDS ORDERED: Vancomycin Trough Check NOTE FOLLOW UP ONE (08:30)
[2018-10-28] MEDS: Aspirin 81 mg CHEW TAB* 81 MG TAB.CHEW PO SCH (08:31)
[2018-10-28] MEDS: QUEtiapine TAB* 25 MG PO SCH (08:32)
[2018-10-28] MEDS: amLODIPine TAB* 5 MG PO SCH (08:32)
[2018-10-28] MEDS: Multivitamins/Minerals TAB PO SCH (08:33)
[2018-10-28] MEDS: Magnesium Oxide TAB* 400 MG PO SCH (08:33)
[2018-10-28] MEDS: Thiamine TAB* 100 MG TAB PO SCH (08:33)
[2018-10-28] MEDS: Metoprolol Tartrate TAB* 25 MG PO SCH (08:33)
[2018-10-28] MEDS: Heparin VIAL(*) 5000 UNITS/ML VIAL (FIVE THOUSAND) SUBCUT SCH (08:34)
[2018-10-28] MEDS ORDERED: Lisinopril TAB* 10 MG PO SCH (09:00)
--- NOTE | 2018-10-28 13:31 | CONS ---
CONSULTATION REPORT: DATE OF CONSULT: 10/28/18 ATTENDING CLINICIAN: Kristen Kim NP CONSULTING PHYSICIAN: Dr. Tom Crystal. REASON FOR CONSULT: Hallucinations. HISTORY OF PRESENT ILLNESS: Psychiatry is asked to see this 58-year-old single white alcoholic male admitted on 10/09/18 due to pneumonia and influenza, whose hospital course has been complicated by he patic encephalopathy, acute alcohol withdrawal, and the need for intubation, who is now extubated and being treated on . My understanding is that he is medically cleared for discharge back to [facility] where he resides alone in [place], [place]; however, on the day prior to consultation, he is alleged to have made confused hallucinatory statements. I was reading the staff notes which burton cated that on 10/27/18 he made statements to the effect that staff were standing on the table, squatt ing and urinating on a cake. He was also alluding to animals and people killing babies. They n ote that his delirium has largely resolved at this point, but he continues to have moments of confusi on such as this and they are worried whether he is safe for discharge. When I meet with the patient, he is adamant that he is back at his baseline and he feels like he is being medically imprisoned aga inst his will. He states that he is safe to return to his trail and he does not need further care. He is declining both subacute rehab as well as alcohol rehabilitation. On examination, Mr. Gill does not deny that he is an alcoholic and openly admits to drinking close to 15 beers per day on av rage prior to admission. He does seem to indicate that he has been scared straight, however, saying that this is the sickest that he has been in his life and that he has resolved himself to no longer d rink alcohol or smoke cigarettes. Regarding his hallucinations, he states that he was having a bad d ream that was brought on by his nicotine replacement patch; and although, he was awake, he was having trouble discerning from reality at that time. He states that he is likely to be more oriented and le ss confused in his own home and he does not wish to be sent to any other facility or kept in the hosp ital any further. The patient does have a supportive neighbor, named Shaneka, who has been [facility]. He states that her grandchildren referred him as "grandpa" and that he wants to remain healthy for them. During a routine Mini- Mental State Exam, he was alert, oriented, and answe red questions reasonably well. He denies suicidal or homicidal ideations and is quite consistent in s aying that he would like to go home. He does acknowledge that there is a risk for further pneumonia or other bad medical outcomes such as liver failure if he returns to his drinking habits after discha rge. PAST PSYCHIATRIC HISTORY: The patient was admitted to the adult behavioral science unit in 2004 for depression and anxiety. He has been treated with numerous antidepressants and benzodiazepines in the past, but states that he does not like taking pills and does not wish to be prescribed any psychiatr ic medications. He was apparently started by the hospitalist service on 10/24/18 on a low dose of qu etiapine 25 mg p.o. b.i.d. The patient denies any history of violence towards others. He does admit to a suicidal overdose in the early 1999s after discovering that he was diagnosed with Lyme disease. SUBSTANCE ABUSE HISTORY: The patient has been abusing alcohol since his teenage years. He has never gone to rehabilitation or received any treatment and he does not go to . He smokes 1 to 1-1/2 pac ks of cigarettes per day. He denies abuse of illicit drugs. PAST MEDICAL HISTORY: Significant for kidney stones, right foot surgery, and ureteral stent placemen t. HOME MEDICATIONS: Include: 1. Multivitamin. 2. Ibuprofen for pain. ALLERGIES: He has no known drug allergies. FAMILY HISTORY: The patient's father was an alcoholic. His 2 brothers have suffered from alcohol an d substance abuse. SOCIAL HISTORY: The patient was born in [place], [place] and moved to [place] in the early 1999 s. 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 He has never been and has no children. He lives in a trailer that he owns in [place], [place]. His mother is still alive and resides in [facility]. The patient's younger brother has been incarcerated for burglary and heard larceny whereas his older brother has been incarcerated in the past for murder. The patient is neither mormonism nor spi ritual. He has no history of service. MENTAL STATUS EXAM: The patient is a small of stature white male who is dressed in a patient gown. He has elisabeth-looking skin and he has the odor of chronic alcoholism and appears to be many years olde r than his stated age. He makes good eye contact. He is calm and cooperative. Speech has a normal rate, tone, and volume. Mood appears to be anxious with a corresponding anxious affect. Thought pro cess is linear and goal directed. Thought content is significant for [facility]. He is denying suicidal or homicidal ideations. He denies auditory or visual hallucinations. Ins ight and judgment are markedly impaired given his refusal of substance abuse followup treatment. Cog nitively, he is awake and alert. On the Mini-Mental State Exam, he scores 27/30, losing 1 point for the date, 1 point for the floor and 1 point for delayed recall. Attention, command following, and si tuational orientation are all intact. DIAGNOSES: As follows: [place] I: Alcohol use disorder. Delirium secondary to hepatic insufficiency. [place] II: Deferred. IMPRESSION: The patient is a 58-year-old single white alcoholic male admitted to the [facility] on 10/09/18 due to pneumonia, influenza, as well as alcohol withdrawal, and hepatic insuffi ciency, who has been encephalopathic throughout his hospital course and Psychiatry is being asked to evaluate whether he is safe to go home. At this time, the patient is not demonstrating delirium and he has the capacity to make a decision to leave the hospital. I have strongly encouraged him to purs ue substance abuse treatment, although he is not willing to consider this at this time. He is tiana crouch to receive a list of Alcoholics Anonymous meetings in the community and the [address] [place] [address] staff is going to make this available to him. RECOMMENDATIONS TO PRIMARY TEAM: Psychiatry sees no need for further involuntary medical or psychiat héctor treatment. The patient is to be discharged to his own home with primary care followup. I unders tand that he will be receiving some in-home services and this is very much recommended. I also recom mend that the primary team speak with Mr. Gill's close friend, Shaneka, to encourage her to preven t him from purchasing further alcohol. Psychiatry is signing off this case, but can be reconsulted i n the event if any changes in the patient's presentation. Thank you for the consult. [id number]/[facility] #: [id number]
[2018-10-28 14:17] VITALS: BP 148/82
--- NOTE | 2018-10-28 20:58 | DS ---
CC: [facility] * DISCHARGE SUMMARY: DATE OF ADMISSION: 10/09/18 DATE OF DISCHARGE: 10/28/18 PRIMARY CARE PROVIDER: [facility]. ATTENDING PHYSICIAN: Dr. Alissa Christian * (dictated by Kristen Kim NP). PRIMARY DIAGNOSES: 1. Acute hypoxic respiratory failure. 2. Influenza A. 3. Hepatic encephalopathy. 4. Hypertension. 5. Alcoholic hepatitis. 6. Sepsis. STUDIES WHILE IN THE HOSPITAL: 1. Chest x-ray on 10/09/18 reads as bronchopneumonia. 2. EKG on 10/09/18 shows sinus tachycardia with a rate of 100, QTc 458. No ischemic changes. 3. Renal ultrasound on 10/10/18 reads as no hydronephrosis or nephrolithiasis. 4. Chest x-ray on 10/12/18 reads as bilateral infiltrates demonstrating interval progression. 5. Chest x-ray on 10/13/18 reads as lines and tubes noted in the body of the report. Persistent but improved airspace disease of the left mid lung. 6. Chest x-ray on 10/14/18 reads as lines and tubes noted in the body of the report. Persistent but improved multifocal consolidation. 7. Chest x-ray on 10/14/18 reads as lines and tubes noted in the body of the report. Multifocal consolidation somewhat improved from the previous examination. 8. Abdominal x-ray on 10/15/18 reads as nasogastric tube is in place. Air is noted in the right colon. 9. Brain CT on 10/16/18 reads as no acute intracranial pathology. Mild sinus mucosal inflammatory disease with an air-fluid level in the right maxillary sinus. In the correct clinical setting, this may represent acute sinusitis. 10. Transthoracic echocardiogram on 10/16/18 reads as the left ventricular chamber size is normal. Estimated ejection fraction is 50% to 55%. There is septal flattening of the interventricular septum consistent with right ventricular volume or pressure overload. Abnormal left ventricular diastolic function is observed. There is an E/A reversal in the mitral valve flow pattern suggestive of diastolic dysfunction. The right atrium is mildly dilated. The bubble study is negative. A patent foramen ovale is not demonstrated with color Doppler and agitated contrast. There is trace aortic regurgitation. There is trace tricuspid regurgitation. Unable to estimate right ventricular systolic pressure. There was not any prior study for comparison. 11. Carotid Doppler study on 10/17/18 reads as no hemodynamically significant stenosis of the right internal carotid artery. No hemodynamically significant stenosis of the left internal carotid artery. 12. Chest x-ray on 10/21/18 reads as no active cardiopulmonary disease was noted. NG tube may be in the distal esophagus. 13. Chest x-ray on 10/21/18 reads as cardiomegaly with interstitial edema consistent with vascular congestion. Feeding tube is coiled in the stomach. 14. Chest x-ray on 10/21/18 reads as the nasogastric tube should be repositioned. No significant change in mild bilateral airspace consolidation. 15. Chest x-ray on 10/22/18 reads as no active cardiopulmonary disease was noted. Feeding tube is not visualized. 16. Chest x-ray on 10/23/18 reads as small left basilar infiltrate. CONSULTATIONS WHILE IN THE HOSPITAL: 1. The patient was seen in consultation by Dr. Campos from Neurology on . 2. The patient was seen in consultation by Dr. Machuca from Infectious Disease on 10/27/18. 3. The patient was seen in consultation by Dr. Crystal from Psychiatry on . HISTORY OF PRESENT ILLNESS AND HOSPITAL COURSE: Mr. Gill is a 58-year-old male with no significant past medical history, who presented to the emergency room on 10/09/18 with complaints of shortness of breath, cough and weakness. Please see the history and physical by Dr. Powell for complete summary of the events leading up to this hospitalization. In short, the patient was noted to be a poor historian and was not able to provide much history. He noted feeling generally ill and reported some mild chest discomfort and abdominal pain. He did note that he was drinking 15 beers per day. In the emergency room, the patient was found to be positive for influenza A. The patient did meet sepsis criteria with tachycardia and tachypnea and received appropriate IV fluids. The patient was felt to be in active alcohol withdrawal as he reported he had decreased alcohol intake in the last couple days. He was noted to have transaminitis consistent with alcoholic hepatitis. He was admitted by the hospitalist service. The patient went through significant alcohol withdrawal and required a large amount of benzodiazepines to manage his symptoms. On 10/12/18, the patient was noted to have consistently high WAM scores and subsequently was transferred to the ICU for a Precedex drip. He was also noted to have a fever at that point up to 100.3, though this did increase further. The patient had a chest x-ray, which was concerning for pneumonia. It was felt that this was likely aspiration pneumonia and so the patient was started on Zosyn. The patient was transferred under the care of the paper cone drying machine operator. On 10/13/18, the patient continued to have severe agitation and withdrawal symptoms requiring high amounts of sedation and ultimately required intubation. The patient was also started on vanco for additional coverage for his pneumonia. An NG tube was placed to meet his nutritional requirements. The patient remained intubated in the ICU for a number of days. He was ultimately extubated on 10/20/18 and weaned off Precedex at that point. The patient was noted to be hypertensive and ultimately was started on a clonidine patch, amlodipine, and an MARILU inhibitor. Rifaximin was started for his hepatic encephalopathy. There was some concern for neurological deficits when the patient was still in the ICU and Neurology was consulted, but ultimately those resolved and this was felt to be secondary to his hepatic encephalopathy. The patient was able to be transferred out of the ICU on 10/23/18. That night, he was noted to be febrile and blood cultures, urinalysis and a chest x-ray were checked. Urinalysis did not show any evidence of UTI and blood cultures did not show any growth. The patient was quite confused that night and did end up pulling out his PICC line. He was quite disoriented. Because of the infiltrates noted on chest x-ray, there was a concern for pneumonia and the patient was started on vanco, cefepime , and Levaquin due to his recent stay in the intensive care unit and intubation. The patient was seen by Dr. Machuca of Infectious Disease on 10/27. He felt as though the chest x-ray was not indicative of a pneumonia and the infiltrate that was seen on chest x-ray appears to have been present since admission. He recommended stopping all antibiotics and continuing to monitor. On 10/27/18, the patient was noted to have greatly improved mentation, although later that night he reportedly began hallucinating and told nursing staff that he saw hospital staff "slaughtering people and eating babies" and "covered in animal carcasses." I saw the patient this morning on 10/27/18 and his orientation is certainly decreased from yesterday. He is perseverating and somewhat unclear on the place, though completely disoriented to situation. I did ask Psychiatry to see the patient because of these concerns for hallucinations and Dr. Crystal saw the patient today. He felt as though the patient did not require any psychiatric treatment. He felt as though the patient did have capacity to make his own medical decisions, although he is quite concerned about the likelihood of relapse and the varying orientation related to his hepatic encephalopathy; however, he felt as though the patient was stable for discharge. On exam this morning, the patient reported feeling frustrated, as he thought he was going to leave at 7 a.m. this morning. He was very disoriented to situation and not able to have a meaningful conversation about his goals of care. His lung sounds are clear and he is saturating well on room air. He denies any cough. He denies any chest pain, abdominal pain, nausea, or vomiting. He was strongly encouraged to abstain from alcohol due to his alcoholic hepatitis and hepatic encephalopathy. I did speak at length with the patient yesterday and today and stressed the fact that if the patient continues drinking, he ultimately will secondary to liver failure. He did verbalize understanding of this, though again it is unclear how much he actually is retaining. Case Management has been in close contact with the patient's friend and neighbor, Shaneka, who does care for the patient. Shaneka reports that she feels comfortable caring for him and will be able to provide care for him at home. It has been stressed to her that he should abstain from alcohol and she should not be supplying him with any alcohol. It was also recommended that she help him manage his medications as he is being discharged with a number of new medications. She has assured Case Management that she will be able to help him manage at home. Mr. Gill is stable for discharge today. Vital signs are as follows: Temp 98.6, heart rate 87, respiratory rate 16, oxygen saturation 96% on room air, blood pressure 148/82. DISCHARGE MEDICATIONS: New medications: 1. Amlodipine 10 mg p.o. daily. 2. Lactulose 15 mL p.o. t.i.d. 3. Lisinopril 30 mg p.o. daily. 4. Metoprolol tartrate 37.5 mg p.o. b.i.d. 5. Seroquel 25 mg p.o. b.i.d. 6. Rifaximin 550 mg p.o. b.i.d. 7. Aspirin 81 mg p.o. daily. 8. Folic acid 1 mg p.o. daily. 9. Magnesium oxide 400 mg p.o. b.i.d. 10. Thiamine 100 mg p.o. daily. Continued medications: 1. Multivitamin 1 tab p.o. daily. 2. Ibuprofen 400 mg p.o. q.6 hours p.r.n. pain. DISCHARGE PLAN: Mr. Gill will be discharged home under the care of his friend and neighbor, Shaneka. Activity will be as tolerated. Diet should be heart healthy. Medications are noted above. The patient has been placed on amlodipine, lisinopril, and metoprolol to manage his blood pressure, though he does remain hypertensive and will likely need further dose adjustments in the future. He additionally is being discharged on lactulose and rifaximin to help manage his hepatic encephalopathy. He has also been prescribed Seroquel, which he has been receiving while here in the hospital to help manage his behavioral issues. Other medications are noted above. The patient has been referred to visiting nurse services. He has been advised to abstain from alcohol. He does not have a PCP and so we did make an appointment with the [facility] and that is on 10/31/18 at 1:20 p.m. The patient has been instructed to return to the emergency room or nearest hospital for any worsening of symptoms, shortness of breath, lightheadedness, dizziness, chest discomfort, high fevers, chills, night sweats, loss of consciousness, or any other worrisome signs or symptoms. DISCHARGE CONDITION: Stable. DISCHARGE DISPOSITION: Home. This is a summarized report of a complex medical history and hospital stay. For further details, please see the entire medical record. TIME SPENT: Approximately 50 minutes was spent on this discharge. KRISTEN KIM, AIR TRAFFIC CONTROL EQUIPMENT REPAIRER [id number]/[facility] #: [id number] [facility] CENTERLesley
== END 2018-10-28 16:30 | disposition home health service (06) | DRG 870 ==
LOC: ED 14:29 → MED 21:46 → ICU 10-12 09:57 → MEDTELE 10-23 16:17
PROVIDERS: ADMIT Hospitalist; ATTEND Internal Medicine
PROC: 5A1955Z Respiratory Ventilation, Greater than 96 Consecutive Hours (ICD-10-PCS; principal; 2018-10-13)
PROC: 0BH17EZ Insertion of Endotracheal Airway into Trachea, Via Natural or Artificial Opening (ICD-10-PCS; 2018-10-13)
PROC: 0DH67UZ Insertion of Feeding Device into Stomach, Via Natural or Artificial Opening (ICD-10-PCS; 2018-10-15)
DX: A41.9 Sepsis, unspecified organism (principal); K72.91 Hepatic failure, unspecified with coma; J96.01 Acute respiratory failure with hypoxia; J09.X1 Influenza due to identified novel influenza A virus with pneumonia; E87.1 Hypo-osmolality and hyponatremia; M62.82 Rhabdomyolysis; F10.239 Alcohol dependence with withdrawal, unspecified; K70.10 Alcoholic hepatitis without ascites; H57.02 Anisocoria; E87.6 Hypokalemia; Z66 Do not resuscitate; I10 Essential (primary) hypertension; K29.70 Gastritis, unspecified, without bleeding; R74.0 Nonspecific elevation of levels of transaminase and lactic acid dehydrogenase [LDH]; R10.9 Unspecified abdominal pain; F17.210 Nicotine dependence, cigarettes, uncomplicated; R19.7 Diarrhea, unspecified; G51.0 Bell's palsy; E86.1 Hypovolemia; J01.00 Acute maxillary sinusitis, unspecified; Z81.1 Family history of alcohol abuse and dependence; Z84.89 Family history of other specified conditions; Z83.3 Family history of diabetes mellitus; Z79.1 Long term (current) use of non-steroidal anti-inflammatories (NSAID)
CPT/HCPCS: 36415; 36600; 70450; 71045; 71046; 74018; 76775; 80048; 80053; 80061; 80076; 80202; 81003; 81015; 82140; 82330; 82550; 82553; 82803; 83036; 83605; 83630; 83735; 83880; 84100; 84132; 84443; 84484; 85025; 85027; 85610; 85730; 86140; 87040; 87045; 87046; 87086; 87493; 87641; 87899; 93005; 93306; 93880; 94002; 94003; 94640; 99283; A9270-GY; C1751; G8978-GP-CI; G8979-GP-CI; G8980-GP-CI; G8987-GO-CI; G8988-GO-CI; G8989-GO-CI; J0330; J0360; J0456; J0610; J0692; J0696; J1200; J1630; J1644; J2060; J2250; J2405; J2543; J2560; J2704; J3010; J3370; J3411; J3475; J3480; J3490; J7512

== ENCOUNTER 2023-07-26 06:53 | Observation (INO) ==
[2023-07-26 07:45] LABS: ABS Basophils 0.1 10^3/uL (0.0-0.1); ABS Eosinophils 0.2 10^3/uL (0.0-0.5); ABS Lymphocytes 1.4 10^3/uL (1.0-4.8); ABS Monocytes 1.2 10^3/uL (0.0-1.1); ABS Neutrophils 3.4 10^3/uL (1.5-7.6); Eosinophil % 2.7 %; Hematocrit 39.9 % (38-53); Hemoglobin 13.8 g/dL (13.2-16.3); Lymphocyte % 22.8 %; Mean Corpuscular Hemoglobin 33.1 pg (27-33); Mean Corpuscular Hgb Conc 34.5 g/dL (31-36); Mean Corpuscular Volume 95.9 fL (80-97); Mean Platelet Volume 8.4 fL (7.5-11.2); Nucleated Red Blood Cells % 0.1 %/100WBC (0.0-0.8); Platelet Count 165 10^3/uL (150-450); Red Blood Count 4.16 10^6/uL (4.06-5.63); Red Cell Distribution Width 17.3 % (12-17); White Blood Count 6.2 10^3/uL (3.6-10.2)
[2023-07-26 08:04] LABS: Albumin 2.6 g/dL (3.2-5.2); Albumin/Globulin Ratio 0.6 (1-3); Calcium 7.9 mg/dL (8.6-10.3); Creatinine, Serum 0.53 mg/dL (0.67-1.17); Globulin 4.2 g/dL (2-4); Magnesium 1.6 mg/dL (1.9-2.7); Potassium 2.9 mmol/L (3.5-5.0); Total Bilirubin 2.5 mg/dL (0.2-1.0); Total Protein 6.8 g/dL (6.4-8.9)
[2023-07-26 08:12] LABS: INR 1.59 (0.83-1.13)
[2023-07-26] MEDS ORDERED: Potassium EFFERVES 25 meq TAB PO ONE (09:04)
[2023-07-26] MEDS ORDERED: Magnesium Sulf 4 GM/100 ML IV 4,000 MG/100 ML BAG IVPB ONE (10:35)
[2023-07-26] MEDS ORDERED: LORazepam 2 mg VIAL 1 ml IV PUSH PRN (10:36)
[2023-07-26] MEDS ORDERED: Lorazepam PYXIS KEY PRN (10:36)
[2023-07-26] MEDS ORDERED: Thiamine 100 MG/ML 2 ml VIAL 250 MG in NS 0.9% 100 ml BAG 100 ML IV SCH (11:00)
[2023-07-26 11:21] LABS: Urine Benzodiazepine Screen None Detected (None Detect); Urine Cannabinoids Screen None Detected (None Detect); Urine Opiates Screen None Detected (None Detect)
[2023-07-26] MEDS: Albumin Human 25% 25 GM/100 ML BTL IV SCH ×2 (17:50→19:54)
[2023-07-26] MEDS ORDERED: Nicotine PATCH 7 MG/24 HR PATCH TRANSDERM SCH (20:00)
[2023-07-27 04:10] VITALS: BP 132/71
== END 2023-07-27 04:45 | disposition left against medical advice (07) ==
LOC: ED 06:53 → EDHOLD 06:53 → MEDTELE 14:54
PROVIDERS: ADMIT Hospitalist; ATTEND Hospitalist